=== PATIENT | male | born 1930 | race Caucasian/White ===

== ENCOUNTER → 2016-10-28 | Outpatient (CLI) | payer MEDICARE, BC ==
--- NOTE | 2016-10-28 11:31 | NM ---
EXAMINATION TYPE: NM bone 3 phase DATE OF EXAM: 10/28/2016 11:20 AM COMPARISON: 07/31 and 08/03/2016 HISTORY: Swelling right foot Triple phase bone scintigraphy was performed following the injection of27.2 mCi Tc 99m MDP. Immediat e images and 3.5 hours post injection images acquired. FINDINGS: Perfusion images demonstrate increased perfusion to the right ankle and midfoot. Blood pool imaging d emonstrates diffuse soft tissue uptake compatible cellulitis. Delayed uptake demonstrates focal abnormal uptake in the region of the fourth and fifth metatarsals o f the right foot. Abnormal uptake involving the MTP joint of both digits likely post arthritic. IMPRESSION: 1. There is persistent abnormal uptake involving the fourth and fifth digit right foot with increased perfusion and soft tissue uptake suggestive of persistent osteomyelitis and cellulitis which may be slightly progressed from the previous exam..
== END | disposition home or self-care (01) ==
LOC: RADNMMAIN 07:24
PROVIDERS: ATTEND Podiatrist
DX: M86.9 Osteomyelitis, unspecified (principal)
CPT/HCPCS: 78315; A9503

== ENCOUNTER 2016-11-17 10:33 | Inpatient (IN) | payer MEDICARE, BC ==
[2016-11-17] MEDS ORDERED: SODIUM CHLORIDE 0.9% 500 ML IV STA (11:10)
[2016-11-17] MEDS ORDERED: ACETAMINOPHEN IV (For NPO) 1,000 MG in SALINE 100 100ML.BAG IVPB STA (11:11)
[2016-11-17] MEDS ORDERED: IBUPROFEN IV 600 MG in SODIUM CHLORIDE 0.9% 250 ML IV STA (11:11)
[2016-11-17] MEDS ORDERED: IPRATROPIUM-ALBUTEROL 3 ML NEB INHALATION STA (11:12)
--- NOTE | 2016-11-17 11:15 | ED ---
General Adult HPI - General Chief complaint: Shortness of Breath Stated complaint: Vomiting Blood Time Seen by Provider: 11/17/16 11:00 Source: patient, RN notes reviewed Mode of arrival: EMS Limitations: no limitations - History of Present Illness Initial comments: This is an 85-year-old male who presents emergency Department because he has been coughing up some blood lately and his oxygenation has been low. Family states it was in the upper 80s. Patient also underwent fever at home yesterday. Patient is feeling worse today and weaker so they brought him to the emergency department. Patient states he has noticed pain somewhat short of breath but states he is coughing but not that much. Patient denies any chest pain or palpitations. Patient denies any abdominal pain patient denies nausea vomiting diarrhea. Patient denies any headache patient denies numbness weakness. Patient denies any dysuria or hematuria. - Related Data Home Medications Medication Instructions Recorded Confirmed Clopidogrel [Plavix] 75 mg PO DAILY 02/28/16 11/17/16 Enalapril/Hydrochlorothiazide 1 tab PO DAILY 02/28/16 11/17/16 [Vaseretic 10-25 mg] Isosorbide Mononitrate ER [Imdur] 60 mg PO DAILY 02/28/16 11/17/16 Metoprolol Succinate [Toprol XL] 25 mg PO DAILY 02/28/16 11/17/16 Carbidopa/Levodopa 2 tab PO DAILY@0900,1400 02/29/16 11/17/16 [Carbidopa-Levodopa 25-100 Tab] Alpha Lipoic Acid 500mg 500 mg PO DAILY 07/30/16 11/17/16 Aspirin EC [Ecotrin Low Dose] 81 mg PO DAILY 07/30/16 11/17/16 Cyanocobalamin [Vitamin B-12] 1,000 mcg PO DAILY 07/30/16 11/17/16 Fish Oil/Dha/Epa [Fish Oil 1,200 1 cap PO DAILY 07/30/16 11/17/16 mg Fish Oil] HYDROcodone/APAP 5-325MG [[place] 1 tab PO Q6H PRN 07/30/16 11/17/16 5-325] Milk Thistle 150 mg PO DAILY 07/30/16 11/17/16 Thiamine [Vitamin B-1] 100 mg PO DAILY 07/30/16 11/17/16 Ubidecarenone [Co Q-10] 200 mg PO DAILY 07/30/16 11/17/16 diphenhydrAMINE [Benadryl] 25 mg PO BID PRN 08/21/16 11/17/16 Rosuvastatin [Crestor] 20 mg PO DAILY 11/17/16 11/17/16 Allergies Allergy/AdvReac Type Severity Reaction Status Date / Time Sulfa (Sulfonamide Allergy Rash/Hives Verified 11/17/16 11:23 Antibiotics) Review of Systems ROS Statement: Those systems with pertinent positive or pertinent negative responses have been documented in the HPI. ROS Other: All systems not noted in ROS Statement are negative. Past Medical History Past Medical History: Hyperlipidemia, Hypertension, Myocardial Infarction ([place]) Additional Past Medical History / Comment(s): emphesema Last Myocardial Infarction Date:: 1991 History of Any Multi-Drug Resistant Organisms: MRSA Date of last positivie culture/infection: 03/03/16 MDRO Source:: right leg Past Surgical History: Coronary Bypass/CABG, Heart Catheterization With Stent Additional Past Surgical History / Comment(s): lung, legionaires, vascular surgery Past Anesthesia/Blood Transfusion Reactions: No Reported Reaction Date of Last Stent Placement:: 2010 Past Psychological History: No Psychological Hx Reported Additional Psychological History / Comment(s): lives in the family home. No recent travel. Retired. No new animal exposures Smoking Status: Never smoker Past Alcohol Use History: Occasional Past Drug Use History: None Reported - Past Family History Father History Unknown: Yes General Exam - General Exam Comments Initial Comments: GENERAL: Patient is well-developed and well-nourished. Patient is nontoxic and well- hydrated and is in mild distress. I repeated the patient's temperature was 101.2 ENT: Neck is soft and supple. No significant lymphadenopathy is noted. Oropharynx is clear. Moist mucous membranes. Neck has full range of motion without eliciting any pain. EYES: The sclera were anicteric and conjunctiva were pink and moist. Extraocular movements were intact and pupils were equal round and reactive to light. Eyelids were unremarkable. PULMONARY: She has crackles bilateral bases CARDIOVASCULAR: There is a regular rate and rhythm without any murmurs gallops or rubs. ABDOMEN: Soft and nontender with normal bowel sounds. No palpable organomegaly was noted. There is no palpable pulsatile mass. SKIN: Skin is clear with no lesions or rashes and otherwise unremarkable. NEUROLOGIC: Patient is alert and oriented x3. Cranial nerves II through XII are grossly intact. Motor and sensory are also intact. MUSCULOSKELETAL: Normal extremities with adequate strength and full range of motion. No lower extremity swelling or edema. No calf tenderness. LYMPHATICS: No significant lymphadenopathy is noted PSYCHIATRIC: Normal psychiatric evaluation. Limitations: no limitations Course Vital Signs 11/17/16 11/17/16 11/17/16 10:53 11:11 12:22 Temperature 98.9 F 101.2 F H 98.1 F Pulse Rate 111 H 88 Respiratory 18 16 Rate Blood Pressure 129/81 114/77 O2 Sat by Pulse 93 L 91 L Oximetry 11/17/16 13:43 Temperature Pulse Rate 84 Respiratory 16 Rate Blood Pressure 111/72 O2 Sat by Pulse 93 L Oximetry Medical Decision Making - Medical Decision Making EKG shows sinus tachycardia at 112 bpm WA interval is 150 QRS is 110 QT interval 352 QTC is 480. Patient's EKG shows some slight ST segment depression in leads V4 V5 and V6 as well as 1 and aVL. Chest x-ray shows congestive heart failure. And a left-sided pneumonia. Patient was started on Levaquin. Patient also started on heparin for the elevated troponin and CK-MB. I spoke with Dr. Irene about the case he is aware of the elevated troponin and he agreed with the heparin administration. I spoke with Dr. Wynn I admitted the patient and wrote admitting orders I consulted cardiology - Lab Data Result diagrams: 11/17/16 10:47 11/17/16 10:47 Lab Results 11/17/16 11/17/16 11/17/16 Range/Units 10:47 10:47 10:47 WBC 12.2 H (3.8-10.6) k/uL RBC 3.94 L (4.30-5.90) m/uL Hgb 13.0 (13.0-17.5) gm/dL Hct 39.5 (39.0-53.0) % MCV 100.3 H (80.0-100.0) fL MCH 33.1 (25.0-35.0) pg MCHC 33.0 (31.0-37.0) g/dL RDW 15.4 (11.5-15.5) % Plt Count 172 (150-450) k/uL Neutrophils % 89 % Lymphocytes % 3 % Monocytes % 6 % Eosinophils % 0 % Basophils % 0 % Neutrophils # 10.9 H (1.3-7.7) k/uL Lymphocytes # 0.4 L (1.0-4.8) k/uL Monocytes # 0.8 (0-1.0) k/uL Eosinophils # 0.0 (0-0.7) k/uL Basophils # 0.0 (0-0.2) k/uL Macrocytosis Slight PT (9.0-12.0) sec INR (<1.1) APTT (22.0-30.0) sec D-Dimer (<0.60) mg/L FEU Sodium 134 L (137-145) mmol/L Potassium 4.3 (3.5-5.1) mmol/L Chloride 96 L (98-107) mmol/L Carbon Dioxide 25 (22-30) mmol/L Anion Gap 13 mmol/L BUN 21 H (9-20) mg/dL Creatinine 0.58 L (0.66-1.25) mg/dL Est GFR (MDRD) Af Amer >60 (>60 ml/min/1.73 sqM) Est GFR (MDRD) Non-Af >60 (>60 ml/min/1.73 sqM) Glucose 138 H (74-99) mg/dL Plasma Lactic Acid [place] (0.7-2.0) mmol/L Calcium 9.2 (8.4-10.2) mg/dL Magnesium 1.7 (1.6-2.3) mg/dL Total Bilirubin 2.2 H (0.2-1.3) mg/dL AST 65 H (17-59) U/L ALT 33 (21-72) U/L Alkaline Phosphatase 67 (38-126) U/L Total Creatine Kinase 342 H (55-170) U/L CK-MB (CK-2) 22.9 H* (0.0-2.4) ng/mL CK-MB (CK-2) Rel Index 6.7 Troponin I 5.400 H* (0.000-0.034) ng/mL NT-Pro-B Natriuret Pep pg/mL Total Protein 6.9 (6.3-8.2) g/dL Albumin 4.0 (3.5-5.0) g/dL Urine Color Urine Appearance (Clear) Urine pH (5.0-8.0) Ur Specific [place] (1.001-1.035) Urine Protein (Negative) Urine Glucose (UA) (Negative) Urine Ketones (Negative) Urine Blood (Negative) Urine Nitrite (Negative) Urine Bilirubin (Negative) Urine Urobilinogen (<2.0) mg/dL Ur Leukocyte Esterase (Negative) Urine RBC (0-5) /hpf Urine WBC (0-5) /hpf Influenza Type A RNA (Not Detectd) Influenza Type B (PCR) (Not Detectd) 11/17/16 11/17/16 11/17/16 Range/Units 10:47 10:47 10:47 WBC (3.8-10.6) k/uL RBC (4.30-5.90) m/uL Hgb (13.0-17.5) gm/dL Hct (39.0-53.0) % MCV (80.0-100.0) fL MCH (25.0-35.0) pg MCHC (31.0-37.0) g/dL RDW (11.5-15.5) % Plt Count (150-450) k/uL Neutrophils % % Lymphocytes % % Monocytes % % Eosinophils % % Basophils % % Neutrophils # (1.3-7.7) k/uL Lymphocytes # (1.0-4.8) k/uL Monocytes # (0-1.0) k/uL Eosinophils # (0-0.7) k/uL Basophils # (0-0.2) k/uL Macrocytosis PT 12.4 H (9.0-12.0) sec INR 1.3 (<1.1) APTT 26.0 (22.0-30.0) sec D-Dimer 0.57 (<0.60) mg/L FEU Sodium (137-145) mmol/L Potassium (3.5-5.1) mmol/L Chloride (98-107) mmol/L Carbon Dioxide (22-30) mmol/L Anion Gap mmol/L BUN (9-20) mg/dL Creatinine (0.66-1.25) mg/dL Est GFR (MDRD) Af Amer (>60 ml/min/1.73 sqM) Est GFR (MDRD) Non-Af (>60 ml/min/1.73 sqM) Glucose (74-99) mg/dL Plasma Lactic Acid [place] 1.9 (0.7-2.0) mmol/L Calcium (8.4-10.2) mg/dL Magnesium (1.6-2.3) mg/dL Total Bilirubin (0.2-1.3) mg/dL AST (17-59) U/L ALT (21-72) U/L Alkaline Phosphatase (38-126) U/L Total Creatine Kinase (55-170) U/L CK-MB (CK-2) (0.0-2.4) ng/mL CK-MB (CK-2) Rel Index Troponin I (0.000-0.034) ng/mL NT-Pro-B Natriuret Pep 5760 pg/mL Total Protein (6.3-8.2) g/dL Albumin (3.5-5.0) g/dL Urine Color Urine Appearance (Clear) Urine pH (5.0-8.0) Ur Specific [place] (1.001-1.035) Urine Protein (Negative) Urine Glucose (UA) (Negative) Urine Ketones (Negative) Urine Blood (Negative) Urine Nitrite (Negative) Urine Bilirubin (Negative) Urine Urobilinogen (<2.0) mg/dL Ur Leukocyte Esterase (Negative) Urine RBC (0-5) /hpf Urine WBC (0-5) /hpf Influenza Type A RNA (Not Detectd) Influenza Type B (PCR) (Not Detectd) 11/17/16 11/17/16 Range/Units 12:20 13:41 WBC (3.8-10.6) k/uL RBC (4.30-5.90) m/uL Hgb (13.0-17.5) gm/dL Hct (39.0-53.0) % MCV (80.0-100.0) fL MCH (25.0-35.0) pg MCHC (31.0-37.0) g/dL RDW (11.5-15.5) % Plt Count (150-450) k/uL Neutrophils % % Lymphocytes % % Monocytes % % Eosinophils % % Basophils % % Neutrophils # (1.3-7.7) k/uL Lymphocytes # (1.0-4.8) k/uL Monocytes # (0-1.0) k/uL Eosinophils # (0-0.7) k/uL Basophils # (0-0.2) k/uL Macrocytosis PT (9.0-12.0) sec INR (<1.1) APTT (22.0-30.0) sec D-Dimer (<0.60) mg/L FEU Sodium (137-145) mmol/L Potassium (3.5-5.1) mmol/L Chloride (98-107) mmol/L Carbon Dioxide (22-30) mmol/L Anion Gap mmol/L BUN (9-20) mg/dL Creatinine (0.66-1.25) mg/dL Est GFR (MDRD) Af Amer (>60 ml/min/1.73 sqM) Est GFR (MDRD) Non-Af (>60 ml/min/1.73 sqM) Glucose (74-99) mg/dL Plasma Lactic Acid [place] (0.7-2.0) mmol/L Calcium (8.4-10.2) mg/dL Magnesium (1.6-2.3) mg/dL Total Bilirubin (0.2-1.3) mg/dL AST (17-59) U/L ALT (21-72) U/L Alkaline Phosphatase (38-126) U/L Total Creatine Kinase (55-170) U/L CK-MB (CK-2) (0.0-2.4) ng/mL CK-MB (CK-2) Rel Index Troponin I (0.000-0.034) ng/mL NT-Pro-B Natriuret Pep pg/mL Total Protein (6.3-8.2) g/dL Albumin (3.5-5.0) g/dL Urine Color Dark Yellow Urine Appearance Clear (Clear) Urine pH 5.5 (5.0-8.0) Ur Specific [place] 1.026 (1.001-1.035) Urine Protein 1+ H (Negative) Urine Glucose (UA) Negative (Negative) Urine Ketones 1+ H (Negative) Urine Blood Negative (Negative) Urine Nitrite Negative (Negative) Urine Bilirubin Negative (Negative) Urine Urobilinogen <2.0 (<2.0) mg/dL Ur Leukocyte Esterase Negative (Negative) Urine RBC 1 (0-5) /hpf Urine WBC <1 (0-5) /hpf Influenza Type A RNA Not Detected (Not Detectd) Influenza Type B (PCR) Not Detected (Not Detectd) Critical Care Time Critical Care Time: Yes Total Critical Care Time: 35 Disposition Clinical Impression: Acute pulmonary edema, Pneumonia, Non-STEMI (non-ST elevated myocardial infarction) Disposition: ADMITTED IP TO THIS HOSP Referrals: Hector Ibarra MD [Primary Care Provider] - 1-2 days Time of Disposition: 14:09
[2016-11-17 11:34] LABS: Basophils % (A) 0 %; CH 33.2; CHCM 33.2; Eosinophils % (A) 0 %; HCT 39.5 % (39.0-53.0); HDW 2.37; Luc # (Auto) 0.15; Luc % (Auto) 1; Lymphocytes # (A) 0.4 k/uL (1.0-4.8); Lymphocytes % (A) 3 %; MCH 33.1 pg (25.0-35.0); MCV 100.3 fL (80.0-100.0); Macrocytosis Slight; Monocytes # (A) 0.8 k/uL (0-1.0); Monocytes % (A) 6 %; Neutrophils # (A) 10.9 k/uL (1.3-7.7); Neutrophils % (A) 89 %; RBC 3.94 m/uL (4.30-5.90); RDW 15.4 % (11.5-15.5); WBC 12.2 k/uL (3.8-10.6); WBC (Perox) 12.83
[2016-11-17 11:42] LABS: ALT 33 U/L (21-72); AST 65 U/L (17-59); Alkaline Phosphatase 67 U/L (38-126); Anion Gap 13 mmol/L; Blood Urea Nitrogen 21 mg/dL (9-20); Calcium 9.2 mg/dL (8.4-10.2); Carbon Dioxide 25 mmol/L (22-30); Chloride 96 mmol/L (98-107); Glucose 138 mg/dL (74-99); Magnesium 1.7 mg/dL (1.6-2.3); Non-African American GFR(MDRD) >60 (>60 ml/min/1.73 sqM); Potassium 4.3 mmol/L (3.5-5.1); Sodium 134 mmol/L (137-145); Total Bilirubin 2.2 mg/dL (0.2-1.3); Total Protein 6.9 g/dL (6.3-8.2)
--- NOTE | 2016-11-17 11:53 | XR ---
EXAMINATION TYPE: XR chest 2V DATE OF EXAM: 11/17/2016 11:44 AM COMPARISON: None HISTORY: 85-year-old male difficulty breathing TECHNIQUE: AP and lateral views FINDINGS: There are median sternotomy wires. Heart is mildly enlarged with diffuse interstitial and patchy biba silar opacities. Small effusion seen on the lateral view. IMPRESSION: 1. Mild cardiomegaly with diffuse interstitial densities and some patchy bibasilar opacities. Correla te for possible CHF with interstitial edema. 2. Small pleural effusions with adjacent atelectasis and/or consolidation.
[2016-11-17 12:00] LABS: INR 1.3 (<1.1); Prothrombin Time 12.4 sec (9.0-12.0)
[2016-11-17 12:13] LABS: Creatine Kinase MB 22.9 ng/mL (0.0-2.4); Troponin I 5.4 ng/mL (0.000-0.034)
[2016-11-17] MEDS ORDERED: FUROSEMIDE 10 MG/ML 2 ML VIAL IV ONE (12:16)
[2016-11-17] MEDS ORDERED: HEPARIN SODIUM,PORCINE 5,000 UNIT/ML 1 ML VIAL IV ONE (12:17)
[2016-11-17] MEDS ORDERED: LEVOFLOXACIN 750MG-D5W PMX 750 MG in DEXTROSE/WATER 1 150ML.BAG IVPB STA (13:21)
[2016-11-17] MEDS ORDERED: LEVOFLOXACIN 750MG-D5W PMX 750 MG in DEXTROSE/WATER 1 150ML.BAG IVPB SCH (13:30)
[2016-11-17] MEDS: HEPARIN SODIUM,PORCINE/D5W PMX 25,000 UNIT in DEXTROSE/WATER 1 500ML.BAG IV SCH (13:30)
[2016-11-17 14:05] LABS: Appearance,Urine Clear (Clear); Bilirubin,Urine Negative (Negative); Glucose,Urine (UA) Negative (Negative); Ketones,Urine 1+ (Negative); Leukocyte Esterase,Urine Negative (Negative); Nitrite,Urine Negative (Negative); PH, Urine 5.5 (5.0-8.0); Particle Count 3245; Protein,Urine 1+ (Negative); RBC,Urine 1 /hpf (0-5); Specific Gravity,Urine 1.026 (1.001-1.035); UA Billing (MACRO vs. MICRO) MICRO; Urobilinogen,Urine <2.0 mg/dL (<2.0); WBC,Urine <1 /hpf (0-5)
--- NOTE | 2016-11-17 18:15 | CONS ---
DATE OF CONSULTATION: 11/17/2016 CHIEF COMPLAINT: Shortness of breath. This is an 85-year-old gentleman with history of coronary artery disease, status post CABG, hypertension, dyslipidemia, prior multiple angioplasties who presented to hospital with symptoms of an episode of confusion, not feeling well, fatigue, tired, cough, questionable hemoptysis and patient also had hypoxia. He comes in EKG showed ST-T wave changes that could be due to subendocardial ischemia with sinus tachycardia. Cardiology has been consulted because of elevated troponin. His troponin is elevated at 5.4 suggestive of non-ST segment elevation myocardial infarction. He also has his d-dimer is negative. BNP is elevated at 5760 suggestive of acute exacerbation of chronic systolic heart failure. Past medical history is significant for coronary artery disease, status post CABG, status post angioplasty, chronic atrial fibrillation, hypertension, dyslipidemia. Current medications include: 1. Aspirin. 2. Zestoretic. 3. Carbidopa. 4. Imdur. 5. Plavix. 6. Crestor. ALLERGIC TO SULFA. Family history is negative for premature coronary artery disease. SOCIAL HISTORY: Negative for current smoking, ETOH use or drug abuse. REVIEW OF SYSTEMS: HEENT: Unremarkable. CARDIAC: As described above. RESPIRATORY: As described above. GI: Negative. GENITOURINARY: Negative. Allergy/immunology: Negative. SKIN: Negative. MUSCULOSKELETAL: Significant for arthritis and chronic nonhealing ulcers. PSYCHOSOCIAL: Negative. ENDOCRINE: Negative. Dermatology: Negative. CONSTITUTIONAL: Significant for fever. The rest of the system review is not relevant. On exam, comfortable at rest. Afebrile. Vital signs are stable. Chest exam reveals diminished air entry at the bases. Heart exam reveals first and second heart sounds and a systolic murmur at the left lower sternal border. Abdomen soft. Exam of extremities reveals bilateral pitting edema and diminished pedal pulses. EKG shows chronic atrial fibrillation with nonspecific ST-T wave changes. Hemoglobin is 13, platelet count is 170, potassium is 4.3. Troponin is elevated at 5.4 with an elevated BNP. ASSESSMENT: 1. Acute non- ST segment elevation myocardial infarction. 2. Acute exacerbation of chronic systolic heart failure. 3. Fever of unclear etiology. 4. Chronic nonhealing ulcers. 5. Chronic atrial fibrillation. PLAN: We will treat the patient with IV heparin. Continue the nitrates. Continue the aspirin, Plavix along with the statins. I am going to obtain records from his natural resource technician, to see what had been done and what his baseline LV function is like and whether his A. fib is chronic, if so, as to why he is not on a long-term anticoagulation.
[2016-11-17 19:30] LABS: Creatine Kinase MB 47.8 ng/mL (0.0-2.4); Troponin I 16.5 ng/mL (0.000-0.034)
[2016-11-17] MEDS ORDERED: HYDROcodone/APAP 5-325MG 1 EACH TAB PO PRN (19:37)
[2016-11-17] MEDS ORDERED: diphenhydrAMINE 25 MG CAP PO PRN (19:37)
[2016-11-17] MEDS: NITROGLYCERIN OINT 1 INCH/GM PACKET TOPICAL SCH (20:32)
[2016-11-17] MEDS: FUROSEMIDE 10 MG/ML 2 ML VIAL IV SCH (20:32)
[2016-11-17] MEDS: HEPARIN SODIUM,PORCINE 5,000 UNIT/ML 1 ML VIAL IV PRN (21:50)
[2016-11-17] MEDS: NITROGLYCERIN SL TABS 0.4 MG TAB SUBLINGUAL PRN ×3 (22:29→23:23)
[2016-11-17 23:12] LABS: Creatine Kinase MB 43.9 ng/mL (0.0-2.4)
[2016-11-18] MEDS: NITROGLYCERIN OINT 1 INCH/GM PACKET TOPICAL SCH ×4 (00:19→16:57)
[2016-11-18] MEDS ORDERED: FUROSEMIDE 10 MG/ML 4 ML VIAL IV STA (01:30)
[2016-11-18 01:37] LABS: Glucose,Whole Blood 200 mg/dL (75-99)
--- NOTE | 2016-11-18 02:06 | XR ---
EXAM: XR Chest, 1 View. CLINICAL HISTORY: Shortness of breath TECHNIQUE: Frontal view of the chest. COMPARISON: 11/18/19 16/07/41 FINDINGS: Lungs: Increased bibasilar opacities are nonspecific, likely atelectasis and possibly pneumonia. Increased diffuse bilateral airspace opacities are nonspecific, possibly edema or an infectious or inflammatory process. Pleural space: Increased small bilateral pleural effusions. No pneumothorax. Heart: Stable postoperative mediastinum and cardiomediastinal silhouette. Mediastinum: See above. Bones/joints: No acute osseous abnormality. IMPRESSION: Increased bibasilar opacities, likely a combination of small effusions, atelectasis, or pneumonia. Increased nonspecific bilateral airspace opacities, possibly edema or an infectious or inflammatory process.
[2016-11-18 03:41] LABS: Glucose,Whole Blood 167 mg/dL (75-99)
[2016-11-18 04:36] LABS: Basophils % (A) 0 %; CH 33.3; CHCM 33.2; Eosinophils % (A) 0 %; HCT 40.1 % (39.0-53.0); HDW 2.44; HGB 13.1 gm/dL (13.0-17.5); Luc # (Auto) 0.14; Luc % (Auto) 1; Lymphocytes # (A) 0.3 k/uL (1.0-4.8); Lymphocytes % (A) 2 %; MCHC 32.7 g/dL (31.0-37.0); MCV 100.9 fL (80.0-100.0); Macrocytosis Slight; Mean Platelet Volume 6.6; Monocytes # (A) 0.6 k/uL (0-1.0); Monocytes % (A) 5 %; Neutrophils % (A) 92 %; RBC 3.97 m/uL (4.30-5.90); RDW 15.4 % (11.5-15.5); WBC (Perox) 12.26
[2016-11-18 05:17] LABS: ALT 36 U/L (21-72); AST 90 U/L (17-59); Alkaline Phosphatase 72 U/L (38-126); Anion Gap 12 mmol/L; Blood Urea Nitrogen 27 mg/dL (9-20); Calcium 8.5 mg/dL (8.4-10.2); Carbon Dioxide 23 mmol/L (22-30); Chloride 96 mmol/L (98-107); Cholesterol 111 mg/dL (<200); Glucose 175 mg/dL (74-99); HDL Cholesterol 81 mg/dL (40-60); Magnesium 1.6 mg/dL (1.6-2.3); Non-African American GFR(MDRD) >60 (>60 ml/min/1.73 sqM); Phosphorous 3.5 mg/dL (2.5-4.5); Potassium 3.7 mmol/L (3.5-5.1); Sodium 131 mmol/L (137-145); Total Bilirubin 1.9 mg/dL (0.2-1.3); Total Protein 6.3 g/dL (6.3-8.2); Triglycerides 50 mg/dL (<150)
[2016-11-18] MEDS ORDERED: Potassium Replacement Protocol 1 EACH MISC MISCELLANE PRN ×2 (05:51→19:37)
[2016-11-18] MEDS ORDERED: Magnesium Replacement Protocol 1 EACH MISC MISCELLANE PRN (05:51)
[2016-11-18] MEDS: POTASSIUM CHLORIDE 10 MEQ, LIDOCAINE 2% INJ 10 MG in SODIUM CHLORIDE 0.9% 100 ML IV SCH ×2 (06:37→08:42)
[2016-11-18] MEDS: MAGNESIUM SULFATE-D5W PMX 1 GM in DEXTROSE/WATER 1 100ML.BAG IVPB SCH ×2 (06:38→08:42)
--- NOTE | 2016-11-18 07:38 | HP ---
DATE OF ADMISSION: The chief complaints are shortness of breath and cough, hemoptysis and transient weakness. HISTORY OF PRESENT ILLNESS: This is an 85-year-old gentleman with a past medical history of multiple medical problems, including history of hypertension, hyperlipidemia, myocardial infarction, basal cell carcinoma, history of CAD, CABG and stent, being followed by Dr. Hector Ibarra in the outpatient setting, not feeling well over the last couple days and the patient was taken to [facility] and admitted for further evaluation and treatment. The patient was found to have low oxygenation at 80%. Patient is short of breath. Patient has also hemoptysis. Patient also has some cough. Patient did not have any chest pain. Patient had features of pulmonary edema, changes are noted and troponin is elevated p to 5.40 and 16.50 indicating acute non- ST-elevation myocardial infarction. Patient admitted for further evaluation, Cardiology evaluation, is negative. There is no history of any rigors, chills. No history of headache, loss of consciousness or seizures. PAST MEDICAL HISTORY: History of hypertension, hyperlipidemia, myocardial infarction, CAD, CABG, stent. Medications prior to admission include home medications are: 1. Benadryl 25 mg q.i.d. p.r.n. 2. Coenzyme Q-10 two hundred mg p.o. daily. 3. Vitamin B1 one hundred mg p.o. daily. 4. Milk Thistle 150 mg p.o. daily. 5. [place] 1 tablet q.6 p.r.n. 6. Fish oil 1200 mg p.o. daily. 7. Vitamin B12 one thousand mcg p.o. daily. 8. Ecotrin 81 mg. 9. Lipoic acid 500 mg p.o. daily. 10. Enalapril 1 tablet p.o. daily. 11. Carbidopa levodopa 2 tablets p.o. daily. 12. Metoprolol 25 mg p.o. daily. 13. Imdur 60 mg p.o. daily. 14. Plavix 75 mg p.o. daily. 15. Crestor 20 mg p.o. daily. Allergies to SULFA. FAMILY HISTORY: History of myocardial infarction and surgery. SOCIAL HISTORY: Alcohol occasionally. No history of smoking. REVIEW OF SYSTEMS: ENT: Diminishing hearing. CARDIOVASCULAR SYSTEM: As mentioned earlier. RESPIRATORY: As mentioned earlier. GI: No nausea. : No dysuria. NERVOUS SYSTEM: No numbness or weakness. ALLERGY/IMMUNOLOGY: No asthma. MUSCULOSKELETAL: As mentioned earlier. HEMATOLOGY/IMMUNOLOGY: As mentioned earlier. ENDOCRINE: As mentioned earlier. CONSTITUTIONAL: As mentioned earlier. RHEUMATOLOGY: Negative. PSYCHIATRY: As mentioned earlier. PHYSICAL EXAMINATION: Patient is alert and oriented x2. Pulse is 83, blood pressure 97/62, respirations 18, temperature 97.8, pulse ox 97% on 5 L. HEENT: Conjunctivae normal. NECK: No jugular venous distension. CARDIOVASCULAR SYSTEM: S1, S2, muffled. RESPIRATORY: Breath sounds diminished at the bases. Bilateral scattered rhonchi and no crackles. Abdomen is soft, nontender. No mass palpable. Obese. EXTREMITIES: Legs no edema, no swelling. NERVOUS SYSTEM: Higher functions as mentioned earlier, moves all 4 limbs, no focal motor deficits. LYMPHATICS: No lymph node enlargement. SKIN: No ulcer, rash or bleeding. LABS: WBC is 12.2, hemoglobin is 13, MCV is 100.3, sodium 134, other labs are noted. ASSESSMENT: 1. Acute [id number] myocardial infarction with acute pulmonary with congestive heart failure exacerbation, with acute hypoxic respiratory failure. 2. Troponin 16.500. 3. Increased WBC, possibly reactive. 4. Increased MCV. 5. Hyponatremia. 6. Obesity with a body mass index of 30.2. 7. Hyperbilirubinemia. 8. Increased AST. 9. History of hypertension. 10. History of hyperlipidemia. 11. History of myocardial infarction. 12. History of Parkinson's. 13. History of Legionnaires disease. 14. History of right foot osteomyelitis. 15. Coronary artery disease, coronary artery bypass grafting, stent. 16. FULL CODE. RECOMMENDATION: In this 85-year-old woman who presented with multiple complex medical issues, will monitor the patient closely. Continue with the current medication and careful diuretics at this time. Otherwise, continue with protocol. Cardiology is following the patient closely and continue to monitor. PT, OT evaluation, YAIMA inhibitors. Patient also started on empiric antibiotics also. I would also recommend evaluation by Dr. Carranza also because of the Parkinson's. Home medications will be continued and the prognosis guarded because of multiple complex medical issues. Further recommendations to follow. MTDD
--- NOTE | 2016-11-18 07:41 | XR ---
EXAMINATION TYPE: XR chest 1V DATE OF EXAM: 11/18/2016 6:57 AM COMPARISON: 11/18/2016 HISTORY: Shortness of breath FINDINGS: There are bilateral pleural effusions with cardiomegaly and bibasilar infiltrate. There is a diffuse interstitial pattern. Postsurgical changes noted in the pleural-parenchymal changes are stable. IMPRESSION: 1. Diffuse pleural-parenchymal changes with findings suggestive of pulmonary edema, versus diffuse pn eumonia or ARDS.
[2016-11-18] MEDS ORDERED: NON-FORMULARY DRUG (Ubidecarenone [Co Q-10] 200 MG) PO SCH (09:00)
[2016-11-18] MEDS ORDERED: METOPROLOL SUCCINATE (ER) 25 MG TAB.ER.24H PO SCH (09:00)
[2016-11-18] MEDS ORDERED: NON-FORMULARY DRUG (Milk Thistle [Milk Thistle] 150 MG) PO SCH (09:00)
[2016-11-18] MEDS ORDERED: ASPIRIN 325 MG TAB PO SCH (09:00)
[2016-11-18] MEDS ORDERED: LISINOPRIL 20 MG TAB PO SCH (09:00)
[2016-11-18] MEDS ORDERED: ALPHA LIPOIC ACID PO SCH (09:00)
[2016-11-18] MEDS ORDERED: NON-FORMULARY DRUG (Fish Oil/Dha/Epa [Fish Oil 1,200 Mg Fish Oil] 1 CAP) PO SCH (09:00)
[2016-11-18] MEDS: FUROSEMIDE 10 MG/ML 2 ML VIAL IV SCH (09:29)
[2016-11-18] MEDS: CYANOCOBALAMIN 500 MCG TAB PO SCH (09:29)
[2016-11-18] MEDS: ATORVASTATIN 40 MG TAB PO SCH ×2 (09:30→09:37)
[2016-11-18] MEDS: CARBIDOPA-LEVODOPA 25-100 MG 1 EACH TAB PO SCH ×2 (09:30→14:07)
[2016-11-18] MEDS: ASPIRIN 81 MG CHEW PO SCH (09:30)
[2016-11-18] MEDS: ISOSORBIDE MONONITRATE ER 60 MG TAB.ER.24H PO SCH (09:30)
[2016-11-18] MEDS: CLOPIDOGREL 75 MG TAB PO SCH (09:30)
[2016-11-18] MEDS: HYDROCHLOROTHIAZIDE 25 MG TAB PO SCH (09:31)
[2016-11-18] MEDS: PANTOPRAZOLE 40 MG/10 ML VIAL IV SCH (10:23)
[2016-11-18] MEDS ORDERED: FUROSEMIDE 250 MG in SODIUM CHLORIDE 0.9% 225 ML IVP SCH (10:30)
[2016-11-18] MEDS: HEPARIN SODIUM,PORCINE/D5W PMX 25,000 UNIT in DEXTROSE/WATER 1 500ML.BAG IV SCH (10:54)
[2016-11-18] MEDS: HEPARIN SODIUM,PORCINE 5,000 UNIT/ML 1 ML VIAL IV PRN (10:58)
--- NOTE | 2016-11-18 11:15 | ECHOF ---
Referral Reason:Non-STEMI MEASUREMENTS -------- HEIGHT: 188.0 cm WEIGHT: 106.6 kg BP: 93/55 RVIDd: 2.1 cm (< 3.3) IVSd: 1.2 cm (0.6 - 1.1) LVIDd: 4.8 cm (3.9 - 5.3) LVPWd: 1.4 cm (0.6 - 1.1) IVSs: 2.1 cm LVIDs: 3.7 cm LVPWs: 1.8 cm LAESV Index (A-L): 32.96 ml/m Ao Diam: 3.0 cm (2.0 - 3.7) AV Cusp: 2.0 cm (1.5 - 2.6) LA Diam: 2.8 cm (2.7 - 3.8) MV EXCURSION: 20.477 mm (> 18.000) MV EF SLOPE: 134 mm/s (70 - 150) EPSS: 0.7 cm MV E Florin: 0.90 m/s MV DecT: 194 ms MV A Florin: 0.52 m/s MV E/A Ratio: 1.71 RAP: 5.00 mmHg RVSP: 63.60 mmHg FINDINGS -------- Sinus rhythm. This was a technically difficult study with suboptimal views. There is moderate concentric left ventricular hypertrophy. Overall left ventricular systolic function is severely impaired with, an EF between 25 - 30 %. Basal lateral LV wall motion is akinetic. Basal posterior LV wall motion is akinetic. Basal inferior LV wall motion is akinetic. Mid lateral LV wall motion is akinetic. Mid posterior LV wall motion is akinetic. Mid inferior LV wall motion is akinetic. Apical lateral LV wall motion is akinetic. Apical inferior LV wall motion is akinetic. The right ventricle is normal in size. LA is midly dilated 29-33ml/m2. The right atrium is normal in size. 1.5mg of Definity was utilized for enhancement of images Aortic valve is trileaflet and is moderately thickened. Moderate mitral annular calcification present. Mild mitral regurgitation is present. Rcof-dj-[id number] tricuspid regurgitation present. There is moderate to severe pulmonary hypertension. The right ventricular systolic pressure, as measured by Doppler, is 63.60mmHg. The pulmonic valve was not well visualized. Trace/mild (physiologic) pulmonic regurgitation. The aortic root size is normal. The inferior vena cava is mildly dilated. There is no pericardial effusion. CONCLUSIONS -------- 1. Sinus rhythm. 2. Mid inferior LV wall motion is akinetic. 3. Apical lateral LV wall motion is akinetic. 4. Apical inferior LV wall motion is akinetic. 5. LA is midly dilated 29-33ml/m2. 6. 1.5mg of Definity was utilized for enhancement of images 7. Aortic valve is trileaflet and is moderately thickened. 8. Moderate mitral annular calcification present. 9. Mild mitral regurgitation is present. 10. Sdtl-jh-rbjmpkvv tricuspid regurgitation present. 11. There is moderate to severe pulmonary hypertension. 12. This was a technically difficult study with suboptimal views. 13. The right ventricular systolic pressure, as measured by Doppler, is 63.60mmHg. 14. Trace/mild (physiologic) pulmonic regurgitation. 15. The aortic root size is normal. 16. The inferior vena cava is mildly dilated. 17. There is no pericardial effusion. 18. There is moderate concentric left ventricular hypertrophy. 19. Overall left ventricular systolic function is severely impaired with, an EF between 25 - 30 %. 20. Basal lateral LV wall motion is akinetic. 21. Basal posterior LV wall motion is akinetic. 22. Basal inferior LV wall motion is akinetic. 23. Mid lateral LV wall motion is akinetic. 24. Mid posterior LV wall motion is akinetic. [employer]: Eloina Linton RDCS
[2016-11-18 11:45] LABS: Appearance,Urine Clear (Clear); Bacteria,Urine Rare /hpf; Bilirubin,Urine Negative (Negative); Glucose,Urine (UA) Negative (Negative); Ketones,Urine Negative (Negative); Leukocyte Esterase,Urine Negative (Negative); Nitrite,Urine Negative (Negative); Particle Count 4066; Protein,Urine Negative (Negative); RBC,Urine 3 /hpf (0-5); Specific Gravity,Urine 1.006 (1.001-1.035); UA Billing (MACRO vs. MICRO) MICRO; Urobilinogen,Urine <2.0 mg/dL (<2.0); WBC,Urine 1 /hpf (0-5)
[2016-11-18] MEDS ORDERED: THIAMINE 100 MG TAB PO SCH (12:00)
--- NOTE | 2016-11-18 12:47 | DS ---
DATE OF ADMISSION: 11/17/2016 DATE OF DISCHARGE: DATE OF SERVICE: 11/18/2016 FINAL DIAGNOSES: 1. Acute non- ST-elevation myocardial infarction with acute pulmonary edema with congestive heart failure acute exacerbation with acute hypoxic respiratory failure, on BiPAP. 2. Troponin 16.500. 3. Increased WBC, possibly reactive. 4. Increased MCV. 5. Hyponatremia. 6. Obesity; body mass index of 30.2. 7. Hyperbilirubinemia. 8. Increased AST. 9. History of hypertension. 10. History of hyperlipidemia. 11. History of myocardial infarction. 12. History of Parkinson's disease. 13. History of Legionnaires disease. 14. History of right foot osteoarthritis. 15. Coronary artery disease, coronary artery bypass graft, stent. 16. FULL CODE. DISCHARGE DISPOSITION: The patient will be transferred to [facility] in a stable condition with guarded prognosis. Total time taken 35 minutes per recommendation by cardiology an as well as Dr. Carranza. HISTORY OF PRESENT ILLNESS: This 85-year-old gentleman with a past medical history of multiple medical problems as mentioned earlier being followed by Dr. Carlitos Ibarra in the outpatient setting was admitted with features of shortness of breath and as well as acute pulmonary edema and acute [id number] myocardial infarction. The patient has significant cardiogenic edema and the patient was subsequently transferred to ICU. The patient was given Lasix drip with some relief. The patient is on BiPAP as well. The patient is being closely monitored. The patient was being followed by Dr. Jones, cardiology at [place]. Case was discussed with the family, Dr. Carranza and cardiology and patient will be transferred to [place] for further evaluation and treatment. ON EXAM: CARDIOVASCULAR SYSTEM: S1, S2, muffled. RESPIRATORY: A few scattered rhonchi and crackles. ABDOMEN: Soft. NERVOUS SYSTEM: No focal deficits. Current medications are as follows: 1. [place] 5 mg q.6 p.r.n. 2. Aspirin 81 mg daily, 3. Lipitor 40 mg daily. 4. Carbidopa levodopa, Sinemet, 25/100 two tablets p.o. daily. 5. Plavix 75 mg p.o. daily. 6. Vitamin B12, 1000 mcg p.o. daily. 7. Benadryl 25 mg b.i.d. p.r.n. 8. Lasix drip. 9. Heparin p.r.n. 10. HydroDIURIL 25 mg p.o. daily. 11. Imdur 60 mg p.o. daily. 12. Levaquin 750 q.24 hours. 13. Zestril 20 mg daily. 14. Metoprolol 25 mg p.o. daily. Once again, the patient will be discharged in stable condition with guarded prognosis.
--- NOTE | 2016-11-18 12:53 | P.CNPUL ---
History of Present Illness Consult date: 11/18/16 Requesting physician: Juancarlos Doty Reason for consult: other (Acute pulmonary edema) Chief complaint: Shortness of breath History of present illness: This is an 85-year-old white male with history of severe coronary artery disease and previous CABG, history of LV dysfunction, ejection fraction on this echocardiogram is below 25%. Patient is also known to have history of hypertension, dyslipidemia, multiple angioplasties in the past done in [place], patient presented to the ER with multiple complaints including fatigue tiredness cough questionable blood-tinged sputum, EKG on presentation showed ST and T wave changes related to possible subendocardial ischemia. His troponin was elevated as high as 5.4, hence it was felt strongly that the patient had an acute non-ST segment elevation myocardial infarction. He was also noted to have elevated BNP level over 5700. Chest x-ray showed evidence of congestive heart failure/pulmonary edema. Patient was initially admitted to [facility], but later he was transferred to the intensive care unit, placed on BiPAP because of worsening shortness of breath, and I was asked to see him on consultation. Patient seems to be doing better with BiPAP, he already received 3 doses of Lasix, and I will go ahead and placed on a Lasix drip. After reviewing the chest x-ray, I felt that this is clearly a picture of severe pulmonary edema, congestive heart failure secondary to LV dysfunction. Presently the patient denies any headaches no blurred vision no dizziness, no chest pain, no nausea, no vomiting, no abdominal pain, no melena, and no hematemesis. Review of Systems 14 point review of systems were obtained, please refer to pertinent positives and negatives in HPI Past Medical History Past Medical History: Cancer, Hyperlipidemia, Hypertension, Myocardial Infarction (PR) Additional Past Medical History / Comment(s): BASAL CELL SKIN CANCER, PARKINSONS , CONSTIPATION, PST CHARTINGREFLECTED LEGIONNAIRS DISEASE, RT FOOT WOUND(HX OF OSTEOMYELITIS -GOES TO THE [facility] EVERY WEDNESDAY) Last Myocardial Infarction Date:: 1991 History of Any Multi-Drug Resistant Organisms: MRSA Date of last positivie culture/infection: 03/03/16 MDRO Source:: right leg Past Surgical History: Coronary Bypass/CABG, Heart Catheterization With Stent, Tonsillectomy Additional Past Surgical History / Comment(s): " 4 VESSEL CABG 23 OR 24 YEARS AGO"CATARACTS,SEVERAL HEART CATHS," X12 STENTS" Past Anesthesia/Blood Transfusion Reactions: No Reported Reaction Date of Last Stent Placement:: 2010 Past Psychological History: No Psychological Hx Reported Additional Psychological History / Comment(s): lives in the family home , (has 1 pet cat).-HAS 2 STEPS TO GET INTO HOME AND HOME IS A SINGLE LEVEL. GETS VISITING NURSES X1 WEEK, has cane/waler,scooter,w/c lift chair and built in shower chair. No recent travel, served in the [employer]. Retired used to work in purchasing. No new animal exposures Smoking Status: Never smoker Past Alcohol Use History: Occasional Past Drug Use History: None Reported - Past Family History Father History Unknown: Yes Family Medical History: Myocardial Infarction (PR) Mother Family Medical History: Cancer, Diabetes Mellitus Additional Family Medical History / Comment(s): "stomach problems and had bowel sx-"part of intestines removed" Medications and Allergies Home Medications Medication Instructions Recorded Confirmed Type Clopidogrel [Plavix] 75 mg PO DAILY 02/28/16 11/17/16 History Enalapril/Hydrochlorothiazide 1 tab PO DAILY 02/28/16 11/17/16 History [Vaseretic 10-25 mg] Isosorbide Mononitrate ER [Imdur] 60 mg PO DAILY 02/28/16 11/17/16 History Metoprolol Succinate [Toprol XL] 25 mg PO DAILY 02/28/16 11/17/16 History Carbidopa/Levodopa 2 tab PO DAILY@0900,1400 02/29/16 11/17/16 History [Carbidopa-Levodopa 25-100 Tab] Alpha Lipoic Acid 500mg 500 mg PO DAILY 07/30/16 11/17/16 History Aspirin EC [Ecotrin Low Dose] 81 mg PO DAILY 07/30/16 11/17/16 History Cyanocobalamin [Vitamin B-12] 1,000 mcg PO DAILY 07/30/16 11/17/16 History Fish Oil/Dha/Epa [Fish Oil 1,200 1 cap PO DAILY 07/30/16 11/17/16 History mg Fish Oil] HYDROcodone/APAP 5-325MG [Michie 1 tab PO Q6H PRN 07/30/16 11/17/16 History 5-325] Milk Thistle 150 mg PO DAILY 07/30/16 11/17/16 History Thiamine [Vitamin B-1] 100 mg PO DAILY 07/30/16 11/17/16 History Ubidecarenone [Co Q-10] 200 mg PO DAILY 07/30/16 11/17/16 History diphenhydrAMINE [Benadryl] 25 mg PO BID PRN 08/21/16 11/17/16 History Rosuvastatin [Crestor] 20 mg PO DAILY 11/17/16 11/17/16 History Allergies Allergy/AdvReac Type Severity Reaction Status Date / Time Sulfa (Sulfonamide Allergy Rash/Hives Verified 11/17/16 11:23 Antibiotics) Physical Exam Vitals: Vital Signs Temp Pulse Pulse Resp BP BP Pulse Ox 11/18/16 12:00 97.8 F 94 25 H 132/84 99 11/18/16 11:00 123 H 29 H 160/106 97 11/18/16 10:00 119 H 32 H 168/107 95 11/18/16 09:00 122 H 33 H 168/107 96 11/18/16 08:00 98.7 F 103 H 89 29 H 117/84 95 11/18/16 07:00 110 H 26 H 139/110 96 11/18/16 06:00 94 20 144/99 97 11/18/16 05:00 92 26 H 111/88 96 11/18/16 04:50 94 21 111/88 96 11/18/16 04:40 98 22 111/88 96 11/18/16 04:30 111 H 30 H 119/84 96 11/18/16 04:20 115 H 21 119/84 96 11/18/16 04:10 95 21 119/84 95 11/18/16 04:00 97.8 F 95 89 23 143/94 95 11/18/16 03:50 101 H 25 H 143/94 94 L 11/18/16 03:40 109 H 28 H 164/105 93 L 11/18/16 03:30 122 H 32 H 162/105 92 L 11/18/16 03:26 116 H 11/18/16 00:00 97.2 F L 89 20 113/71 91 L 11/17/16 20:00 84 18 108/70 93 L 11/17/16 16:43 97.8 F 83 18 97/62 97 11/17/16 16:32 97.3 F L 80 18 104/70 97 11/17/16 15:39 98.1 F 11/17/16 15:20 36.0 F L 80 16 93/55 95 11/17/16 14:12 79 15 93/55 94 L Intake and Output 11/17/16 11/18/16 11/18/16 22:59 06:59 14:59 Intake Total 167.084 251.032 471.884 Output Total 575 1630 Balance 167.084 -323.968 -1158.116 Intake: IV 60 120 .9 KVO 60 120 Intake, IV Titration 167.084 191.032 351.884 Amount Furosemide 250 mg In 10 Sodium Chloride 0.9% 225 ml @ 10 MG/HR 10 mls/hr IVP .Q24H CAROLYN Rx#: [id number] Heparin Sodium,Porcine/ 167.084 191.032 141.884 D5w Pmx 25,000 unit In Dextrose/Water 1 500ml. bag @ 9.39 UNITS/KG/HR 20 .01 mls/hr IV .Q24H [facility]OLYN Rx#:[id number] Magnesium Sulfate-D5w Pmx 100 1 gm In Dextrose/Water 1 100ml.bag @ 100 mls/hr IVPB Q1H [facility] Rx#: [id number] Potassium Chloride 10 meq 100 Lidocaine 2% Inj 10 mg In Sodium Chloride 0.9% 100 ml @ 100 mls/hr IV Q1HR CAROLYN Rx#:[id number] Output: Urine 575 1630 Other: Voiding Method Urinal Urinal # Voids 1 1 # Bowel Movements 1 1 Weight 110.2 kg Physical Exam: Revealed an 85-year-old white male on BiPAP, seems to be comfortable on BiPAP, but he was short of breath earlier on nasal cannula. HEENT:[Neck is supple.] [No neck masses.] [No thyromegaly.] [No JVD.] Chest: [Crackles and rhonchi at the bases bilaterally.] Cardiac Exam: [Normal S1 and S2, positive S3 gallop, 2/6 systolic murmur throughout the precordium] Abdomen: [Soft, nontender, no megaly, no rebound, no guarding, normal bowel sounds.] Extremities: [No clubbing, 1+ bipedal edema, no cyanosis.] Neurological Exam: [No focal neurologic deficit.] Results - Laboratory Findings CBC and BMP: 11/18/16 04:08 11/18/16 04:08 PT/INR, D-dimer PT 12.4 sec (9.0-12.0) H 11/17/16 10:47 INR 1.3 (<1.1) 11/17/16 10:47 D-Dimer 0.57 mg/L FEU (<0.60) 11/17/16 10:47 Abnormal lab findings: Abnormal Labs 11/17/16 11/17/16 11/17/16 18:24 19:34 22:31 WBC RBC MCV Neutrophils # Lymphocytes # APTT 37.8 H Sodium Chloride BUN Glucose POC Glucose (mg/dL) Total Bilirubin AST Total Creatine Kinase 626 H 588 H CK-MB (CK-2) 47.8 H* 43.9 H* Troponin I 16.500 H* 11.000 H* HDL Cholesterol Urine Blood Urine Bacteria Hyaline Casts 11/18/16 11/18/16 11/18/16 01:34 03:38 04:08 WBC RBC MCV Neutrophils # Lymphocytes # APTT Sodium 131 L Chloride 96 L BUN 27 H Glucose 175 H POC Glucose (mg/dL) 200 H 167 H Total Bilirubin 1.9 H AST 90 H Total Creatine Kinase CK-MB (CK-2) Troponin I HDL Cholesterol 81 H Urine Blood Urine Bacteria Hyaline Casts 11/18/16 11/18/16 11/18/16 04:08 04:08 09:50 WBC 12.0 H RBC 3.97 L MCV 100.9 H Neutrophils # 11.0 H Lymphocytes # 0.3 L APTT 43.3 H 42.6 H Sodium Chloride BUN Glucose POC Glucose (mg/dL) Total Bilirubin AST Total Creatine Kinase CK-MB (CK-2) Troponin I HDL Cholesterol Urine Blood Urine Bacteria Hyaline Casts 11/18/16 10:50 WBC RBC MCV Neutrophils # Lymphocytes # APTT Sodium Chloride BUN Glucose POC Glucose (mg/dL) Total Bilirubin AST Total Creatine Kinase CK-MB (CK-2) Troponin I HDL Cholesterol Urine Blood Small H Urine Bacteria Rare H Hyaline Casts 5 H - Diagnostic Findings Chest x-ray: image reviewed (Chest x-ray is consistent with pulmonary edema) Assessment and Plan Plan: Impression: 1 acute hypoxic respiratory failure secondary to pulmonary edema secondary to systolic LV dysfunction secondary to ischemic cardiomyopathy and coronary artery disease. 2 acute non-ST elevation myocardial infarction 3 history of underlying coronary artery disease and previous CABG 4 multiple comorbidities including hypertension, Parkinson's disease, hyperlipidemia, chronic atrial fibrillation, history of osteomyelitis of the right foot, history of legionnaires disease in the past. Recommendation: Continue present treatment plan, I will go ahead and switch the patient to Lasix drip at 10 mg per hour, continue to monitor closely his electrolytes and renal profile. Family expressed wishes to possibly consider that transferring the patient to his public relations consultant in [place], I suggested that they discussthis with the public relations consultant on the case and with the admitting physician. In the meantime the patient will remain on BiPAP, and will remain on Lasix drip at 10 mg per hour. Time with Patient: Greater than 30
[2016-11-18] MEDS ORDERED: LEVOFLOXACIN 750MG-D5W PMX 750 MG in DEXTROSE/WATER 1 150ML.BAG IVPB SCH (13:00)
--- NOTE | 2016-11-18 13:31 | PN ---
Ike is an 85-year-old gentleman with extensive cardiac history including coronary artery disease, status post CABG, status post multiple angioplasties, cardiomyopathy, questionable history of congestive heart failure, dyslipidemia and hypertension who presented to [facility] with symptoms of not feeling well, fatigue, cough, fever, and questionable hemoptysis. On his initial presentation, he also had ST-T wave changes suggestive of subendocardial ischemia and elevated troponin. He was treated with intravenous antibiotics, IV heparin, IV Lasix, nitrates, beta blockers, and YAIMA inhibitors. While on the telemetry unit, he became more and more short of breath went into pulmonary edema, had to be transferred to ICU, where he is on a BiPAP machine oxygenating better and he is currently on IV Lasix drip with significant improvement in his symptoms. The patient is being transferred to his primary cashier tube room Dr. Jones at [place] as per family's wishes. On exam, heart rate is 90 beats per minute, blood pressure 110/70, respiratory rate 24. Chest exam reveals occasional rhonchi and crackles bilaterally. Heart exam reveals first and second heart sounds. No gallop. Has a systolic murmur at the left lower sternal border. Abdomen is soft. Exam of extremities reveals 1+ edema. Peripheral pulses are felt. Labs show a hemoglobin of 13.1. Creatinine is 0.7. Potassium is 3.7. BUN is 27. EKG shows sinus tachycardia with ST-T wave changes of subendocardial ischemia. An echocardiogram showed severe LV systolic dysfunction with an ejection fraction of 25% to 30%, severe pulmonary hypertension, mild mitral and mild to moderate tricuspid regurgitation. ASSESSMENT: 1. Non-ST segment elevation myocardial infarction. 2. Acute pulmonary edema with acute onset systolic heart failure. 3. Coronary artery disease, status post coronary artery bypass grafting. 4. Respiratory failure. PLAN: The patient is on optimal medical therapy at the moment. I may cut back on the dose of YAIMA inhibitor and increase the dose of beta irene because of tachycardia. Continue the Lasix drip. I had a long discussion with the patient and family. Patient will be transferred out as soon as a bed is available.
[2016-11-18] MEDS ORDERED: METOPROLOL SUCCINATE (ER) 25 MG TAB.ER.24H PO ONE (20:00)
[2016-11-18] MEDS ORDERED: POTASSIUM CHLORIDE ER 20 MEQ TAB.ER PO SCH (20:00)
[2016-11-19] MEDS: NITROGLYCERIN OINT 1 INCH/GM PACKET TOPICAL SCH ×3 (00:14→07:04)
[2016-11-19 04:44] LABS: Basophils % (A) 0 %; CH 33.4; CHCM 33.3; Eosinophils % (A) 0 %; HCT 35.1 % (39.0-53.0); HDW 2.42; HGB 11.6 gm/dL (13.0-17.5); Luc # (Auto) 0.19; Luc % (Auto) 2; Lymphocytes # (A) 0.5 k/uL (1.0-4.8); Lymphocytes % (A) 6 %; MCH 33.2 pg (25.0-35.0); MCHC 33.1 g/dL (31.0-37.0); MCV 100.6 fL (80.0-100.0); Macrocytosis Slight; Mean Platelet Volume 6.9; Monocytes # (A) 0.6 k/uL (0-1.0); Monocytes % (A) 6 %; Neutrophils # (A) 8.5 k/uL (1.3-7.7); Neutrophils % (A) 86 %; RBC 3.49 m/uL (4.30-5.90); RDW 15.1 % (11.5-15.5); WBC 9.9 k/uL (3.8-10.6)
[2016-11-19 05:00] LABS: ALT 22 U/L (21-72); AST 74 U/L (17-59); Alkaline Phosphatase 53 U/L (38-126); Anion Gap 8 mmol/L; Blood Urea Nitrogen 29 mg/dL (9-20); Calcium 8.2 mg/dL (8.4-10.2); Carbon Dioxide 28 mmol/L (22-30); Chloride 95 mmol/L (98-107); Glucose 119 mg/dL (74-99); Magnesium 1.9 mg/dL (1.6-2.3); Non-African American GFR(MDRD) >60 (>60 ml/min/1.73 sqM); Phosphorous 3.4 mg/dL (2.5-4.5); Potassium 3.3 mmol/L (3.5-5.1); Sodium 131 mmol/L (137-145); Total Bilirubin 1.5 mg/dL (0.2-1.3); Total Protein 5.4 g/dL (6.3-8.2)
[2016-11-19] MEDS: POTASSIUM CHLORIDE ORAL LIQUID 40 MEQ/30 ML CUP NG-TUBE SCH ×2 (07:04→09:04)
[2016-11-19] MEDS: MAGNESIUM SULFATE-D5W PMX 1 GM in DEXTROSE/WATER 1 100ML.BAG IVPB SCH ×2 (07:05→08:13)
[2016-11-19] MEDS: HEPARIN SODIUM,PORCINE/D5W PMX 25,000 UNIT in DEXTROSE/WATER 1 500ML.BAG IV SCH (08:09)
[2016-11-19] MEDS ORDERED: METOPROLOL SUCCINATE (ER) 50 MG TAB.ER.24H PO SCH (09:00)
[2016-11-19] MEDS: PANTOPRAZOLE 40 MG/10 ML VIAL IV SCH (09:00)
[2016-11-19] MEDS: ATORVASTATIN 40 MG TAB PO SCH (09:01)
[2016-11-19] MEDS: CARBIDOPA-LEVODOPA 25-100 MG 1 EACH TAB PO SCH (09:01)
[2016-11-19] MEDS: ASPIRIN 81 MG CHEW PO SCH (09:01)
[2016-11-19] MEDS: CLOPIDOGREL 75 MG TAB PO SCH (09:02)
[2016-11-19] MEDS: LISINOPRIL 10 MG TAB PO SCH ×2 (09:03→10:02)
[2016-11-19] MEDS: CYANOCOBALAMIN 500 MCG TAB PO SCH (09:03)
[2016-11-19] MEDS: HYDROCHLOROTHIAZIDE 25 MG TAB PO SCH ×2 (09:04→10:01)
[2016-11-19] MEDS: ISOSORBIDE MONONITRATE ER 60 MG TAB.ER.24H PO SCH (09:10)
--- NOTE | 2016-11-19 09:45 | XR ---
EXAMINATION TYPE: XR chest 1V DATE OF EXAM: 11/19/2016 6:54 AM COMPARISON: Prior chest x-ray October HISTORY: Shortness of breath, congestive heart failure TECHNIQUE: Single frontal view of the chest is obtained. FINDINGS: There is some improvement in aeration in the upper lobes. No other significant interval ch julio. IMPRESSION: Improvement in volume status and aeration.
[2016-11-19 10:29] VITALS: BP 103/70; PULSE 85; RESP 20; TEMP 98.3
--- NOTE | 2016-11-19 13:14 | P.PN ---
Subjective Principal diagnosis: acute pulmonary edema This is an 85-year-old white male with history of severe coronary artery disease and previous CABG, history of LV dysfunction, ejection fraction on this echocardiogram is below 25%. Patient is also known to have history of hypertension, dyslipidemia, multiple angioplasties in the past done in [place], patient presented to the ER with multiple complaints including fatigue tiredness cough questionable blood-tinged sputum, EKG on presentation showed ST and T wave changes related to possible subendocardial ischemia. His troponin was elevated as high as 5.4, hence it was felt strongly that the patient had an acute non-ST segment elevation myocardial infarction. He was also noted to have elevated BNP level over 5700. Chest x-ray showed evidence of congestive heart failure/pulmonary edema. Patient was initially admitted to [facility], but later he was transferred to the intensive care unit, placed on BiPAP because of worsening shortness of breath, and I was asked to see him on consultation. Patient seems to be doing better with BiPAP, he already received 3 doses of Lasix, and I will go ahead and placed on a Lasix drip. After reviewing the chest x-ray, I felt that this is clearly a picture of severe pulmonary edema, congestive heart failure secondary to LV dysfunction. Presently the patient denies any headaches no blurred vision no dizziness, no chest pain, no nausea, no vomiting, no abdominal pain, no melena, and no hematemesis. Patient was reevaluated today on 11/19/2016, seems to be doing relatively well, responded well to the Lasix drip and he remains on 5 mg of Lasix per hour. Chest x-ray is significantly improved, but continues to have some component of interstitial edema. Clinically the patient is now on nasal cannula, in no distress, denies any chest pain, and his shortness of breath is significantly improved over the last 24 hours since he responded well to the Lasix infusion. labs were reviewed, WBC is 9.9 hemoglobin is 11.6. Potassium is 3.3 BUN is 29 creatinine is 0.70 Objective - Vital Signs Vital signs: Vital Signs Temp 98.3 F 11/19/16 08:00 Pulse 85 11/19/16 10:00 Resp 20 11/19/16 10:00 BP 103/70 11/19/16 10:00 Pulse Ox 96 11/19/16 10:00 Intake & Output 11/18/16 11/19/16 11/19/16 18:59 06:59 18:59 Intake Total 714.551 189 580 Output Total 2610 1095 360 Balance -1895.449 -906 220 Weight 106 kg 103 kg Intake: IV 240 189 80 .9 KVO 240 189 80 Intake, IV Titration 474.551 500 Amount Furosemide 250 mg In 132.667 Sodium Chloride 0.9% 225 ml @ 5 MG/HR 5 mls/hr IVP .Q24H [facility] Rx#:[id number] Heparin Sodium,Porcine/ 141.884 500 D5w Pmx 25,000 unit In Dextrose/Water 1 500ml. bag @ 9.39 UNITS/KG/HR 20 .01 mls/hr IV .Q24H [facility] Rx#:[id number] Magnesium Sulfate-D5w Pmx 100 1 gm In Dextrose/Water 1 100ml.bag @ 100 mls/hr IVPB Q1H [facility] Rx#: [id number] Potassium Chloride 10 meq 100 Lidocaine 2% Inj 10 mg In Sodium Chloride 0.9% 100 ml @ 100 mls/hr IV Q1HR [facility] Rx#:[id number] Output: Urine 2610 1095 360 Other: Voiding Method Urinal Indwelling Catheter Indwelling Catheter # Voids 1 # Bowel Movements 1 - Exam Physical Exam: Revealed 85-year-old white male in no distress HEENT:[Neck is supple.] [No neck masses.] [No thyromegaly.] [No JVD.] Chest: [lminimal crackles at the bases,] Cardiac Exam: [Normal S1 and S2, no S3 gallop, no murmur.] Abdomen: [Soft, nontender, no megaly, no rebound, no guarding, normal bowel sounds.] Extremities: [No clubbing, no edema, no cyanosis.] Neurological Exam: [No focal neurologic deficit.] - Labs CBC & Chem 7: 11/19/16 04:13 11/19/16 04:13 Labs: Abnormal Lab Results - Last 24 Hours (Table) 11/18/16 11/19/16 11/19/16 Range/Units 17:26 04:13 04:13 RBC 3.49 L (4.30-5.90) m/uL Hgb 11.6 L (13.0-17.5) gm/dL Hct 35.1 L (39.0-53.0) % MCV 100.6 H (80.0-100.0) fL Neutrophils # 8.5 H (1.3-7.7) k/uL Lymphocytes # 0.5 L (1.0-4.8) k/uL APTT 53.7 H (22.0-30.0) sec Sodium 131 L (137-145) mmol/L Potassium 3.3 L (3.5-5.1) mmol/L Chloride 95 L (98-107) mmol/L BUN 29 H (9-20) mg/dL Glucose 119 H (74-99) mg/dL Calcium 8.2 L (8.4-10.2) mg/dL Total Bilirubin 1.5 H (0.2-1.3) mg/dL AST 74 H (17-59) U/L Total Protein 5.4 L (6.3-8.2) g/dL Albumin 2.9 L (3.5-5.0) g/dL 11/19/16 Range/Units 07:21 RBC (4.30-5.90) m/uL Hgb (13.0-17.5) gm/dL Hct (39.0-53.0) % MCV (80.0-100.0) fL Neutrophils # (1.3-7.7) k/uL Lymphocytes # (1.0-4.8) k/uL APTT 47.7 H (22.0-30.0) sec Sodium (137-145) mmol/L Potassium (3.5-5.1) mmol/L Chloride (98-107) mmol/L BUN (9-20) mg/dL Glucose (74-99) mg/dL Calcium (8.4-10.2) mg/dL Total Bilirubin (0.2-1.3) mg/dL AST (17-59) U/L Total Protein (6.3-8.2) g/dL Albumin (3.5-5.0) g/dL Assessment and Plan Plan: Impression: 1 acute hypoxic respiratory failure secondary to pulmonary edema secondary to systolic LV dysfunction secondary to ischemic cardiomyopathy and coronary artery disease. 2 acute non-ST elevation myocardial infarction 3 history of underlying coronary artery disease and previous CABG 4 multiple comorbidities including hypertension, Parkinson's disease, hyperlipidemia, chronic atrial fibrillation, history of osteomyelitis of the right foot, history of legionnaires disease in the past. Recommendation: Continue present treatment plan, continue Lasix at 5 mg per hour , patient will likely be transferred today to his chief school finance officer in [place]. Transfer plans are in progress. Time with Patient: Less than 30
--- NOTE | 2016-11-19 16:40 | DS ---
DATE OF ADMISSION: 11/17/2016 DATE OF DISCHARGE: 11/19/2016 ADDENDUM: This 85-year-old gentleman who was admitted with acute non-ST elevation medications also had acute respiratory failure, CHF acute exacerbation and pulmonary edema. The patient will be transferred to [facility] for cardiology evaluation and continued treatment. Please refer to my previous dictation for list of diagnoses and as well as list of medications. Total time taken 35 minutes. Currently on exam, vitals are stable. CARDIOVASCULAR SYSTEM: S1, S2 muffled. ABDOMEN: Soft. NERVOUS SYSTEM: No focal deficits. For current medications please refer to the current list.
--- NOTE | 2016-11-19 20:48 | PN ---
DATE OF SERVICE: 11/19/2016 This 85-year-old gentleman admitted with acute non-ST elevation myocardial infarction, secondary to acute CHF acute exacerbation as well as acute hypoxic respiratory failure, patient on BiPAP. The patient being closely monitored by multiple consultants. There also has a excelsior cutter in [place]. A 2-D echo with Doppler was done by cardiology showed ejection fraction about 25 to 30%. Past medical history reviewed. REVIEW OF SYSTEMS: CARDIOVASCULAR: No angina or palpitations. RESPIRATORY: As mentioned earlier. GASTROINTESTINAL: As mentioned earlier. GENITOURINARY: No dysuria. Nervous system: No numbness or weakness. The current medications are: 1. [place] 5 mg. 2. Aspirin 81 mg. 3. Lipitor 40 mg. 5. Plavix 75 mg daily. 6. Vitamin B12. 7. Insulin drip. 8. Heparin. 9. Imdur. 10. Levaquin 750 daily. 11. Zestril 20 mg p.o. daily. 12. Toprol 25 mg and 50 mg. PHYSICAL EXAMINATION: Patient is alert oriented times two. Pulse 88. Blood pressure 88/58, respiratory rate 19. Temperature normal. Pulse ox 99% on 6 L. HEENT: Conjunctivae normal. NECK: No jugular venous distention. CARDIOVASCULAR: S1, S2 muffled. RESPIRATORY: Breath sounds diminished at the bases. A few scattered rhonchi and crackles. ABDOMEN: Soft, nontender. No mass palpable. Legs: No edema, no swelling. Nervous system: No focal deficits. LABS: WBC 12. Hemoglobin 13.1, Sodium 131. ASSESSMENT: 1. Acute non-ST segment elevation myocardial infarction with acute pulmonary edema as well as congestive heart failure acute exacerbation, with acute hypoxic respiratory failure on BiPAP. 2. Troponin 16.500. 3. Increased WBC, possibly reactive. 4. Increased MCV. 5. Hyponatremia. 6. Obesity; body mass index of 30.2. 7. Hyperbilirubinemia. 8. Increased AST. 9. History of hypertension. 10. Hyperlipidemia. 11. History of myocardial infarction. 12. History of Parkinson's. 13. History of degenerative joint disease. 14. History of right foot osteoarthritis. 15. Coronary artery disease, coronary artery bypass grafting. 16. FULL CODE. RECOMMENDATIONS AND DISCUSSION: Recommend to continue current medications, continue with symptomatic, continue with monitoring, continue diuretics, monitor fluid and electrolytes closely. Prognosis guarded. Also discussed with cardiology. Follow closely with Dr. Carranza. Ensure oxygenation. Continue with BiPAP and possible transfer to [facility] for further evaluation and treatment. Prognosis guarded. Further recommendations to follow. MTDD
== END 2016-11-19 11:13 | disposition short-term general hospital (02) | DRG 280 ==
LOC: EC 10:33 → 6SEL 14:10 → 6ICU 11-18 02:56
PROVIDERS: ADMIT Hospitalist; ATTEND Hospitalist
DX: I21.4 Non-ST elevation (NSTEMI) myocardial infarction (principal); J96.01 Acute respiratory failure with hypoxia; I50.23 Acute on chronic systolic (congestive) heart failure; E87.1 Hypo-osmolality and hyponatremia; R04.2 Hemoptysis; I50.1 Left ventricular failure, unspecified; G20 Parkinson's disease; Z95.1 Presence of aortocoronary bypass graft; I25.10 Atherosclerotic heart disease of native coronary artery without angina pectoris; R53.1 Weakness; I08.1 Rheumatic disorders of both mitral and tricuspid valves; E80.6 Other disorders of bilirubin metabolism; R74.8 Abnormal levels of other serum enzymes; I11.0 Hypertensive heart disease with heart failure; I27.2 Other secondary pulmonary hypertension; I25.5 Ischemic cardiomyopathy; I48.2 Chronic atrial fibrillation; M19.071 Primary osteoarthritis, right ankle and foot; I25.2 Old myocardial infarction; E66.9 Obesity, unspecified; E78.5 Hyperlipidemia, unspecified; R50.9 Fever, unspecified; K59.00 Constipation, unspecified; D72.829 Elevated white blood cell count, unspecified; H91.90 Unspecified hearing loss, unspecified ear; Z79.82 Long term (current) use of aspirin; Z68.30 Body mass index [BMI] 30.0-30.9, adult; Z79.899 Other long term (current) drug therapy; Z79.02 Long term (current) use of antithrombotics/antiplatelets; Z82.49 Family history of ischemic heart disease and other diseases of the circulatory system; Z85.828 Personal history of other malignant neoplasm of skin; Z83.3 Family history of diabetes mellitus; Z86.19 Personal history of other infectious and parasitic diseases; Z87.01 Personal history of pneumonia (recurrent); Z86.14 Personal history of Methicillin resistant Staphylococcus aureus infection; Z79.891 Long term (current) use of opiate analgesic; Z88.2 Allergy status to sulfonamides; Z95.5 Presence of coronary angioplasty implant and graft; Z98.49 Cataract extraction status, unspecified eye; Z16.24 Resistance to multiple antibiotics; Z83.79 Family history of other diseases of the digestive system; Z80.9 Family history of malignant neoplasm, unspecified
CPT/HCPCS: 36415; 71010; 71020; 80053; 80061; 81001; 82550; 82553; 83605; 83735; 83880; 84100; 84132; 84484; 85025; 85379; 85610; 85730; 87040; 87502; 93005; 93306; 94660; 96361; 96365; 96366; 96367; 96368; 96375; 96376; 99291

== ENCOUNTER → 2016-12-25 | Outpatient (CLI) | payer MEDICARE, BC ==
[2016-12-25 10:06] LABS: Basophils % (A) 1 %; CH 33.3; CHCM 33.6; Eosinophils # (A) 0.3 k/uL (0-0.7); Eosinophils % (A) 4 %; HCT 34.3 % (39.0-53.0); HDW 2.51; HGB 11.6 gm/dL (13.0-17.5); Luc # (Auto) 0.15; Luc % (Auto) 2; Lymphocytes # (A) 0.8 k/uL (1.0-4.8); Lymphocytes % (A) 11 %; MCH 33.5 pg (25.0-35.0); MCHC 33.8 g/dL (31.0-37.0); MCV 99.2 fL (80.0-100.0); Mean Platelet Volume 6.9; Monocytes # (A) 0.6 k/uL (0-1.0); Monocytes % (A) 8 %; Neutrophils # (A) 5.4 k/uL (1.3-7.7); Neutrophils % (A) 74 %; RBC 3.46 m/uL (4.30-5.90); RDW 14.2 % (11.5-15.5); WBC 7.2 k/uL (3.8-10.6); WBC (Perox) 7.66
[2016-12-25 10:32] LABS: ALT 59 U/L (21-72); AST 32 U/L (17-59); Alkaline Phosphatase 88 U/L (38-126); Anion Gap 8 mmol/L; Blood Urea Nitrogen 17 mg/dL (9-20); Calcium 9.4 mg/dL (8.4-10.2); Carbon Dioxide 32 mmol/L (22-30); Chloride 95 mmol/L (98-107); Cholesterol 95 mg/dL (<200); Glucose 98 mg/dL (74-99); HDL Cholesterol 54 mg/dL (40-60); Non-African American GFR(MDRD) >60 (>60 ml/min/1.73 sqM); Potassium 4.5 mmol/L (3.5-5.1); Sodium 135 mmol/L (137-145); Total Bilirubin 1.1 mg/dL (0.2-1.3); Triglycerides 66 mg/dL (<150)
== END | disposition home or self-care (01) ==
LOC: LABWHC1 09:40
PROVIDERS: ATTEND Internal Medicine Cardiovascular Disease
DX: E78.2 Mixed hyperlipidemia (principal); R53.82 Chronic fatigue, unspecified
CPT/HCPCS: 36415; 80053; 80061; 84443; 85025

== ENCOUNTER → 2017-04-21 | Outpatient (CLI) | payer MEDICARE, BC ==
--- NOTE | 2017-04-21 14:27 | MR ---
MR brain without contrast HISTORY: R 26.9, gait difficulties Correlation to CT brain 11/30/2016 Multiplanar multisequence imaging through the brain There is no restricted diffusion. Cortical atrophy is present. Corpus callosum, pituitary, cervical m edullary junction, cerebellopontine angles are within normal limits. There are normal vascular flow v oids. Periventricular confluent and scattered hyperintensities are present within the periventricular , pericallosal, subcortical white matter. There is no hemorrhage or hydrocephalus. Mucosal thickening present within the maxillary sinuses. IMPRESSION: Age-related changes of atrophy and probable chronic small vessel ischemia.
== END | disposition home or self-care (01) ==
LOC: RADMRIMAIN 12:44
PROVIDERS: ATTEND Psychiatry & Neurology Neurology
DX: G31.1 Senile degeneration of brain, not elsewhere classified (principal); E53.8 Deficiency of other specified B group vitamins; G62.9 Polyneuropathy, unspecified
CPT/HCPCS: 70551; 82306; 82607; 84439; 84443

== ENCOUNTER 2017-05-06 08:45 | Day surgery (SDC) | payer MEDICARE, BC ==
[2017-05-06] MEDS ORDERED: cefTRIAXone 2,000 MG in SODIUM CHLORIDE 0.9% 100 ML IVPB ONE (09:00)
[2017-05-06 09:09] VITALS: RESP 16; TEMP 98
[2017-05-06] MEDS ORDERED: LIDOCAINE 2% INJ 20 MG/ML SQ ONE (09:23)
[2017-05-06 11:15] VITALS: BP 126/67; PULSE 68
--- NOTE | 2017-05-06 12:00 | IR ---
PICC LINE PLACEMENT: HISTORY: Infection requiring long-term antibiotic therapy PROCEDURE: Ultrasound and fluoroscopic guidance of PICC line placement. COMPLICATIONS: None ANESTHESIA: 1. 1% Lidocaine locally. FINDINGS/TECHNIQUE: The procedure was explained to the patient. The risks, complications, benefits and alternatives were discussed and any questions were answered. Informed consent was obtained. The patient was placed supine on the fluoroscopic table and prepped and draped in the usual sterile fash ion. Utilizing a 21 gauge needle and sonographic and fluoroscopic guidance, access in the left basi lic vein was achieved and there is placement of a 0.018 guidewire. The vein is patent. A 4-F sheath was placed over the guidewire. The guidewire and dilator were removed and a 4-F. PICC line was plac ed through the sheath with the tip at the level of the SVC. The sheath was removed, the catheter was flushed and sutured into position. The patient was stable throughout the procedure and remained sta ble upon discharge from the Department of Radiology. The vein puncture was patent under ultrasound. A booker scale image was obtained to document patency of the vein punctured. All elements of the maximal barrier technique were utilized. FLUOROSCOPY TIME: 0.5, one image provided IMPRESSION: Successful PICC line placement under ultrasound and fluoroscopic guidance.
== END 2017-05-06 11:15 | disposition home health service (06) ==
LOC: CATHCVL 08:45
PROVIDERS: ATTEND Radiology Diagnostic Radiology
DX: Z45.2 Encounter for adjustment and management of vascular access device (principal); M86.8X7 Other osteomyelitis, ankle and foot; I11.0 Hypertensive heart disease with heart failure; I50.9 Heart failure, unspecified; Z79.899 Other long term (current) drug therapy; E78.00 Pure hypercholesterolemia, unspecified; Z88.2 Allergy status to sulfonamides; Z82.49 Family history of ischemic heart disease and other diseases of the circulatory system
CPT/HCPCS: 36569; 76937; 77001; C1751; C1769; J2001; J0696

== ENCOUNTER → 2017-07-06 | Outpatient (CLI) | payer MEDICARE, BC ==
[2017-07-06 14:56] LABS: Basophils % (A) 1 %; CHCM 32.5; Eosinophils # (A) 0.1 k/uL (0-0.7); Eosinophils % (A) 2 %; HCT 35.5 % (39.0-53.0); HDW 2.47; HGB 11.6 gm/dL (13.0-17.5); Luc # (Auto) 0.09; Luc % (Auto) 2; Lymphocytes # (A) 0.6 k/uL (1.0-4.8); Lymphocytes % (A) 11 %; MCH 34.5 pg (25.0-35.0); MCHC 32.8 g/dL (31.0-37.0); MCV 105.4 fL (80.0-100.0); Macrocytosis Moderate; Mean Platelet Volume 6.8; Monocytes # (A) 0.5 k/uL (0-1.0); Monocytes % (A) 9 %; Neutrophils # (A) 4.2 k/uL (1.3-7.7); Neutrophils % (A) 76 %; RBC 3.37 m/uL (4.30-5.90); RDW 14.1 % (11.5-15.5); WBC 5.6 k/uL (3.8-10.6); WBC (Perox) 6.22
[2017-07-06 15:14] LABS: ALT 33 U/L (21-72); AST 24 U/L (17-59); Alkaline Phosphatase 72 U/L (38-126); Anion Gap 10 mmol/L; Blood Urea Nitrogen 12 mg/dL (9-20); Calcium 9.6 mg/dL (8.4-10.2); Carbon Dioxide 31 mmol/L (22-30); Chloride 93 mmol/L (98-107); Cholesterol 104 mg/dL (<200); Glucose 87 mg/dL (74-99); HDL Cholesterol 62 mg/dL (40-60); Non-African American GFR(MDRD) >60 (>60 ml/min/1.73 sqM); Potassium 4.6 mmol/L (3.5-5.1); Sodium 134 mmol/L (137-145); Total Bilirubin 1.6 mg/dL (0.2-1.3); Total Protein 6.8 g/dL (6.3-8.2)
== END | disposition home or self-care (01) ==
LOC: LABWHC1 13:39
PROVIDERS: ATTEND Internal Medicine Cardiovascular Disease
DX: E78.2 Mixed hyperlipidemia (principal); R53.82 Chronic fatigue, unspecified
CPT/HCPCS: 36415; 80053; 80061; 84443; 85025

== ENCOUNTER → 2017-10-11 | Outpatient (CLI) | payer MEDICARE, BC ==
[2017-10-11 16:26] LABS: Basophils % (A) 1 %; Eosinophils # (A) 0.2 k/uL (0-0.7); Eosinophils % (A) 4 %; HCT 35.7 % (39.0-53.0); HGB 11.6 gm/dL (13.0-17.5); Lymphocytes # (A) 0.9 k/uL (1.0-4.8); Lymphocytes % (A) 17 %; MCH 34.2 pg (25.0-35.0); MCHC 32.6 g/dL (31.0-37.0); MCV 104.8 fL (80.0-100.0); Macrocytosis Slight; Mean Platelet Volume 6.9; Monocytes # (A) 0.5 k/uL (0-1.0); Monocytes % (A) 9 %; Neutrophils # (A) 3.7 k/uL (1.3-7.7); Neutrophils % (A) 67 %; Platelet Count 233 k/uL (150-450); RBC 3.41 m/uL (4.30-5.90); RDW 12.8 % (11.5-15.5); WBC 5.5 k/uL (3.8-10.6)
[2017-10-11 16:33] LABS: Anion Gap 11 mmol/L; Blood Urea Nitrogen 15 mg/dL (9-20); Calcium 9.3 mg/dL (8.4-10.2); Carbon Dioxide 32 mmol/L (22-30); Chloride 95 mmol/L (98-107); Glucose 100 mg/dL (74-99); Potassium 4.7 mmol/L (3.5-5.1); Sodium 138 mmol/L (137-145)
[2017-10-11 16:57] LABS: PSA Annual Screen 2.31 ng/mL (0.00-4.00)
== END | disposition home or self-care (01) ==
LOC: LABWHC1 15:09
PROVIDERS: ATTEND Family Medicine
DX: E61.1 Iron deficiency (principal); I10 Essential (primary) hypertension; Z12.5 Encounter for screening for malignant neoplasm of prostate
CPT/HCPCS: 80048; 82607; 85025; 36415; G0103

== ENCOUNTER → 2018-01-03 | Outpatient (CLI) | payer MEDICARE, BC ==
[2018-01-03 10:43] LABS: ALT 21 U/L (21-72); AST 21 U/L (17-59); Alkaline Phosphatase 77 U/L (38-126); Anion Gap 11 mmol/L; Blood Urea Nitrogen 15 mg/dL (9-20); Calcium 9.2 mg/dL (8.4-10.2); Carbon Dioxide 29 mmol/L (22-30); Chloride 97 mmol/L (98-107); Cholesterol 108 mg/dL (<200); Glucose 102 mg/dL (74-99); HDL Cholesterol 62 mg/dL (40-60); LDL Cholesterol,Calculated 37 mg/dL (0-99); Potassium 4.8 mmol/L (3.5-5.1); Sodium 137 mmol/L (137-145); Total Bilirubin 0.9 mg/dL (0.2-1.3); Total Protein 6.2 g/dL (6.3-8.2); Triglycerides 46 mg/dL (<150)
[2018-01-03 10:48] LABS: Basophils % (A) 0 %; Eosinophils # (A) 0.2 k/uL (0-0.7); Eosinophils % (A) 3 %; HCT 33.6 % (39.0-53.0); HGB 11.1 gm/dL (13.0-17.5); Lymphocytes # (A) 0.9 k/uL (1.0-4.8); Lymphocytes % (A) 14 %; MCH 33.9 pg (25.0-35.0); MCV 102.4 fL (80.0-100.0); Macrocytosis Slight; Mean Platelet Volume 7.1; Monocytes # (A) 0.6 k/uL (0-1.0); Monocytes % (A) 9 %; Neutrophils # (A) 4.5 k/uL (1.3-7.7); Neutrophils % (A) 72 %; Platelet Count 186 k/uL (150-450); RBC 3.28 m/uL (4.30-5.90); RDW 12.8 % (11.5-15.5); WBC 6.2 k/uL (3.8-10.6)
== END | disposition home or self-care (01) ==
LOC: LABWHC1 09:45
PROVIDERS: ATTEND Internal Medicine Cardiovascular Disease
DX: E78.2 Mixed hyperlipidemia (principal); R53.82 Chronic fatigue, unspecified
CPT/HCPCS: 36415; 80053; 80061; 84443; 85025

== ENCOUNTER 2018-02-13 11:16 | Emergency (ER) | payer MEDICARE, BC ==
--- NOTE | 2018-02-13 12:27 | ED ---
General Adult HPI - General Chief complaint: Skin/Abscess/Foreign Body Stated complaint: RASH ALL OVER, POSS SHINGLES Time Seen by Provider: 02/13/18 11:41 Source: patient, RN notes reviewed Mode of arrival: wheelchair Limitations: no limitations - History of Present Illness Initial comments: Patient 87-year-old male presented to the emergency room today with a chief complaint of a rash times one month. He does admit that it started to his back. Patient states that it is now spread to the arms. He has seen his premium card cancellation clerk. He was given a few shots of steroids. States this only helped temporarily. Patient states that he's been using Benadryl the last few days has had no relief. Patient states very itchy. Denies any other complaints or symptoms. Denies any contacts. Denies any medications. Patient denies any recent fever, chills, shortness of breath, chest pain, back pain, abdominal pain , nausea or vomiting, numbness or tingling, headaches or visual changes, or any other complaints. - Related Data Home Medications Medication Instructions Recorded Confirmed Apixaban [Eliquis] 5 mg PO Q12H 11/30/16 05/06/17 Carbidopa-Levodopa 25-100 mg 1 tab PO BID 11/30/16 05/06/17 [Sinemet 25-100 mg] Carvedilol [Coreg] 6.25 mg PO BID 11/30/16 05/06/17 Clopidogrel [Plavix] 75 mg PO DAILY 11/30/16 05/06/17 Digoxin [Lanoxin] 250 mcg PO DAILY 11/30/16 05/06/17 Furosemide [Lasix] 40 mg PO BID 11/30/16 05/06/17 Isosorbide Mononitrate ER [Imdur] 60 mg PO DAILY 11/30/16 05/06/17 L.acidoph,Paracasei, B.lactis 1 cap PO DAILY 11/30/16 05/06/17 [Probiotic] Lactose-Reduced Food [Boost] 237 ml PO TID-W/MEALS 11/30/16 05/06/17 Lisinopril [Zestril] 2.5 mg PO DAILY 11/30/16 05/06/17 Potassium Chloride ER [K-Dur 20] 20 meq PO BID 11/30/16 05/06/17 Rosuvastatin Calcium [Crestor] 10 mg PO HS 11/30/16 05/06/17 Previous Rx's Medication Instructions Recorded Aspirin 81 mg PO DAILY chew 12/02/16 predniSONE 20 mg PO BID 5 Days tab 02/13/18 Allergies Allergy/AdvReac Type Severity Reaction Status Date / Time Sulfa (Sulfonamide Allergy Rash/Hives Verified 02/13/18 11:32 Antibiotics) Review of Systems ROS Statement: Those systems with pertinent positive or pertinent negative responses have been documented in the HPI. ROS Other: All systems not noted in ROS Statement are negative. Past Medical History Past Medical History: Cancer, Hyperlipidemia, Hypertension, Myocardial Infarction ([place]) Additional Past Medical History / Comment(s): BASAL CELL SKIN CANCER, PARKINSONS , CONSTIPATION, PST CHARTINGREFLECTED LEGIONNAIRS DISEASE, RT FOOT WOUND(HX OF OSTEOMYELITIS -GOES TO THE [facility] EVERY WEDNESDAY) Last Myocardial Infarction Date:: 1991 History of Any Multi-Drug Resistant Organisms: MRSA Date of last positivie culture/infection: 03/03/16 MDRO Source:: right leg Past Surgical History: Coronary Bypass/CABG, Heart Catheterization With Stent, Tonsillectomy Additional Past Surgical History / Comment(s): " 4 VESSEL CABG 23 OR 24 YEARS AGO"CATARACTS,SEVERAL HEART CATHS," X12 STENTS" Past Anesthesia/Blood Transfusion Reactions: No Reported Reaction Date of Last Stent Placement:: 2010 Past Psychological History: No Psychological Hx Reported Smoking Status: Never smoker Past Alcohol Use History: Occasional Past Drug Use History: None Reported - Past Family History Father History Unknown: Yes Family Medical History: Myocardial Infarction ([place]) Mother Family Medical History: Cancer, Diabetes Mellitus Additional Family Medical History / Comment(s): "stomach problems and had bowel sx-"part of intestines removed" General Exam - General Exam Comments Initial Comments: General: The patient is awake and alert, in no distress, and does not appear acutely ill. Eye: Pupils are equal, round and reactive to light, extra-ocular movements are intact. No nystagmus. There is normal conjunctiva bilaterally. No signs of icterus. Ears, nose, mouth and throat: There are moist mucous membranes and no oral lesions. Neck: The neck is supple, there is no tenderness or JVD. Musculoskeletal: Normal ROM, no tenderness. Strength 5/5. Sensation intact. Pulses equal bilaterally 2+. Neurological: A&O x 3. CN II-XII intact, There are no obvious motor or sensory deficits. Coordination appears grossly intact. Speech is normal. Skin: Patient does have redness to the back and left arm. Patches consistent with hives. The areas do kayode. Psychiatric: Cooperative, appropriate mood & affect, normal judgment. Limitations: no limitations Course Vital Signs 02/13/18 11:31 Temperature 98.1 F Pulse Rate 72 Respiratory 18 Rate Blood Pressure 142/75 O2 Sat by Pulse 96 Oximetry Disposition Clinical Impression: Dermatitis Disposition: HOME SELF-CARE Condition: Good Instructions: Contact Dermatitis (ED) Additional Instructions: Please use medication as discussed. Please follow-up with premium card cancellation clerk/family doctor in the next 2 days of symptoms have not improved. Please return to emergency room if the symptoms increase or worsen or for any other concerns. Prescriptions: predniSONE 20 mg PO BID 5 Days tab Is patient prescribed a controlled substance at d/c from ED?: No Referrals: Hector Ibarra MD [Primary Care Provider] - 1-2 days Time of Disposition: 12:28
[2018-02-13 12:40] VITALS: BP 140/80; PULSE 76; RESP 16; TEMP 98.6
== END 2018-02-13 12:39 | disposition home or self-care (01) ==
LOC: EC 11:16
DX: L30.9 Dermatitis, unspecified (principal); E78.5 Hyperlipidemia, unspecified; I10 Essential (primary) hypertension; I25.2 Old myocardial infarction; G20 Parkinson's disease; M86.9 Osteomyelitis, unspecified; Z86.14 Personal history of Methicillin resistant Staphylococcus aureus infection; Z85.828 Personal history of other malignant neoplasm of skin; Z95.1 Presence of aortocoronary bypass graft; Z98.890 Other specified postprocedural states; Z79.01 Long term (current) use of anticoagulants; Z79.02 Long term (current) use of antithrombotics/antiplatelets; Z79.899 Other long term (current) drug therapy; Z88.2 Allergy status to sulfonamides
CPT/HCPCS: 99282

== ENCOUNTER 2018-02-19 01:13 | Emergency (ER) | payer MEDICARE, BC ==
--- NOTE | 2018-02-19 01:22 | ED ---
General Adult HPI - General Stated complaint: weakness Time Seen by Provider: 02/19/18 01:15 Source: RN notes reviewed, old records reviewed - History of Present Illness Initial comments: This is a 87-year-old male the ER for evaluation of dehydration. Comes for ER for evaluation of weakness sleeping a lot, is concerned for patient's level of activity. Patient herself denies chest pain headache shortness breath or abdominal pain. Patient states he does admit to decreased appetite today, mild fatigue - Related Data Home Medications Medication Instructions Recorded Confirmed Apixaban [Eliquis] 5 mg PO Q12H 11/30/16 05/06/17 Carbidopa-Levodopa 25-100 mg 1 tab PO BID 11/30/16 05/06/17 [Sinemet 25-100 mg] Carvedilol [Coreg] 6.25 mg PO BID 11/30/16 05/06/17 Clopidogrel [Plavix] 75 mg PO DAILY 11/30/16 05/06/17 Digoxin [Lanoxin] 250 mcg PO DAILY 11/30/16 05/06/17 Furosemide [Lasix] 40 mg PO BID 11/30/16 05/06/17 Isosorbide Mononitrate ER [Imdur] 60 mg PO DAILY 11/30/16 05/06/17 L.acidoph,Paracasei, B.lactis 1 cap PO DAILY 11/30/16 05/06/17 [Probiotic] Lactose-Reduced Food [Boost] 237 ml PO TID-W/MEALS 11/30/16 05/06/17 Lisinopril [Zestril] 2.5 mg PO DAILY 11/30/16 05/06/17 Potassium Chloride ER [K-Dur 20] 20 meq PO BID 11/30/16 05/06/17 Rosuvastatin Calcium [Crestor] 10 mg PO HS 11/30/16 05/06/17 Previous Rx's Medication Instructions Recorded Aspirin 81 mg PO DAILY chew 12/02/16 predniSONE 20 mg PO BID 5 Days tab 02/13/18 Ciprofloxacin HCl [Cipro] 500 mg PO Q12HR #20 tablet 02/19/18 Allergies Allergy/AdvReac Type Severity Reaction Status Date / Time Sulfa (Sulfonamide Allergy Rash/Hives Verified 02/13/18 11:32 Antibiotics) Review of Systems ROS Statement: Those systems with pertinent positive or pertinent negative responses have been documented in the HPI. ROS Other: All systems not noted in ROS Statement are negative. Past Medical History Past Medical History: Cancer, Hyperlipidemia, Hypertension, Myocardial Infarction ([place]) Additional Past Medical History / Comment(s): BASAL CELL SKIN CANCER, PARKINSONS , CONSTIPATION, PST CHARTINGREFLECTED LEGIONNAIRS DISEASE, RT FOOT WOUND(HX OF OSTEOMYELITIS -GOES TO THE [facility] EVERY WEDNESDAY) Last Myocardial Infarction Date:: 1991 History of Any Multi-Drug Resistant Organisms: MRSA Date of last positivie culture/infection: 03/03/16 MDRO Source:: right leg Past Surgical History: Coronary Bypass/CABG, Heart Catheterization With Stent, Tonsillectomy Additional Past Surgical History / Comment(s): " 4 VESSEL CABG 23 OR 24 YEARS AGO"CATARACTS,SEVERAL HEART CATHS," X12 STENTS" Past Anesthesia/Blood Transfusion Reactions: No Reported Reaction Date of Last Stent Placement:: 2010 Past Psychological History: No Psychological Hx Reported Smoking Status: Never smoker Past Alcohol Use History: Occasional Past Drug Use History: None Reported - Past Family History Father History Unknown: Yes Family Medical History: Myocardial Infarction ([place]) Mother Family Medical History: Cancer, Diabetes Mellitus Additional Family Medical History / Comment(s): "stomach problems and had bowel sx-"part of intestines removed" General Exam General appearance: alert, in no apparent distress Head exam: Present: atraumatic, normocephalic, normal inspection Eye exam: Present: normal appearance, PERRL, EOMI. Absent: scleral icterus, conjunctival injection, periorbital swelling ENT exam: Present: normal exam, mucous membranes moist Neck exam: Present: normal inspection. Absent: tenderness, meningismus, lymphadenopathy Respiratory exam: Present: normal lung sounds bilaterally. Absent: respiratory distress, wheezes, rales, rhonchi, stridor Cardiovascular Exam: Present: regular rate, normal rhythm, normal heart sounds. Absent: systolic murmur, diastolic murmur, rubs, gallop, clicks GI/Abdominal exam: Present: soft, normal bowel sounds. Absent: distended, tenderness, guarding, rebound, rigid Extremities exam: Present: normal inspection, full ROM, normal capillary refill. Absent: tenderness, pedal edema, joint swelling, calf tenderness Back exam: Present: normal inspection Neurological exam: Present: alert, oriented X3, CN II-XII intact Psychiatric exam: Present: normal affect, normal mood Skin exam: Present: warm, dry, intact, normal color. Absent: rash Course Vital Signs 02/19/18 02/19/18 02/19/18 01:19 03:04 04:05 Temperature 97.8 F 97.6 F Pulse Rate 73 62 62 Respiratory 16 16 16 Rate Blood Pressure 109/59 115/64 132/68 O2 Sat by Pulse 97 97 97 Oximetry - Reevaluation(s) Reevaluation #1: Patient states he is out of stay in hospital currently EKG Findings - EKG Comments: EKG Findings:: EKG shows sinus rhythm at 72, WI 170, QRS 114, QTc 435 Medical Decision Making - Medical Decision Making 87 male the ER for evaluation of nausea weakness lightheadedness and sleeping. Positive UTI. Patient given hydration here in the ER feels better would like to be discharged home - Lab Data Result diagrams: 02/19/18 01:25 02/19/18 01:25 Lab Results 02/19/18 02/19/18 02/19/18 Range/Units 01:15 01:25 01:25 WBC 14.3 H (3.8-10.6) k/uL RBC 3.33 L (4.30-5.90) m/uL Hgb 11.2 L (13.0-17.5) gm/dL Hct 34.0 L (39.0-53.0) % MCV 101.9 H (80.0-100.0) fL MCH 33.7 (25.0-35.0) pg MCHC 33.1 (31.0-37.0) g/dL RDW 13.7 (11.5-15.5) % Plt Count 248 (150-450) k/uL Neutrophils % 83 % Lymphocytes % 7 % Monocytes % 8 % Eosinophils % 1 % Basophils % 0 % Neutrophils # 11.8 H (1.3-7.7) k/uL Lymphocytes # 1.1 (1.0-4.8) k/uL Monocytes # 1.1 H (0-1.0) k/uL Eosinophils # 0.1 (0-0.7) k/uL Basophils # 0.0 (0-0.2) k/uL Macrocytosis Slight PT (9.0-12.0) sec INR (<1.2) APTT (22.0-30.0) sec Sodium (137-145) mmol/L Potassium (3.5-5.1) mmol/L Chloride (98-107) mmol/L Carbon Dioxide (22-30) mmol/L Anion Gap mmol/L BUN (9-20) mg/dL Creatinine (0.66-1.25) mg/dL Est GFR (CKD-EPI)AfAm (>60 ml/min/1.73 sqM) Est GFR (CKD-EPI)NonAf (>60 ml/min/1.73 sqM) Glucose (74-99) mg/dL Plasma Lactic Acid Omk[place] (0.7-2.0) mmol/L Calcium (8.4-10.2) mg/dL Phosphorus (2.5-4.5) mg/dL Magnesium (1.6-2.3) mg/dL Total Bilirubin (0.2-1.3) mg/dL AST (17-59) U/L ALT (21-72) U/L Alkaline Phosphatase (38-126) U/L Total Creatine Kinase 26 L (55-170) U/L CK-MB (CK-2) 1.0 (0.0-2.4) ng/mL CK-MB (CK-2) Rel Index 3.8 Troponin I 0.031 (0.000-0.034) ng/mL Total Protein (6.3-8.2) g/dL Albumin (3.5-5.0) g/dL TSH (0.465-4.680) mIU/L Urine Color Light Yellow Urine Appearance Clear (Clear) Urine pH 6.5 (5.0-8.0) Ur Specific [place] 1.007 (1.001-1.035) Urine Protein Negative (Negative) Urine Glucose (UA) Negative (Negative) Urine Ketones Negative (Negative) Urine Blood Negative (Negative) Urine Nitrite Negative (Negative) Urine Bilirubin Negative (Negative) Urine Urobilinogen <2.0 (<2.0) mg/dL Ur Leukocyte Esterase Large H (Negative) Urine RBC <1 (0-5) /hpf Urine WBC 62 H (0-5) /hpf Ur Squamous Epith Cells <1 (0-4) /hpf Urine Bacteria Many H (None) /hpf Urine Mucus Rare H (None) /hpf 02/19/18 02/19/1802/19/18 Range/Units 01:25 01:25 01:25 WBC (3.8-10.6) k/uL RBC (4.30-5.90) m/uL Hgb (13.0-17.5) gm/dL Hct (39.0-53.0) % MCV (80.0-100.0) fL MCH (25.0-35.0) pg MCHC (31.0-37.0) g/dL RDW (11.5-15.5) % Plt Count (150-450) k/uL Neutrophils % % Lymphocytes % % Monocytes % % Eosinophils % % Basophils % % Neutrophils # (1.3-7.7) k/uL Lymphocytes # (1.0-4.8) k/uL Monocytes # (0-1.0) k/uL Eosinophils # (0-0.7) k/uL Basophils # (0-0.2) k/uL Macrocytosis PT 11.9 (9.0-12.0) sec INR 1.3 H (<1.2) APTT 23.7 (22.0-30.0) sec Sodium 130 L (137-145) mmol/L Potassium 4.4 (3.5-5.1) mmol/L Chloride 93 L (98-107) mmol/L Carbon Dioxide 28 (22-30) mmol/L Anion Gap 9 mmol/L BUN 19 (9-20) mg/dL Creatinine 0.60 L (0.66-1.25) mg/dL Est GFR (CKD-EPI)AfAm >90 (>60 ml/min/1.73 sqM) Est GFR (CKD-EPI)NonAf >90 (>60 ml/min/1.73 sqM) Glucose 138 H (74-99) mg/dL Plasma Lactic Acid [place]mk[place] 1.2 (0.7-2.0) mmol/L Calcium 8.7 (8.4-10.2) mg/dL Phosphorus 3.6 (2.5-4.5) mg/dL Magnesium 2.0 (1.6-2.3) mg/dL Total Bilirubin 0.6 (0.2-1.3) mg/dL AST 23 (17-59) U/L ALT 34 (21-72) U/L Alkaline Phosphatase 65 (38-126) U/L Total Creatine Kinase (55-170) U/L CK-MB (CK-2) (0.0-2.4) ng/mL CK-MB (CK-2) Rel Index Troponin I (0.000-0.034) ng/mL Total Protein 5.7 L (6.3-8.2) g/dL Albumin 3.5 (3.5-5.0) g/dL TSH 4.230 (0.465-4.680) mIU/L Urine Color Urine Appearance (Clear) Urine pH (5.0-8.0) Ur Specific [place] (1.001-1.035) Urine Protein (Negative) Urine Glucose (UA) (Negative) Urine Ketones (Negative) Urine Blood (Negative) Urine Nitrite (Negative) Urine Bilirubin (Negative) Urine Urobilinogen (<2.0) mg/dL Ur Leukocyte Esterase (Negative) Urine RBC (0-5) /hpf Urine WBC (0-5) /hpf Ur Squamous Epith Cells (0-4) /hpf Urine Bacteria (None) /hpf Urine Mucus (None) /hpf - Radiology Data Radiology results: report reviewed (Her chest x-rays negative for acute disease) , image reviewed Disposition Clinical Impression: Dehydration, Weakness, UTI (urinary tract infection) Disposition: HOME SELF-CARE Condition: Good Instructions: Dehydration (ED), Urinary Tract Infection in Men (ED) Prescriptions: Ciprofloxacin HCl [Cipro] 500 mg PO Q12HR #20 tablet Is patient prescribed a controlled substance at d/c from ED?: No Referrals: Hector Ibarra MD [Primary Care Provider] - 1-2 days
[2018-02-19 01:24] VITALS: RESP 16
[2018-02-19 01:34] LABS: Basophils % (A) 0 %; Eosinophils # (A) 0.1 k/uL (0-0.7); Eosinophils % (A) 1 %; HGB 11.2 gm/dL (13.0-17.5); Lymphocytes # (A) 1.1 k/uL (1.0-4.8); Lymphocytes % (A) 7 %; MCH 33.7 pg (25.0-35.0); MCHC 33.1 g/dL (31.0-37.0); MCV 101.9 fL (80.0-100.0); Macrocytosis Slight; Mean Platelet Volume 6.5; Monocytes # (A) 1.1 k/uL (0-1.0); Monocytes % (A) 8 %; Neutrophils # (A) 11.8 k/uL (1.3-7.7); Neutrophils % (A) 83 %; Platelet Count 248 k/uL (150-450); RBC 3.33 m/uL (4.30-5.90); RDW 13.7 % (11.5-15.5); WBC 14.3 k/uL (3.8-10.6)
[2018-02-19 01:45] LABS: INR 1.3 (<1.2); Partial Thromboplastin Time 23.7 sec (22.0-30.0); Prothrombin Time 11.9 sec (9.0-12.0)
[2018-02-19 01:48] LABS: ALT 34 U/L (21-72); AST 23 U/L (17-59); Albumin 3.5 g/dL (3.5-5.0); Alkaline Phosphatase 65 U/L (38-126); Anion Gap 9 mmol/L; Blood Urea Nitrogen 19 mg/dL (9-20); Calcium 8.7 mg/dL (8.4-10.2); Carbon Dioxide 28 mmol/L (22-30); Chloride 93 mmol/L (98-107); Glucose 138 mg/dL (74-99); Phosphorus 3.6 mg/dL (2.5-4.5); Potassium 4.4 mmol/L (3.5-5.1); Sodium 130 mmol/L (137-145); Total Bilirubin 0.6 mg/dL (0.2-1.3); Total Protein 5.7 g/dL (6.3-8.2)
--- NOTE | 2018-02-19 02:05 | XR ---
EXAMINATION TYPE: XR chest 2V DATE OF EXAM: 02/19/2018 COMPARISON: 11/30/2016 HISTORY: Weakness TECHNIQUE: Frontal and lateral views of the chest are obtained. FINDINGS: There is no heart failure nor confluent pneumonic infiltrate. Costophrenic angles are elvira r. There are chest leads. There are sternal wires. Heart appears slightly enlarged. There are chest l praveen. IMPRESSION: No active cardiopulmonary disease. Borderline cardiomegaly. No change.
[2018-02-19 02:07] LABS: Troponin I 0.031 ng/mL (0.000-0.034)
[2018-02-19] MEDS ORDERED: SODIUM CHLORIDE 0.9% 1,000 ML IV STA (02:29)
[2018-02-19 03:05] VITALS: PULSE 62; TEMP 97.6
[2018-02-19 03:47] LABS: Appearance,Urine Clear (Clear); Bacteria,Urine Many /hpf; Bilirubin,Urine Negative (Negative); Blood,Urine Negative (Negative); Color,Urine Light Yellow; Glucose,Urine (UA) Negative (Negative); Ketones,Urine Negative (Negative); Leukocyte Esterase,Urine Large (Negative); Mucus,Urine Rare /hpf; Nitrite,Urine Negative (Negative); PH, Urine 6.5 (5.0-8.0); Protein,Urine Negative (Negative); RBC,Urine <1 /hpf (0-5); Specific Gravity,Urine 1.007 (1.001-1.035); Squamous Epithelial Cell,Urine <1 /hpf (0-4); Urobilinogen,Urine <2.0 mg/dL (<2.0); WBC,Urine 62 /hpf (0-5)
[2018-02-19 04:05] VITALS: BP 132/68
[2018-02-19] MEDS ORDERED: cefTRIAXone IN SWFI 1,000 MG/10 ML SYRINGE IVP STA (04:42)
[2018-02-19] MEDS ORDERED: CIPROFLOXACIN HCL 500 MG TAB PO STA (04:43)
== END 2018-02-19 05:12 | disposition home or self-care (01) ==
LOC: EC 01:13
DX: E86.0 Dehydration (principal); N39.0 Urinary tract infection, site not specified; R53.1 Weakness; R11.0 Nausea; E78.5 Hyperlipidemia, unspecified; I10 Essential (primary) hypertension; I25.2 Old myocardial infarction; G20 Parkinson's disease; Z85.828 Personal history of other malignant neoplasm of skin; Z86.14 Personal history of Methicillin resistant Staphylococcus aureus infection; Z79.01 Long term (current) use of anticoagulants; Z79.899 Other long term (current) drug therapy; Z88.2 Allergy status to sulfonamides; Z95.1 Presence of aortocoronary bypass graft; Z95.5 Presence of coronary angioplasty implant and graft; Z53.29 Procedure and treatment not carried out because of patient's decision for other reasons
CPT/HCPCS: 36415; 71046; 80053; 81001; 82550; 82553; 83605; 83735; 84100; 84443; 84484; 85025; 85610; 85730; 87077; 87086; 87186; 93005; 96360; 99285

== ENCOUNTER 2018-06-26 11:08 | Emergency (ER) | payer MEDICARE, BC ==
[2018-06-26 11:32] VITALS: BP 103/50; PULSE 128; RESP 18; TEMP 98.2
[2018-06-26] MEDS ORDERED: CLOTRIMAZOLE 1% CREAM 15 GM TUBE TOPICAL ONE (11:51)
[2018-06-26] MEDS ORDERED: hydrOXYzine HCL 25 MG TAB PO STA (11:52)
--- NOTE | 2018-06-26 11:58 | ED ---
General Adult HPI - General Chief complaint: Skin/Abscess/Foreign Body Stated complaint: Rash Time Seen by Provider: 06/26/18 11:38 Source: patient Mode of arrival: wheelchair Limitations: no limitations - History of Present Illness Initial comments: Patient is an 86-year-old male presents with a chief complaint of a rash. Patient says of the rash began about 2 days ago. He has had similar rashes in the past for which she has seen dermatologists and been placed on steroid cream. Patient states that the rash is itchy in nature and is now painful secondary to scratching. Patient states it keeps him up at night. He identify an inciting incident. There is no changes to soaps, detergents, clothing, or fragrances. Patient denies any other complaints today. No aggravating or alleviating factors to his itch. He has tried the steroid cream without any relief. - Related Data Home Medications Medication Instructions Recorded Confirmed Apixaban [Eliquis] 5 mg PO Q12H 11/30/16 05/06/17 Carbidopa-Levodopa 25-100 mg 1 tab PO BID 11/30/16 05/06/17 [Sinemet 25-100 mg] Carvedilol [Coreg] 6.25 mg PO BID 11/30/16 05/06/17 Clopidogrel [Plavix] 75 mg PO DAILY 11/30/16 05/06/17 Digoxin [Lanoxin] 250 mcg PO DAILY 11/30/16 05/06/17 Furosemide [Lasix] 40 mg PO BID 11/30/16 05/06/17 Isosorbide Mononitrate ER [Imdur] 60 mg PO DAILY 11/30/16 05/06/17 L.acidoph,Paracasei, B.lactis 1 cap PO DAILY 11/30/16 05/06/17 [Probiotic] Lactose-Reduced Food [Boost] 237 ml PO TID-W/MEALS 11/30/16 05/06/17 Lisinopril [Zestril] 2.5 mg PO DAILY 11/30/16 05/06/17 Potassium Chloride ER [K-Dur 20] 20 meq PO BID 11/30/16 05/06/17 Rosuvastatin Calcium [Crestor] 10 mg PO HS 11/30/16 05/06/17 Previous Rx's Medication Instructions Recorded Aspirin 81 mg PO DAILY chew 12/02/16 predniSONE 20 mg PO BID 5 Days tab 02/13/18 Ciprofloxacin HCl [Cipro] 500 mg PO Q12HR #20 tablet 02/19/18 Clotrimazole Cream [Lotrimin Cream] 1 applic TOPICAL BID 28 Days #1 06/26/18 tube hydrOXYzine HCL [Atarax] 50 mg PO TID PRN #20 tab 06/26/18 Allergies Allergy/AdvReac Type Severity Reaction Status Date / Time Sulfa (Sulfonamide Allergy Rash/Hives Verified 06/26/18 11:32 Antibiotics) Review of Systems ROS Statement: Those systems with pertinent positive or pertinent negative responses have been documented in the HPI. ROS Other: All systems not noted in ROS Statement are negative. Skin: Reports: rash, pruritus Past Medical History Past Medical History: Cancer, Hyperlipidemia, Hypertension, Myocardial Infarction ([place]) Additional Past Medical History / Comment(s): BASAL CELL SKIN CANCER, PARKINSONS , CONSTIPATION, PST CHARTINGREFLECTED LEGIONNAIRS DISEASE, RT FOOT WOUND(HX OF OSTEOMYELITIS -GOES TO THE [facility] EVERY WEDNESDAY) Last Myocardial Infarction Date:: 1991 History of Any Multi-Drug Resistant Organisms: MRSA Date of last positivie culture/infection: 03/03/16 MDRO Source:: right leg Past Surgical History: Coronary Bypass/CABG, Heart Catheterization With Stent, Tonsillectomy Additional Past Surgical History / Comment(s): " 4 VESSEL CABG 23 OR 24 YEARS AGO"CATARACTS,SEVERAL HEART CATHS," X12 STENTS" Past Anesthesia/Blood Transfusion Reactions: No Reported Reaction Date of Last Stent Placement:: 2010 Past Psychological History: No Psychological Hx Reported Smoking Status: Never smoker Past Alcohol Use History: Daily Past Drug Use History: None Reported - Past Family History Father History Unknown: Yes Family Medical History: Myocardial Infarction ([place]) Mother Family Medical History: Cancer, Diabetes Mellitus Additional Family Medical History / Comment(s): "stomach problems and had bowel sx-"part of intestines removed" General Exam Limitations: no limitations General appearance: alert, in no apparent distress Head exam: Present: atraumatic, normocephalic Eye exam: Present: normal appearance ENT exam: Present: normal exam Neck exam: Present: normal inspection Respiratory exam: Present: normal lung sounds bilaterally. Absent: respiratory distress, wheezes Cardiovascular Exam: Present: regular rate, normal rhythm GI/Abdominal exam: Present: soft. Absent: distended, tenderness Rectal exam: Present: deferred Extremities exam: Present: normal inspection Back exam: Present: normal inspection Neurological exam: Present: alert, oriented X3 Psychiatric exam: Present: normal affect, normal mood Skin exam: Present: warm, dry, intact, rash (patient has a mildly erythematous rash in the skin folds. B/L AC fossa, axilla, and inner thighs affected. the rash is no raised, flat and shiny in nature. consistent with tinea corporis. ) Course Vital Signs 06/26/18 11:29 Temperature 98.2 F Pulse Rate 128 H Respiratory 18 Rate Blood Pressure 103/50 O2 Sat by Pulse 100 Oximetry Medical Decision Making - Medical Decision Making patient presents with a shiny pruritic rash in the AC fossa's, lower back, axilla and inner thighs. initial VS in triage show tachycardia but are otherwise stable. in exam room, VS normal. rash consistent with tinea corporis given shiny appearance, recent use of steroids and non-identification of other sources. patient given atarax and anti-fungal cream. patient and his state they will be able to follow up with derm and pcp this week. at this time, patient stabe for discharge, he was instucted to follow up in 1-2 days, return to the Ed if sx worsen or change. Disposition Clinical Impression: Tinea corporis Disposition: HOME SELF-CARE Condition: Good Instructions: Tinea Corporis (ED) Prescriptions: Clotrimazole Cream [Lotrimin Cream] 1 applic TOPICAL BID 28 Days #1 tube hydrOXYzine HCL [Atarax] 50 mg PO TID PRN #20 tab PRN Reason: Itching Is patient prescribed a controlled substance at d/c from ED?: No Referrals: Hector Ibarra MD [Primary Care Provider] - 1-2 days
== END 2018-06-26 12:24 | disposition home or self-care (01) ==
LOC: EC 11:08
DX: B35.4 Tinea corporis (principal); E78.5 Hyperlipidemia, unspecified; I10 Essential (primary) hypertension; I25.2 Old myocardial infarction; G20 Parkinson's disease; Z85.828 Personal history of other malignant neoplasm of skin; Z86.14 Personal history of Methicillin resistant Staphylococcus aureus infection; Z79.01 Long term (current) use of anticoagulants; Z79.899 Other long term (current) drug therapy; Z88.2 Allergy status to sulfonamides; Z95.1 Presence of aortocoronary bypass graft; Z95.5 Presence of coronary angioplasty implant and graft
CPT/HCPCS: 99282

== ENCOUNTER 2019-02-19 18:03 | Emergency (ER) | payer MEDICARE, BC ==
--- NOTE | 2019-02-19 18:13 | ED ---
General Adult HPI - General Stated complaint: neuro deficit Time Seen by Provider: 02/19/19 18:06 Source: patient, EMS, RN notes reviewed Mode of arrival: EMS Limitations: no limitations - History of Present Illness Initial comments: Patient is a pleasant 88-year-old male presenting to the emergency department with concern for stroke. Onset of symptoms was around noon. Patient states she had a gradual mild headache that has resolved. Headache was never severe. Headache was not sudden onset. Patient states it was left frontal. Patient has noticed he has had some decreased vision out of the left side however is unclear if it is one or 2 eyes. Patient has not noticed any extremity weakness. reported that patient was leaning to the left side. Patient originally denied this to EMS and then later told him it was abnormal. No history of similar symptoms previously. 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 No chest pain. - Related Data Home Medications Medication Instructions Recorded Confirmed Apixaban [Eliquis] 5 mg PO Q12H 11/30/16 05/06/17 Carbidopa-Levodopa 25-100 mg 1 tab PO BID 11/30/16 05/06/17 [Sinemet 25-100 mg] Carvedilol [Coreg] 6.25 mg PO BID 11/30/16 05/06/17 Clopidogrel [Plavix] 75 mg PO DAILY 11/30/16 05/06/17 Digoxin [Lanoxin] 250 mcg PO DAILY 11/30/16 05/06/17 Furosemide [Lasix] 40 mg PO BID 11/30/16 05/06/17 Isosorbide Mononitrate ER [Imdur] 60 mg PO DAILY 11/30/16 05/06/17 L.acidoph,Paracasei, B.lactis 1 cap PO DAILY 11/30/16 05/06/17 [Probiotic] Lactose-Reduced Food [Boost] 237 ml PO TID-W/MEALS 11/30/16 05/06/17 Lisinopril [Zestril] 2.5 mg PO DAILY 11/30/16 05/06/17 Potassium Chloride ER [K-Dur 20] 20 meq PO BID 11/30/16 05/06/17 Rosuvastatin Calcium [Crestor] 10 mg PO HS 11/30/16 05/06/17 Previous Rx's Medication Instructions Recorded Aspirin 81 mg PO DAILY chew 12/02/16 predniSONE 20 mg PO BID 5 Days tab 02/13/18 Ciprofloxacin HCl [Cipro] 500 mg PO Q12HR #20 tablet 02/19/18 Clotrimazole Cream [Lotrimin Cream] 1 applic TOPICAL BID 28 Days #1 06/26/18 tube hydrOXYzine HCL [Atarax] 50 mg PO TID PRN #20 tab 06/26/18 Allergies Allergy/AdvReac Type Severity Reaction Status Date / Time Sulfa (Sulfonamide Allergy Rash/Hives Verified 02/19/19 18:36 Antibiotics) Review of Systems ROS Statement: Those systems with pertinent positive or pertinent negative responses have been documented in the HPI. ROS Other: All systems not noted in ROS Statement are negative. Constitutional: Denies: fever Eyes: Reports: as per HPI, vision change. Denies: eye pain ENT: Denies: ear pain Respiratory: Denies: cough Cardiovascular: Denies: chest pain Endocrine: Denies: fatigue Gastrointestinal: Denies: abdominal pain Genitourinary: Denies: dysuria Musculoskeletal: Denies: back pain Skin: Denies: rash Neurological: Reports: as per HPI, headache, weakness. Denies: confusion Past Medical History Past Medical History: Cancer, Hyperlipidemia, Hypertension, Myocardial Infarction ([place]) Additional Past Medical History / Comment(s): BASAL CELL SKIN CANCER, PARKINSONS, CONSTIPATION, PST CHARTINGREFLECTED LEGIONNAIRS DISEASE, RT FOOT WOUND(HX OF OSTEOMYELITIS -GOES TO THE [facility] EVERY WEDNESDAY) Last Myocardial Infarction Date:: 1991 History of Any Multi-Drug Resistant Organisms: MRSA Date of last positivie culture/infection: 03/03/16 MDRO Source:: right leg Past Surgical History: Coronary Bypass/CABG, Heart Catheterization With Stent, Tonsillectomy Additional Past Surgical History / Comment(s): " 4 VESSEL CABG 23 OR 24 YEARS AGO"CATARACTS,SEVERAL HEART CATHS," X12 STENTS" Past Anesthesia/Blood Transfusion Reactions: No Reported Reaction Date of Last Stent Placement:: 2010 Past Psychological History: No Psychological Hx Reported Smoking Status: Never smoker Past Alcohol Use History: Daily Past Drug Use History: None Reported - Past Family History Father History Unknown: Yes Family Medical History: Myocardial Infarction ([place]) Mother Family Medical History: Cancer, Diabetes Mellitus Additional Family Medical History / Comment(s): "stomach problems and had bowel sx-"part of intestines removed" General Exam Limitations: no limitations General appearance: alert, in no apparent distress Head exam: Present: atraumatic Eye exam: Present: normal appearance, PERRL, other (Patient unable to move either eye left of the midline.) ENT exam: Present: normal oropharynx Neck exam: Present: normal inspection Respiratory exam: Present: normal lung sounds bilaterally Cardiovascular Exam: Present: regular rate, normal rhythm, systolic murmur GI/Abdominal exam: Present: soft. Absent: tenderness Extremities exam: Present: other (Bilateral AKA) Neurological exam: Present: alert, oriented X3, other (Left-sided neglect. Unable to move eyes left of midline. No facial palsy.) Expanded Cranial nerves: EOM's Intact: Abnormal Left (Unable to move eyes left of midline), Nystagmus: Abnormal Left (Decreased sensation left forehead) Sensory exam: Upper Extremity Light Touch: Abnormal Left, Lower Extremity Light Touch: Abnormal Left Motor strength exam: RUE: 5, LUE: 4, RLE: 5, LLE: 5 Eye Response: (4) open spontaneously Motor Response: (6) obeys commands Verbal Response: (5) oriented Psychiatric exam: Present: normal affect, normal mood Skin exam: Present: normal color Course Vital Signs 02/19/19 18:03 Temperature 98.3 F Pulse Rate 91 Respiratory 18 Rate Blood Pressure 124/77 O2 Sat by Pulse 98 Oximetry - Reevaluation(s) Reevaluation #1: 02/19/19 18:24 Case was earlier discussed with Dr. Velasco who will evaluate films and call back. Case again discussed with Dr. 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 He does request transfer to [facility]. 02/19/19 18:34 Patient reevaluated. Patient and family updated. Patient is not a candidate for TPA secondary to onset greater Than 4.5 hours. In addition patient is on Eliquis. 02/19/19 18:42 Case was discussed in detail with Dr. Camarena at [facility], who will accept transfer. EKG Findings - EKG Comments: EKG Findings:: Sinus rhythm at 74. MO 188. QRS 122. QT 442. QTC 490. Left axis. Nonspecific intraventricular conduction delay. No acute ST change. Medical Decision Making - Lab Data Lab Results 02/19/19 Range/Units 18:07 POC Glucose (mg/dL) 163 H (75-99) mg/dL POC Glu Dice Dealer ID Sony Avendano - Radiology Data Radiology results: report reviewed (Computed tomography scan of the brain is reported by radiology as no acute abnormality. As discussed with neurology, Dr. Velasco he does have concern for right occipital infarct.) Critical Care Time Critical Care Time: Yes Total Critical Care Time: 32 Disposition Clinical Impression: Cerebrovascular accident Disposition: OTHER INSTITUTION NOT DEFINED Is patient prescribed a controlled substance at d/c from ED?: No Referrals: Hector Ibarra MD [Primary Care Provider] - 1-2 days Time of Disposition: 18:43 - Out of Hospital Transfer - Req. Specs Out of Hospital Transfer - Requested Specifics: Other Emergency Center
--- NOTE | 2019-02-19 18:33 | CT ---
EXAMINATION TYPE: CT brain wo con for TPA DATE OF EXAM: 02/19/2019 COMPARISON: 11/30/2016 HISTORY: Weakness CT DLP: mGycm Automated exposure control for dose reduction was used. FINDINGS: There is cerebral cortical atrophy. There is no mass effect nor midline shift. There is no sign of in tracranial hemorrhage. The calvarium is intact. Skull base is intact. IMPRESSION: CEREBRAL ATROPHY. NO ACUTE INTRACRANIAL ABNORMALITY. NO CHANGE.
[2019-02-19 18:36] LABS: Glucose,Whole Blood 163 mg/dL (75-99)
--- NOTE | 2019-02-19 18:41 | CT ---
EXAMINATION TYPE: CT angio head neck DATE OF EXAM: 02/19/2019 HISTORY: Weakness COMPARISON: None CT DLP: mGycm. Automated Exposure Control for Dose Reduction was Utilized. TECHNIQUE: CTA scan of the neck is performed , patient injected with mL of , axial images are obtain ed, coronal and sagittal reformatted images are reviewed. Three-D reconstructed images are created on an independent workstation and reviewed. The contrast was Isovue 50 mL. FINDINGS: There are moderate bilateral pleural effusions. Thoracic aorta is atheromatous. There is normal branc ingris pattern of the great vessels on the aortic arch. There is bilateral arterial flow in the subclav lico arteries. There is arterial flow in the common internal and external carotid arteries bilaterally . There is arterial flow in both vertebral arteries. There is no evidence of carotid or vertebral art ventura dissection. There is plaque formation at the carotid artery bifurcations bilaterally with lumen narrowing less th an 15%. The basilar artery fills mostly from the left vertebral artery. There is arterial flow in the anterior middle and posterior cerebral arteries. There is arterial flow in the vertebrobasilar artery system. There is normal contrast opacification of the venous sinuses. I see no evidence of intracranial arterial stenosis. There is no aneurysm or neovascularity. IMPRESSION: No evidence of hemodynamic stenosis. Minimal plaque at the carotid artery bifurcations.
[2019-02-19 18:46] LABS: Anisocytosis Slight; Basophils % (A) 1 %; Eosinophils # (A) 0.5 k/uL (0-0.7); Eosinophils % (A) 9 %; HCT 32.4 % (39.0-53.0); HGB 10.4 gm/dL (13.0-17.5); Lymphocytes # (A) 0.6 k/uL (1.0-4.8); Lymphocytes % (A) 12 %; MCH 32.1 pg (25.0-35.0); MCHC 32.2 g/dL (31.0-37.0); MCV 99.6 fL (80.0-100.0); Macrocytosis Slight; Mean Platelet Volume 7.3; Monocytes # (A) 0.4 k/uL (0-1.0); Monocytes % (A) 7 %; Neutrophils # (A) 3.5 k/uL (1.3-7.7); Neutrophils % (A) 69 %; Platelet Count 223 k/uL (150-450); RBC 3.25 m/uL (4.30-5.90); RDW 16.6 % (11.5-15.5); WBC 5.1 k/uL (3.8-10.6)
[2019-02-19 18:54] VITALS: RESP 18
[2019-02-19 18:54] LABS: INR 1.1 (<1.2); Partial Thromboplastin Time 27.4 sec (22.0-30.0); Prothrombin Time 11.9 sec (9.0-12.0)
[2019-02-19 18:56] LABS: ALT 15 U/L (21-72); AST 22 U/L (17-59); African American GFR (CKD) >90 (>60 ml/min/1.73 sqM); Albumin 3.1 g/dL (3.5-5.0); Alkaline Phosphatase 70 U/L (38-126); Anion Gap 7 mmol/L; Blood Urea Nitrogen 13 mg/dL (9-20); Calcium 8.9 mg/dL (8.4-10.2); Carbon Dioxide 27 mmol/L (22-30); Chloride 103 mmol/L (98-107); Glucose 126 mg/dL (74-99); Potassium 4.2 mmol/L (3.5-5.1); Sodium 137 mmol/L (137-145); Total Bilirubin 0.9 mg/dL (0.2-1.3); Total Protein 5.8 g/dL (6.3-8.2)
[2019-02-19 19:04] VITALS: BP 122/71; PULSE 91; TEMP 97.9
== END 2019-02-19 19:30 | disposition other institution (70) ==
LOC: EC 18:03
DX: I63.9 Cerebral infarction, unspecified (principal); R29.705 NIHSS score 5; I10 Essential (primary) hypertension; E78.5 Hyperlipidemia, unspecified; I25.2 Old myocardial infarction; Z79.01 Long term (current) use of anticoagulants; Z79.02 Long term (current) use of antithrombotics/antiplatelets; Z79.899 Other long term (current) drug therapy; Z88.2 Allergy status to sulfonamides; Z95.5 Presence of coronary angioplasty implant and graft; Z85.828 Personal history of other malignant neoplasm of skin
CPT/HCPCS: 36415; 93005; 80053; 84484; 85025; 85610; 85730; 70496; 70450; 70498; 99291; Q9967

== ENCOUNTER 2022-02-27 19:12 | Inpatient (IN) | payer MEDICARE, BC ==
[2022-02-27] MEDS ORDERED: SODIUM CHLORIDE 0.9% 1,000 ML IV ONE (19:24)
--- NOTE | 2022-02-27 19:28 | ED ---
General Adult HPI - General Stated complaint: Altered Mental Status Time Seen by Provider: 02/27/22 19:12 Source: patient, EMS, RN notes reviewed Mode of arrival: EMS Limitations: no limitations - History of Present Illness Initial comments: Patient is a pleasant 89-year-old male presenting to the emergency department with concerns with altered mental status. He should states he feels fine and has no complaints. On evaluation mouth appears dry and patient admits that it does feel dry. Patient does not feel confused. Patient denies weakness. Patient states skin lesions are from previous skin cancer. - Related Data Home Medications Medication Instructions Recorded Confirmed Carbidopa-Levodopa 25-100 mg 1 tab PO BID 11/30/16 02/19/19 [Sinemet 25-100 mg] Clopidogrel [Plavix] 75 mg PO DAILY 11/30/16 02/19/19 Rosuvastatin Calcium [Crestor] 10 mg PO HS 11/30/16 02/19/19 carvediloL [Coreg] 6.25 mg PO BID 11/30/16 02/19/19 Baclofen [Lioresal] 10 mg PO BID PRN 02/19/19 02/19/19 Docusate [Colace] 100 mg PO BID PRN 02/19/19 02/19/19 Multivitamins, Thera [Multivitamin 1 tab PO DAILY 02/19/19 02/19/19 (formulary)] Pantoprazole Sodium [Protonix] 40 mg PO DAILY 02/19/19 02/19/19 Sennosides [Senna] 8.6 mg PO BID PRN 02/19/19 02/19/19 Previous Rx's Medication Instructions Recorded Aspirin 81 mg PO DAILY chew 12/02/16 Allergies Allergy/AdvReac Type Severity Reaction Status Date / Time Sulfa (Sulfonamide Allergy Rash/Hives Verified 02/19/19 18:36 Antibiotics) Review of Systems ROS Statement: Those systems with pertinent positive or pertinent negative responses have been documented in the HPI. ROS Other: All systems not noted in ROS Statement are negative. Constitutional: Denies: fever Eyes: Denies: eye pain ENT: Denies: ear pain Respiratory: Denies: cough Cardiovascular: Denies: chest pain Endocrine: Denies: fatigue Gastrointestinal: Denies: abdominal pain Genitourinary: Denies: dysuria Musculoskeletal: Denies: back pain Skin: Denies: rash Neurological: Reports: as per HPI. Denies: headache Past Medical History Past Medical History: Cancer, Hyperlipidemia, Hypertension, Myocardial Infarction ([place]) Additional Past Medical History / Comment(s): BASAL CELL SKIN CANCER, PARKINSONS, CONSTIPATION, PST CHARTINGREFLECTED LEGIONNAIRS DISEASE, RT FOOT WOUND(HX OF OSTEOMYELITIS -GOES TO THE [facility] EVERY WEDNESDAY) Last Myocardial Infarction Date:: 1991 History of Any Multi-Drug Resistant Organisms: MRSA Date of last positivie culture/infection: 03/03/16 MDRO Source:: right leg Past Surgical History: Coronary Bypass/CABG, Heart Catheterization With Stent, Tonsillectomy Additional Past Surgical History / Comment(s): " 4 VESSEL CABG 23 OR 24 YEARS AGO"CATARACTS,SEVERAL HEART CATHS," X12 STENTS" Past Anesthesia/Blood Transfusion Reactions: No Reported Reaction Date of Last Stent Placement:: 2010 Past Psychological History: No Psychological Hx Reported Past Alcohol Use History: Daily Past Drug Use History: None Reported - Past Family History Father History Unknown: Yes Family Medical History: Myocardial Infarction ([place]) Mother Family Medical History: Cancer, Diabetes Mellitus Additional Family Medical History / Comment(s): "stomach problems and had bowel sx-"part of intestines removed" General Exam Limitations: no limitations General appearance: alert, in no apparent distress Head exam: Present: atraumatic, other (Multiple scalp lesions) Eye exam: Present: normal appearance, PERRL, EOMI ENT exam: Present: mucous membranes dry Neck exam: Present: normal inspection Respiratory exam: Present: normal lung sounds bilaterally Cardiovascular Exam: Present: regular rate, normal rhythm GI/Abdominal exam: Present: soft. Absent: tenderness Extremities exam: Present: other (Bilateral AKA) Neurological exam: Present: alert, oriented X3, CN II-XII intact. Absent: motor sensory deficit Expanded Neurological exam: Present: protecting the airway Patient oriented to: Present: person, place, time Motor strength exam: RUE: 5, LUE: 5 Eye Response: (4) open spontaneously Motor Response: (6) obeys commands Verbal Response: (5) oriented Psychiatric exam: Present: normal affect, normal mood Skin exam: Present: other (Multiple scalp lesions) Course Vital Signs 02/27/22 02/27/22 02/27/22 19:15 20:00 21:00 Temperature 98.2 F Pulse Rate 83 82 77 Respiratory 18 15 18 Rate Blood Pressure 112/72 112/72 116/78 O2 Sat by Pulse 96 98 96 Oximetry EKG Findings - EKG Comments: EKG Findings:: A. fib with rate of 72. QRS 126. QT 434. QTC 458. Left axis. Inferior Q waves. No acute ST change. Medical Decision Making - Medical Decision Making Patient reevaluated and resting comfortably in bed. Family is present. Family states patient has been acting abnormal and drowsy today. They're concerned symptoms are similar to previous stroke. Patient and family updated on results and plan. Case was discussed with Dr. fernandze, who will admit for Dr. Moreno, who admits for Dr. Kay - Lab Data Result diagrams: 02/27/22 19:38 02/27/22 19:38 Lab Results 02/27/22 02/27/22 02/27/22 Range/Units 19:29 19:38 19:38 WBC 13.2 H (3.8-10.6) k/uL RBC 3.33 L (4.30-5.90) m/uL Hgb 11.1 L (13.0-17.5) gm/dL Hct 33.8 L (39.0-53.0) % MCV 101.6 H (80.0-100.0) fL MCH 33.3 (25.0-35.0) pg MCHC 32.7 (31.0-37.0) g/dL RDW 14.9 (11.5-15.5) % Plt Count 149 L (150-450) k/uL MPV 7.7 Neutrophils % 91 % Lymphocytes % 2 % Monocytes % 6 % Eosinophils % 0 % Basophils % 0 % Neutrophils # 12.0 H (1.3-7.7) k/uL Lymphocytes # 0.3 L (1.0-4.8) k/uL Monocytes # 0.8 (0-1.0) k/uL Eosinophils # 0.1 (0-0.7) k/uL Basophils # 0.0 (0-0.2) k/uL Macrocytosis Slight Sodium 135 L (137-145) mmol/L Potassium 4.1 (3.5-5.1) mmol/L Chloride 103 (98-107) mmol/L Carbon Dioxide 24 (22-30) mmol/L Anion Gap 8 mmol/L BUN 21 H (9-20) mg/dL Creatinine 0.37 L (0.66-1.25) mg/dL Est GFR (CKD-EPI)AfAm >90 (>60 ml/min/1.73 sqM) Est GFR (CKD-EPI)NonAf >90 (>60 ml/min/1.73 sqM) Glucose 121 H (74-99) mg/dL Calcium 8.8 (8.4-10.2) mg/dL Total Bilirubin 1.6 H (0.2-1.3) mg/dL AST 33 (17-59) U/L ALT 7 (4-49) U/L Alkaline Phosphatase 107 (38-126) U/L Troponin I (0.000-0.034) ng/mL Total Protein 6.5 (6.3-8.2) g/dL Albumin 3.8 (3.5-5.0) g/dL Urine Color Yellow Urine Appearance Cloudy (Clear) Urine pH 5.5 (5.0-8.0) Ur Specific [place] 1.022 (1.001-1.035) Urine Protein 1+ H (Negative) Urine Glucose (UA) Negative (Negative) Urine Ketones Negative (Negative) Urine Blood Moderate H (Negative) Urine Nitrite Positive (Negative) Urine Bilirubin Negative (Negative) Urine Urobilinogen <2.0 (<2.0) mg/dL Ur Leukocyte Esterase Large H (Negative) Urine RBC 25 H (0-5) /hpf Urine WBC >182 H (0-5) /hpf Ur Squamous Epith Cells 1 (0-4) /hpf Urine Bacteria Many H (None) /hpf Hyaline Casts 6 H (0-2) /lpf Urine Mucus Many H (None) /hpf 02/27/22 Range/Units 19:38 WBC (3.8-10.6) k/uL RBC (4.30-5.90) m/uL Hgb (13.0-17.5) gm/dL Hct (39.0-53.0) % MCV (80.0-100.0) fL MCH (25.0-35.0) pg MCHC (31.0-37.0) g/dL RDW (11.5-15.5) % Plt Count (150-450) k/uL MPV Neutrophils % % Lymphocytes % % Monocytes % % Eosinophils % % Basophils % % Neutrophils # (1.3-7.7) k/uL Lymphocytes # (1.0-4.8) k/uL Monocytes # (0-1.0) k/uL Eosinophils # (0-0.7) k/uL Basophils # (0-0.2) k/uL Macrocytosis Sodium (137-145) mmol/L Potassium (3.5-5.1) mmol/L Chloride (98-107) mmol/L Carbon Dioxide (22-30) mmol/L Anion Gap mmol/L BUN (9-20) mg/dL Creatinine (0.66-1.25) mg/dL Est GFR (CKD-EPI)AfAm (>60 ml/min/1.73 sqM) Est GFR (CKD-EPI)NonAf (>60 ml/min/1.73 sqM) Glucose (74-99) mg/dL Calcium (8.4-10.2) mg/dL Total Bilirubin (0.2-1.3) mg/dL AST (17-59) U/L ALT (4-49) U/L Alkaline Phosphatase (38-126) U/L Troponin I 0.051 H* (0.000-0.034) ng/mL Total Protein (6.3-8.2) g/dL Albumin (3.5-5.0) g/dL Urine Color Urine Appearance (Clear) Urine pH (5.0-8.0) Ur Specific [place] (1.001-1.035) Urine Protein (Negative) Urine Glucose (UA) (Negative) Urine Ketones (Negative) Urine Blood (Negative) Urine Nitrite (Negative) Urine Bilirubin (Negative) Urine Urobilinogen (<2.0) mg/dL Ur Leukocyte Esterase (Negative) Urine RBC (0-5) /hpf Urine WBC (0-5) /hpf Ur Squamous Epith Cells (0-4) /hpf Urine Bacteria (None) /hpf Hyaline Casts (0-2) /lpf Urine Mucus (None) /hpf - Radiology Data Radiology results: image reviewed (Chest x-ray shows right pleural effusion.) Disposition Clinical Impression: Altered mental status, Urinary tract infection, Pleural effusion, Atrial fibrillation Disposition: ADMITTED IP TO THIS HOSP Is patient prescribed a controlled substance at d/c from ED?: No Referrals: Melida,Alfredo Frank, MD [Primary Care Provider] - 1-2 days Time of Disposition: 21:30
[2022-02-27 19:53] LABS: Appearance,Urine Cloudy (Clear); Color,Urine Yellow; Specific Gravity,Urine 1.022 (1.001-1.035)
[2022-02-27 19:54] LABS: Bacteria,Urine Many /hpf; Bilirubin,Urine Negative (Negative); Blood,Urine Moderate (Negative); Glucose,Urine (UA) Negative (Negative); Hyaline Casts,Urine 6 /lpf (0-2); Ketones,Urine Negative (Negative); Leukocyte Esterase,Urine Large (Negative); Mucus,Urine Many /hpf; Nitrite,Urine Positive (Negative); PH, Urine 5.5 (5.0-8.0); Protein,Urine 1+ (Negative); RBC,Urine 25 /hpf (0-5); Squamous Epithelial Cell,Urine 1 /hpf (0-4); Urobilinogen,Urine <2.0 mg/dL (<2.0); WBC,Urine >182 /hpf (0-5)
[2022-02-27 19:54] LABS: Basophils % (A) 0 %; Eosinophils # (A) 0.1 k/uL (0-0.7); Eosinophils % (A) 0 %; HCT 33.8 % (39.0-53.0); HGB 11.1 gm/dL (13.0-17.5); Lymphocytes # (A) 0.3 k/uL (1.0-4.8); Lymphocytes % (A) 2 %; MCH 33.3 pg (25.0-35.0); MCHC 32.7 g/dL (31.0-37.0); MCV 101.6 fL (80.0-100.0); Macrocytosis Slight; Mean Platelet Volume 7.7; Monocytes # (A) 0.8 k/uL (0-1.0); Monocytes % (A) 6 %; Neutrophils % (A) 91 %; Platelet Count 149 k/uL (150-450); RBC 3.33 m/uL (4.30-5.90); RDW 14.9 % (11.5-15.5); WBC 13.2 k/uL (3.8-10.6)
[2022-02-27 20:01] LABS: ALT 7 U/L (4-49); AST 33 U/L (17-59); African American GFR (CKD) >90 (>60 ml/min/1.73 sqM); Albumin 3.8 g/dL (3.5-5.0); Alkaline Phosphatase 107 U/L (38-126); Anion Gap 8 mmol/L; Blood Urea Nitrogen 21 mg/dL (9-20); Calcium 8.8 mg/dL (8.4-10.2); Carbon Dioxide 24 mmol/L (22-30); Chloride 103 mmol/L (98-107); Glucose 121 mg/dL (74-99); Non-African American GFR(CKD) >90 (>60 ml/min/1.73 sqM); Potassium 4.1 mmol/L (3.5-5.1); Sodium 135 mmol/L (137-145); Total Bilirubin 1.6 mg/dL (0.2-1.3); Total Protein 6.5 g/dL (6.3-8.2)
--- NOTE | 2022-02-27 20:17 | XR ---
EXAMINATION TYPE: XR chest 2V DATE OF EXAM: 02/27/2022 7:51 PM COMPARISON: Multiple radiographs, with the most recent on 02/19/2018. TECHNIQUE: XR chest 2V Frontal and lateral views of the chest. CLINICAL INDICATION:Male, 89 years old with history of altered mental status; FINDINGS: Lungs/Pleura: Blunting of the right costophrenic angle. No evidence of pneumothorax or focal consolid ation. Pulmonary vascularity: Unremarkable. Heart/mediastinum: Cardiomediastinal silhouette is enlarged and stable. Musculoskeletal: No acute osseous pathology. Midline sternotomy wires are noted and stable. IMPRESSION: 1. Right pleural effusion which is new from prior. 2. Similar cardiomegaly.
--- NOTE | 2022-02-27 20:54 | CT ---
EXAMINATION TYPE: CT brain wo con CT DLP: 1166.4 mGycm, Automated exposure control for dose reduction was used. DATE OF EXAM: 02/27/2022 8:23 PM COMPARISON: CT brain 03/10/2019 CLINICAL INDICATION:Male, 89 years old with history of Altered mental status, TECHNIQUE: Brain: Multiple axial CT images of the brain were obtained without IV contrast. FINDINGS: Brain: Extra-axial spaces: No abnormal extra-axial fluid collections. Ventricular system: Dilatation in proportion to cerebral atrophy. Cerebral parenchyma: Encephalomalacia of the right occipital lobe, temporal and portions of parietal lobe from prior injury. No acute intraparenchymal hemorrhage or mass effect. The booker-white junction is well differentiated. Scattered hypoattenuating areas are seen within the white matter. Cerebellum: Unremarkable. Mass effect: No evidence of midline shift. Intracranial vasculature: Atherosclerotic calcifications of the intracranial vessels. Soft tissues: Normal. Calvarium/osseous structures: No depressed skull fracture. Paranasal sinuses and mastoid air cells: Mild scattered paranasal sinus disease. Visualized orbits: Bilateral aphakia IMPRESSION: 1. No acute intracranial process. 2. Nonspecific white matter changes, likely secondary to chronic small vessel ischemic disease. 3. Encephalomalacia of the right occipital lobe, temporal and portions of parietal lobe from prior i njury.
[2022-02-27] MEDS ORDERED: HEPARIN SODIUM 1,000 UN/ML (10ML VL) IV PRN (21:31)
[2022-02-27] MEDS ORDERED: NALOXONE 0.4 MG/ML 1 ML VIAL IV PRN (21:32)
[2022-02-27] MEDS ORDERED: cefTRIAXone IN SWFI 1,000 MG/10 ML SYRINGE IVP STA (21:34)
[2022-02-27] MEDS ORDERED: HEPARIN SOD,PORK IN 0.45% NACL 25,000 UNIT in 0.45% NACL 1 250ML.BAG IV SCH (21:45)
[2022-02-27 21:47] LABS: INR 1.3 (<1.2); Partial Thromboplastin Time 28.1 sec (22.0-30.0)
[2022-02-28] MEDS ORDERED: HYDROcodone/APAP 5-325MG 1 EACH TAB PO PRN (04:01)
--- NOTE | 2022-02-28 04:04 | P.HPIM ---
History of Present Illness H&P Date: 02/27/22 Patient is an 89-year-old male with an extensive PMH including bilateral AKA, hypertension, hyperlipidemia, coronary artery disease status post CABG, basal cell carcinoma of the scalp status post skin grafting, who was brought into the emergency room by his family members due to concerns of altered mentation. The patient was reportedly at his baseline with his oriented and able to communicate until this morning when the family found him to be confused. The patient was slow to respond and history was thereby admitted. He did however report feeling okay and denied any active complaints. She denied expensive abdominal pain, urinary complaints, fever, chills. In the emergency room, laboratory values was remarkable for a UA consistent with UTI, troponin 0.051, and WBC count 13.2 with platelet count 149[address] brain revealed encephalomalacia. Chest x-ray was unremarkable with EKG showing A. fib at 72 bpm with inferior lead Q waves as well as poor R-wave progression. Review of systems: Pertinent positives and negatives as discussed in HPI, a complete review of systems was performed and all other systems are negative. Physical examination: General: Chronically ill-appearing male, no distress, appears at stated age, frail Derm: no unusual rashes/lesions, warm Head: atraumatic, normocephalic, symmetric Eyes: EOMI, no lid lag, anicteric sclera, pupils equal round reactive to light ENT: Nose and ears atraumatic Neck: No cervical lymphadenopathy, trachea midline, supple Mouth: no lip lesion, mucus membranes dry Cardiovascular: S1S2 reg, no murmur, positive dorsalis pedis pulse bilateral, no edema Lungs: CTA bilateral, no rhonchi, no rales, no accessory muscle use Abdominal: soft, nontender to palpation, no guarding Ext: Bilateral AKA, no gross muscle atrophy, no contractures, Neuro: CN II-XI grossly intact, no gross focal neuro deficits Psych: Slow to respond but oriented to person, place, and year Assessment/plan Altered mental status, likely toxic metabolic encephalopathy secondary to UTI -Continue with ceftriaxone -Follow up cultures Thrombocytopenia, may be due to ongoing infection -Monitor for now Newly diagnosed A. fib -Patient currently on Eliquis reportedly for peripheral vascular disease Elevated troponin, likely due to ongoing A. fib -Trend for now -Cardiology consulted -Cardiac monitoring DVT prophylaxis -Eliquis The patient is admitted with an anticipated greater than 2 midnight stay for evaluation of UTI CODE STATUS: Full Code Discussed with: Patient Anticipated discharge date: 2-[address]: Home Past Medical History Past Medical History: Cancer, Hyperlipidemia, Hypertension, Myocardial Infarction ([place]) Additional Past Medical History / Comment(s): BASAL CELL SKIN CANCER, PARKINSONS, CONSTIPATION, RT FOOT WOUND(HX OF OSTEOMYELITIS -GOES TO THE [facility] EVERY WEDNESDAY), Nadia KUMAR 2018 Last Myocardial Infarction Date:: 1991 History of Any Multi-Drug Resistant Organisms: MRSA Date of last positivie culture/infection: 03/03/16 MDRO Source:: right leg Past Surgical History: Coronary Bypass/CABG, Heart Catheterization With Stent, Tonsillectomy Additional Past Surgical History / Comment(s): " 4 VESSEL CABG 23 OR 24 YEARS AGO"CATARACTS,SEVERAL HEART CATHS," X12 STENTS", nadia KUMAR Past Anesthesia/Blood Transfusion Reactions: No Reported Reaction Date of Last Stent Placement:: 2010 Past Psychological History: No Psychological Hx Reported Additional Psychological History / Comment(s): lives in the family home, (has 1 pet cat).-HAS 2 STEPS TO GET INTO HOME AND HOME IS A SINGLE LEVEL. GETS VISITING NURSES X1 WEEK, has cane/waler,scooter,w/c lift chair and built in shower chair. No recent travel, served in the [employer]. Retired used to work in purchasing. No new animal exposures Smoking Status: Never smoker Past Alcohol Use History: None Reported Past Drug Use History: None Reported - Past Family History Father History Unknown: Yes Family Medical History: Myocardial Infarction ([place]) Mother Family Medical History: Cancer, Diabetes Mellitus Additional Family Medical History / Comment(s): "stomach problems and had bowel sx-"part of intestines removed" Medications and Allergies Home Medications Medication Instructions Recorded Confirmed Type carvediloL [Coreg] 6.25 mg PO BID 11/30/16 02/27/22 History Aspirin 81 mg PO DAILY chew 12/02/16 02/27/22 Rx Docusate [Colace] 100 mg PO HS 02/19/19 02/27/22 History Multivitamins, Thera [Multivitamin 1 tab PO DAILY 02/19/19 02/27/22 History (formulary)] Acitretin [Soriatane] 10 mg PO DAILY 02/27/22 02/27/22 History Apixaban [Eliquis] 2.5 mg PO BID 02/27/22 02/27/22 History Betamethasone Dipropionate 1 applic TOPICAL BID 02/27/22 02/27/22 History [Diprolene AF 0.05% Cream] Carbidopa-Levodopa ER 50-200Mg 1 tab PO BID 02/27/22 02/27/22 History [Sinemet CR 50-200 mg] Ferrous Sulfate [Feosol] 325 mg PO Q48H 02/27/22 02/27/22 History Furosemide [Lasix] 20 mg PO BID 02/27/22 02/27/22 History HYDROcodone/APAP 5-325MG [[place] 1 tab PO TID PRN 02/27/22 02/27/22 History 5-325] Ipratropium-Albuterol Nebulize 3 ml INHALATION RT-BID 02/27/22 02/27/22 History [Duoneb 0.5 mg-3 mg/3 ml Soln] Isosorbide Mononitrate ER [Imdur] 30 mg PO DAILY 02/27/22 02/27/22 History Nystatin 100,000Unit/gm Cream 1 applic TOPICAL BID 02/27/22 02/27/22 History [Mycostatin Cream] Potassium Chloride ER [K-Dur 20] 20 meq PO BID 02/27/22 02/27/22 History Rosuvastatin Calcium [Crestor] 5 mg PO HS 02/27/22 02/27/22 History Tamsulosin [Flomax] 0.4 mg PO HS 02/27/22 02/27/22 History Vitamin D3(Unknown) 1 tab PO DAILY 02/27/22 02/27/22 History hydrOXYzine HCL [Atarax] 25 mg PO HS PRN 02/27/22 02/27/22 History Allergies Allergy/AdvReac Type Severity Reaction Status Date / Time Sulfa (Sulfonamide Allergy Rash/Hives Verified 02/27/22 21:30 Antibiotics) amoxicillin [From Augmentin] AdvReac Caused Verified 02/27/22 21:30 yeast infection ciprofloxacin [From Cipro] AdvReac Caused Verified 02/27/22 21:30 yeast infection clavulanic acid AdvReac Caused Verified 02/27/22 21:30 [From Augmentin] yeast infection fluconazole AdvReac Caused Verified 02/27/22 21:30 yeast infection Physical Exam Vitals: Vital Signs Temp Pulse Pulse Resp BP BP Pulse Ox 02/27/22 23:15 99.3 F 73 18 121/54 96 02/27/22 22:51 97.8 F 82 20 122/78 96 02/27/22 21:00 77 18 116/78 96 02/27/22 20:00 82 15 112/72 98 02/27/22 19:15 98.2 F 83 80 18 112/72 96 Intake and Output 02/27/22 02/27/22 02/28/22 14:59 22:59 06:59 Other: Weight 65.317 kg 65.317 kg Results CBC & Chem 7: 02/27/22 19:38 02/27/22 19:38 Labs: Abnormal Lab Results - Last 24 Hours (Table) 02/27/22 02/27/22 02/27/22 Range/Units 19:29 19:38 19:38 WBC 13.2 H (3.8-10.6) k/uL RBC 3.33 L (4.30-5.90) m/uL Hgb 11.1 L (13.0-17.5) gm/dL Hct 33.8 L (39.0-53.0) % MCV 101.6 H (80.0-100.0) fL Plt Count 149 L (150-450) k/uL Neutrophils # 12.0 H (1.3-7.7) k/uL Lymphocytes # 0.3 L (1.0-4.8) k/uL PT (9.0-12.0) sec INR (<1.2) Sodium 135 L (137-145) mmol/L BUN 21 H (9-20) mg/dL Creatinine 0.37 L (0.66-1.25) mg/dL Glucose 121 H (74-99) mg/dL Total Bilirubin 1.6 H (0.2-1.3) mg/dL Troponin I (0.000-0.034) ng/mL Urine Protein 1+ H (Negative) Urine Blood Moderate H (Negative) Ur Leukocyte Esterase Large H (Negative) Urine RBC 25 H (0-5) /hpf Urine WBC >182 H (0-5) /hpf Urine Bacteria Many H (None) /hpf Hyaline Casts 6 H (0-2) /lpf Urine Mucus Many H (None) /hpf 02/27/22 02/27/22 02/27/22 Range/Units 19:38 21:17 22:38 WBC (3.8-10.6) k/uL RBC (4.30-5.90) m/uL Hgb (13.0-17.5) gm/dL Hct (39.0-53.0) % MCV (80.0-100.0) fL Plt Count (150-450) k/uL Neutrophils # (1.3-7.7) k/uL Lymphocytes # (1.0-4.8) k/uL PT 14.0 H (9.0-12.0) sec INR 1.3 H (<1.2) Sodium (137-145) mmol/L BUN (9-20) mg/dL Creatinine (0.66-1.25) mg/dL Glucose (74-99) mg/dL Total Bilirubin (0.2-1.3) mg/dL Troponin I 0.051 H* 0.056 H* (0.000-0.034) ng/mL Urine Protein (Negative) Urine Blood (Negative) Ur Leukocyte Esterase (Negative) Urine RBC (0-5) /hpf Urine WBC (0-5) /hpf Urine Bacteria (None) /hpf Hyaline Casts (0-2) /lpf Urine Mucus (None) /hpf Microbiology - Last 24 Hours (Table) 02/27/22 19:29 Urine Culture - Preliminary Urine,Clean Catch Thrombosis Risk Factor Assmnt - Choose All That Apply Any of the Below Risk Factors Present?: Yes Each Factor Represents 1 point: Medical pt on bed rest, Obesity (BMI >25) Each Risk Factor Represents 2 Points: Patient confined to bed Each Risk Factor Represents 3 Points: Age 75 years or older Other congenital or acquired thrombophilia - If yes, enter type in comment: No Thrombosis Risk Factor Assessment Total Risk Factor Score: 7 Thrombosis Risk Factor Assessment Level: High Risk
[2022-02-28 04:31] LABS: Basophils # (A) 0.1 k/uL (0-0.2); Basophils % (A) 0 %; Eosinophils % (A) 0 %; HCT 32.6 % (39.0-53.0); HGB 10.7 gm/dL (13.0-17.5); Lymphocytes # (A) 0.3 k/uL (1.0-4.8); Lymphocytes % (A) 2 %; MCH 33.6 pg (25.0-35.0); MCV 101.8 fL (80.0-100.0); Macrocytosis Slight; Mean Platelet Volume 7.8; Monocytes # (A) 1.1 k/uL (0-1.0); Monocytes % (A) 6 %; Neutrophils % (A) 91 %; Platelet Count 145 k/uL (150-450); WBC 16.5 k/uL (3.8-10.6)
[2022-02-28 04:42] LABS: INR 1.4 (<1.2); Partial Thromboplastin Time 28.9 sec (22.0-30.0); Prothrombin Time 14.7 sec (9.0-12.0)
[2022-02-28 04:43] LABS: African American GFR (CKD) >90 (>60 ml/min/1.73 sqM); Anion Gap 7 mmol/L; Blood Urea Nitrogen 21 mg/dL (9-20); Calcium 8.7 mg/dL (8.4-10.2); Carbon Dioxide 23 mmol/L (22-30); Chloride 105 mmol/L (98-107); Glucose 116 mg/dL (74-99); Non-African American GFR(CKD) >90 (>60 ml/min/1.73 sqM); Potassium 4.2 mmol/L (3.5-5.1); Sodium 135 mmol/L (137-145)
[2022-02-28] MEDS: FUROSEMIDE 20 MG TAB PO SCH ×2 (08:33→16:13)
[2022-02-28] MEDS ORDERED: carvediloL 6.25 MG TAB PO SCH (09:00)
[2022-02-28] MEDS ORDERED: ISOSORBIDE MONONITRATE ER 30 MG TAB.ER.24H PO SCH (09:00)
[2022-02-28] MEDS ORDERED: ASPIRIN 81 MG PO SCH (09:00)
[2022-02-28] MEDS ORDERED: CARBIDOPA-LEVODOPA ER 50-200MG 1 EACH TABLET.ER PO SCH (09:00)
[2022-02-28] MEDS ORDERED: APIXABAN 2.5 MG TABLET PO SCH (09:00)
[2022-02-28] MEDS ORDERED: FAMOTIDINE 20 MG TAB PO SCH (09:00)
--- NOTE | 2022-02-28 10:54 | P.CRDCN ---
History of Present Illness Consult date: 02/28/22 History of present illness: History of Present Illness: The patient is an 89-year-old male with a known history of CAD, post CABG, history of PAD, status post bilateral AKA who presents with change in mental status and evidence of UTI. He was noted to be in atrial fibrillation. On reviewing the old records patient had prior history of paroxysmal atrial fibrillation. The patient is awake and answering some questions but appears to be confused. He denies any chest discomfort, dizziness or palpitations. He is in atrial fibrillation with controlled ventricular response. He has been anticoagulated in the past. There is no evidence of tachycardia arrhythmia or significant pauses. It is unclear if the patient atrial fibrillation has been going on for a while. On presentation his troponin are mildly elevated but flat. Medications: He continues to be on Flomax, Crestor, Coreg 6.5 mg twice a day, aspirin, Lasix, isosorbide, Sinemet, potassium, Eliquis 2.5 mg twice a day Review of Systems: Very limited, could not obtain a good review of system Physical Examination: 89-year-old female alert confused no apparent distress ,Blood pressure 137/60, Heart rate 80 Head: Normocephalic. Rash noted on the scalp Eyes: Sclerae nonicteric. Neck: Good carotid upstroke, no bruit, no jugular venous distention. Lungs: Clear to auscultation. Heart: Irregular rate and rhythm, S1-S2, no S3, no rub. systolic murmur. Abdomen: Soft nontender, positive bowel sounds no organomegaly. Extremities: Post bilateral AKA Labs: BUN 21, creatinine 8.35, potassium 4.2. Hemoglobin 10.7. White blood cells 16.5. Troponin 0.051, 0.056, 0.069 EKG: Atrial fibrillation with left axis deviation probable inferior wall myocardial infarction, nonspecific ST-T wave changes Impression: 1. Change in mental status with UTI 2. History of CAD status post CABG 3. Atrial fibrillation of unknown duration, appears to be persistent. The patient had paroxysmal atrial ablation in the past, anticoagulated 4. Peripheral vascular disease status post bilateral AKA 5. History of hyperlipidemia Plan: 1. Continue present therapy with anticoagulation 2. Obtain an echocardiogram with Doppler 3. The troponin elevation appears to be related to his UTI, no evidence of acute coronary syndrome. 4. Depending on his progress further recommendations will be made 5. Thank you for this consult we will follow with you Past Medical History Past Medical History: Cancer, Hyperlipidemia, Hypertension, Myocardial Infarction ([place]) Additional Past Medical History / Comment(s): BASAL CELL SKIN CANCER, PARKINSONS, CONSTIPATION, RT FOOT WOUND(HX OF OSTEOMYELITIS -GOES TO THE [facility] EVERY WEDNESDAY), Nadia KUMAR 2018 Last Myocardial Infarction Date:: 1991 History of Any Multi-Drug Resistant Organisms: MRSA Date of last positivie culture/infection: 03/03/16 MDRO Source:: right leg Past Surgical History: Coronary Bypass/CABG, Heart Catheterization With Stent, Tonsillectomy Additional Past Surgical History / Comment(s): " 4 VESSEL CABG 23 OR 24 YEARS AGO"CATARACTS,SEVERAL HEART CATHS," X12 STENTS", nadia KUMAR Past Anesthesia/Blood Transfusion Reactions: No Reported Reaction Date of Last Stent Placement:: 2010 Past Psychological History: No Psychological Hx Reported Additional Psychological History / Comment(s): lives in the family home, (has 1 pet cat).-HAS 2 STEPS TO GET INTO HOME AND HOME IS A SINGLE LEVEL. GETS VISITING NURSES X1 WEEK, has cane/waler,scooter,w/c lift chair and built in shower chair. No recent travel, served in the [employer]. Retired used to work in purchasing. No new animal exposures Smoking Status: Never smoker Past Alcohol Use History: None Reported Past Drug Use History: None Reported - Past Family History Father History Unknown: Yes Family Medical History: Myocardial Infarction ([place]) Mother Family Medical History: Cancer, Diabetes Mellitus Additional Family Medical History / Comment(s): "stomach problems and had bowel sx-"part of intestines removed" Medications and Allergies Home Medications Medication Instructions Recorded Confirmed Type carvediloL [Coreg] 6.25 mg PO BID 11/30/16 02/27/22 History Aspirin 81 mg PO DAILY chew 12/02/16 02/27/22 Rx Docusate [Colace] 100 mg PO HS 02/19/19 02/27/22 History Multivitamins, Thera [Multivitamin 1 tab PO DAILY 02/19/19 02/27/22 History (formulary)] Acitretin [Soriatane] 10 mg PO DAILY 02/27/22 02/27/22 History Apixaban [Eliquis] 2.5 mg PO BID 02/27/22 02/27/22 History Betamethasone Dipropionate 1 applic TOPICAL BID 02/27/22 02/27/22 History [Diprolene AF 0.05% Cream] Carbidopa-Levodopa ER 50-200Mg 1 tab PO BID 02/27/22 02/27/22 History [Sinemet CR 50-200 mg] Ferrous Sulfate [Feosol] 325 mg PO Q48H 02/27/22 02/27/22 History Furosemide [Lasix] 20 mg PO BID 02/27/22 02/27/22 History HYDROcodone/APAP 5-325MG [[place] 1 tab PO TID PRN 02/27/22 02/27/22 History 5-325] Ipratropium-Albuterol Nebulize 3 ml INHALATION RT-BID 02/27/22 02/27/22 History [Duoneb 0.5 mg-3 mg/3 ml Soln] Isosorbide Mononitrate ER [Imdur] 30 mg PO DAILY 02/27/22 02/27/22 History Nystatin 100,000Unit/gm Cream 1 applic TOPICAL BID 02/27/22 02/27/22 History [Mycostatin Cream] Potassium Chloride ER [K-Dur 20] 20 meq PO BID 02/27/22 02/27/22 History Rosuvastatin Calcium [Crestor] 5 mg PO HS 02/27/22 02/27/22 History Tamsulosin [Flomax] 0.4 mg PO HS 02/27/22 02/27/22 History Vitamin D3(Unknown) 1 tab PO DAILY 02/27/22 02/27/22 History hydrOXYzine HCL [Atarax] 25 mg PO HS PRN 02/27/22 02/27/22 History Allergies Allergy/AdvReac Type Severity Reaction Status Date / Time Sulfa (Sulfonamide Allergy Rash/Hives Verified 02/27/22 21:30 Antibiotics) amoxicillin [From Augmentin] AdvReac Caused Verified 02/27/22 21:30 yeast infection ciprofloxacin [From Cipro] AdvReac Caused Verified 02/27/22 21:30 yeast infection clavulanic acid AdvReac Caused Verified 02/27/22 21:30 [From Augmentin] yeast infection fluconazole AdvReac Caused Verified 02/27/22 21:30 yeast infection Physical Exam Vitals: Vital Signs Temp Pulse Pulse Resp BP BP Pulse Ox 02/28/22 08:28 97.4 F L 84 16 137/60 98 02/28/22 03:58 99.3 F 78 115/62 97 02/27/22 23:15 99.3 F 73 18 121/54 96 02/27/22 22:51 97.8 F 82 20 122/78 96 02/27/22 21:00 77 18 116/78 96 02/27/22 20:00 82 15 112/72 98 02/27/22 19:15 98.2 F 83 80 18 112/72 96 Intake and Output 02/27/22 02/28/22 02/28/22 22:59 06:59 14:59 Intake Total 425 Output Total 150 225 Balance -150 200 Intake: Intake, IV Titration 375 Amount Sodium Chloride 0.9% 1, 325 000 ml @ 75 mls/hr IV . [id number] ONE Rx#:[id number] cefTRIAXone 1 gm In 50 Sodium Chloride 0.9% 50 ml @ 100 mls/hr IVPB Q12H CAROLYN Rx#:[id number] Oral 50 Output: Urine 150 225 Other: Voiding Method External Catheter External Catheter Weight 65.317 kg 65.317 kg Results 02/28/22 03:47 02/28/22 03:47 Cardiac Enzymes 02/27/22 02/27/22 02/27/22 Range/Units 19:38 19:38 22:38 AST 33 (17-59) U/L Troponin I 0.051 H* 0.056 H* (0.000-0.034) ng/mL 02/28/22 Range/Units 01:21 AST (17-59) U/L Troponin I 0.069 H* (0.000-0.034) ng/mL Coagulation 02/27/22 02/28/22 Range/Units 21:17 03:47 PT 14.0 H 14.7 H (9.0-12.0) sec APTT 28.1 28.9 (22.0-30.0) sec CBC 02/27/22 02/28/22 Range/Units 19:38 03:47 WBC 13.2 H 16.5 H (3.8-10.6) k/uL RBC 3.33 L 3.20 L (4.30-5.90) m/uL Hgb 11.1 L 10.7 L (13.0-17.5) gm/dL Hct 33.8 L 32.6 L (39.0-53.0) % Plt Count 149 L 145 L (150-450) k/uL Comprehensive Metabolic Panel 02/27/22 02/28/22 Range/Units 19:38 03:47 Sodium 135 L 135 L (137-145) mmol/L Potassium 4.1 4.2 (3.5-5.1) mmol/L Chloride 103 105 (98-107) mmol/L Carbon Dioxide 24 23 (22-30) mmol/L BUN 21 H 21 H (9-20) mg/dL Creatinine 0.37 L 0.35 L (0.66-1.25) mg/dL Glucose 121 H 116 H (74-99) mg/dL Calcium 8.8 8.7 (8.4-10.2) mg/dL AST 33 (17-59) U/L ALT 7 (4-49) U/L Alkaline Phosphatase 107 (38-126) U/L Total Protein 6.5 (6.3-8.2) g/dL Albumin 3.8 (3.5-5.0) g/dL Current Medications Generic Name Dose Route Start Last Admin Trade Name Freq PRN Reason Stop Dose Admin Hydrocodone Bitart/Acetaminophen 1 each 02/28/22 04:01 02/28/22 08:38 Hydrocodone/Apap 5-325mg 1 Each Tab PO 1 each TID PRN Administration Pain Apixaban 2.5 mg 02/28/22 09:00 02/28/22 08:33 Apixaban 2.5 Mg Tablet PO 2.5 mg BID CAROLYN Administration Protocol Aspirin 81 mg 02/28/22 09:00 02/28/22 08:33 Aspirin 81 Mg PO 81 mg DAILY CAROLYN Administration Atorvastatin Calcium 10 mg 02/28/22 21:00 Atorvastatin 10 Mg Tab PO HS CAROLYN Carbidopa/Levodopa 1 each 02/28/22 09:00 02/28/22 08:34 Carbidopa-Levodopa Er 50-200mg 1 Each Tablet.Er PO 1 each BID CAROLYN Administration Carvedilol 6.25 mg 02/28/22 09:00 02/28/22 08:33 Carvedilol 6.25 Mg Tab PO 6.25 mg BID CAROLYN Administration Famotidine 20 mg 02/28/22 09:00 02/28/22 08:33 Famotidine 20 Mg Tab PO 20 mg BID CAROLYN Administration Furosemide 20 mg 02/28/22 09:00 02/28/22 08:33 Furosemide 20 Mg Tab PO 20 mg BID@0900,1600 CAROLYN Administration Heparin Sodium (Porcine) 0 unit 02/27/22 21:31 Heparin Sodium 1,000 Un/Ml (10ml Vl) IV PER PROTOCOL PRN Low PTT Protocol Ceftriaxone Sodium 1 gm/ 50 mls @ 100 mls/hr 02/28/22 10:00 02/28/22 08:33 Sodium Chloride IVPB 100 mls/hr Q12H CAROLYN Administration Protocol Isosorbide Mononitrate 30 mg 02/28/22 09:00 02/28/22 08:33 Isosorbide Mononitrate Er 30 Mg Tab.Er.24h PO 30 mg DAILY CAROLYN Administration Naloxone HCl 0.2 mg 02/27/22 21:32 Naloxone 0.4 Mg/Ml 1 Ml Vial IV Q2M PRN Opioid Reversal Tamsulosin HCl 0.4 mg 02/28/22 21:00 Tamsulosin 0.4 Mg Cap.Er.24h PO HS [facility] Intake and Output 02/27/22 02/28/22 02/28/22 22:59 06:59 14:59 Intake Total 425 Output Total 150 225 Balance -150 200 Intake: Intake, IV Titration 375 Amount Sodium Chloride 0.9% 1, 325 000 ml @ 75 mls/hr IV . [id number] ONE Rx#:[id number] cefTRIAXone 1 gm In 50 Sodium Chloride 0.9% 50 ml @ 100 mls/hr IVPB Q12H CAROLYN Rx#:[id number] Oral 50 Output: Urine 150 225 Other: Voiding Method External Catheter External Catheter Weight 65.317 kg 65.317 kg 02/28/22 03:47 02/28/22 03:47
[2022-02-28 11:34] VITALS: BP 108/49; PULSE 61; RESP 18; TEMP 98.4
[2022-02-28 11:53] VITALS: BMI 18.4
--- NOTE | 2022-02-28 13:30 | CA ---
Transthoracic Echo Report Name: Ike Maharaj Age: 89 Gender: M : 1930 Exam Date: 02/28/2022 11:45 Exam Location: [place] [facility] Ht (in): 74 Wt (lb): 143 Ordering Physician: Neil Burnett MD ([id number]) Attending/Referring Phys: Cecil Mullins DO [employer] Prema Thompson RDCS Procedure CPT: Indications: CAD Cardiac Hx: Technical Quality: Technically difficult study Contrast 1: Lumason Total Dose (mL): 3 Contrast 2: Total Dose (mL): MEASUREMENTS (Male / Female) Normal Values 2D ECHO LV Diastolic Diameter PLAX 3.5 cm 4.2 - 5.9 / 3.9 - 5.3 cm LV Systolic Diameter PLAX 2.7 cm IVS Diastolic Thickness 1.6 cm 0.6 - 1.0 / 0.6 - 0.9 cm LVPW Diastolic Thickness 1.6 cm 0.6 - 1.0 / 0.6 - 0.9 cm LV Relative Wall Thickness 0.9 RV Internal Dim ED PLAX 2.8 cm LA Volume 105.0 cm??? 18 - 58 / 22 - 52 cm??? M-MODE Aortic Root Diameter MM 4.6 cm AV Cusp Separation MM 0.8 cm DOPPLER AV Peak Velocity 201.3 cm/s AV Peak Gradient 16.2 mmHg AV Mean Velocity 147.2 cm/s AV Mean Gradient 9.5 mmHg AV Velocity Time Integral 43.7 cm LVOT Peak Velocity 55.2 cm/s LVOT Peak Gradient 1.2 mmHg MV Area PHT 4.0 cm??? TR Peak Velocity 278.3 cm/s TR Peak Gradient 31.0 mmHg Right Ventricular Systolic Press 34.0 mmHg FINDINGS Left Ventricle Moderately increased left ventricular wall thickness. Left ventricular ejection fraction is estimated at 25-30 %. The mid anterior, the apex and anteroseptal wall are akinetic the rest of the cueto are hypokinetic. Right Ventricle Normal right ventricular size. Mild pulmonary hypertension. Right Atrium Right atrium not well visualized. Left Atrium Severely increased left atrial volume. No evidence for an atrial septal defect. Mitral Valve Moderate mitral annular calcification. Moderate mitral regurgitation. Mitral valve thickened. Aortic Valve Trace to mild aortic regurgitation. Mild aortic stenosis with a peak gradient of 16 mmHg and a mean gradient of 10 mmHg. Underestimated Aortic valve stenosis severity due to decreased systolic function. Tricuspid Valve Mild tricuspid regurgitation. The tricuspid valve appears to be normal Pulmonic Valve Trace pulmonic regurgitation. Not well visualized Pericardium No pericardial effusion. Aorta Normal size aortic root and proximal ascending aorta. CONCLUSIONS 1. Severely impaired systolic function with segmental wall motion abnormality 2. Moderate mitral regurgitation 3. Mild aortic stenosis 4. Mild tricuspid regurgitation with normal right-sided pressure. Previewed by: Dr. Neil Burnett MD (Electronically Signed) Final Date: 28 February 2022 13:29
--- NOTE | 2022-02-28 15:06 | P.DS ---
Providers Date of admission: 02/27/22 21:32 Expected date of discharge: 02/28/22 Attending physician: Kaiser Crump MD Consults: 02/27/22 21:32 Consult Physician Urgent Consulting Provider: Neil Burnett Consult Reason/Comments: a fib, pleural effusion, elevated trop Do you want consulting provider notified?: Yes Primary care physician: Alfredo Montez MD Hospital Course: Toxic metabolic encephalopathy Complicated UTI Thrombocytopenia, Paroxysmal A. fib Elevated troponin, likely due to ongoing A. fib Chronic Systolic Heart Failure, EF 25-30% Patient is an 89-year-old male with an extensive PMH including bilateral AKA, hypertension, hyperlipidemia, coronary artery disease status post CABG, basal cell carcinoma of the scalp status post skin grafting, who was brought into the emergency room by his family members due to concerns of altered mentation. In the emergency room, laboratory values was remarkable for a UA consistent with UTI, troponin 0.051, and WBC count 13.2 with platelet count 149[address] brain revealed encephalomalacia. Chest x-ray was unremarkable with EKG showing A. fib at 72 bpm with inferior lead Q waves as well as poor R-wave progression. By the following day patients mental status improved to baseline. He was discharged home with 6 additional days of antibiotics and PCP f/u. He was also seen by cardiology for A Fib, and his echo noted chronically reduced EF of 25-30%. No changes to home meds. I did request patient see urology next week for probable BPH given PVR of 240cc, but no creatinine bump. Gen: awake, alert HEENT: normocephalic, atraumatic, good hearing acuity, moist mucous membranes Resp: good air exchange, breathing comfortably with no accessory muscle use CVS: good distal perfusion x 4, GI: soft, NTTP, ND : no SPT, no CVAT, valente catheter not present MSK: no pitting edema, no clubbing Neuro: non-focal, moving all extremities Psych: cooperative, euthymic mood Patient Condition at Discharge: Good Plan - Discharge Summary Discharge Rx Participant: No New Discharge Prescriptions: New Cefdinir [Omnicef] 300 mg PO Q12HR #12 capsule Continue carvediloL [Coreg] 6.25 mg PO BID Aspirin 81 mg PO DAILY chew Multivitamins, Thera [Multivitamin (formulary)] 1 tab PO DAILY Docusate [Colace] 100 mg PO HS hydrOXYzine HCL [Atarax] 25 mg PO HS PRN PRN Reason: Itching Ipratropium-Albuterol Nebulize [Duoneb 0.5 mg-3 mg/3 ml Soln] 3 ml INHALATION RT-BID Betamethasone Dipropionate [Diprolene AF 0.05% Cream] 1 applic TOPICAL BID Tamsulosin [Flomax] 0.4 mg PO HS Potassium Chloride ER [K-Dur 20] 20 meq PO BID Isosorbide Mononitrate ER [Imdur] 30 mg PO DAILY Vitamin D3(Unknown) 1 tab PO DAILY Acitretin [Soriatane] 10 mg PO DAILY Nystatin 100,000Unit/gm Cream [Mycostatin Cream] 1 applic TOPICAL BID HYDROcodone/APAP 5-325MG [[place] 5-325] 1 tab PO TID PRN PRN Reason: Pain Carbidopa-Levodopa ER 50-200Mg [Sinemet CR 50-200 mg] 1 tab PO BID Apixaban [Eliquis] 2.5 mg PO BID Rosuvastatin Calcium [Crestor] 5 mg PO HS Furosemide [Lasix] 20 mg PO BID Ferrous Sulfate [Iron (65 MG Elemental)] 325 mg PO Q48H Discharge Medication List carvediloL [Coreg] 6.25 mg PO BID 11/30/16 [History] Aspirin 81 mg PO DAILY chew 12/02/16 [Rx] Docusate [Colace] 100 mg PO HS 02/19/19 [History] Multivitamins, Thera [Multivitamin (formulary)] 1 tab PO DAILY 02/19/19 [History] Acitretin [Soriatane] 10 mg PO DAILY 02/27/22 [History] Apixaban [Eliquis] 2.5 mg PO BID 02/27/22 [History] Betamethasone Dipropionate [Diprolene AF 0.05% Cream] 1 applic TOPICAL BID 02/27/22 [History] Carbidopa-Levodopa ER 50-200Mg [Sinemet CR 50-200 mg] 1 tab PO BID 02/27/22 [History] Ferrous Sulfate [Iron (65 MG Elemental)] 325 mg PO Q48H 02/27/22 [History] Furosemide [Lasix] 20 mg PO BID 02/27/22 [History] HYDROcodone/APAP 5-325MG [[place] 5-325] 1 tab PO TID PRN 02/27/22 [History] Ipratropium-Albuterol Nebulize [Duoneb 0.5 mg-3 mg/3 ml Soln] 3 ml INHALATION RT-BID 02/27/22 [History] Isosorbide Mononitrate ER [Imdur] 30 mg PO DAILY 02/27/22 [History] Nystatin 100,000Unit/gm Cream [Mycostatin Cream] 1 applic TOPICAL BID 02/27/22 [History] Potassium Chloride ER [K-Dur 20] 20 meq PO BID 02/27/22 [History] Rosuvastatin Calcium [Crestor] 5 mg PO HS 02/27/22 [History] Tamsulosin [Flomax] 0.4 mg PO HS 02/27/22 [History] Vitamin D3(Unknown) 1 tab PO DAILY 02/27/22 [History] hydrOXYzine HCL [Atarax] 25 mg PO HS PRN 02/27/22 [History] Cefdinir [Omnicef] 300 mg PO Q12HR #12 capsule 02/28/22 [Rx] Follow up Appointment(s)/Referral(s): Alfredo Montez MD [Primary Care Provider] - 1-2 days (Offices are closed. Please call for a follow up appointment date and time.) Patient Instructions/Handouts: Urinary Tract Infection in Older Adults (DC) Discharge Disposition: HOME SELF-CARE
[2022-02-28] MEDS ORDERED: TAMSULOSIN 0.4 MG CAP.ER.24H PO SCH (21:00)
[2022-02-28] MEDS ORDERED: ATORVASTATIN 10 MG TAB PO SCH (21:00)
== END 2022-02-28 17:59 | disposition home or self-care (01) | DRG 689 ==
LOC: EC 19:12 → 3SCARD 21:32
PROVIDERS: ADMIT Internal Medicine; ATTEND Internal Medicine
DX: N39.0 Urinary tract infection, site not specified (principal); G92.8 Other toxic encephalopathy; I50.22 Chronic systolic (congestive) heart failure; I11.0 Hypertensive heart disease with heart failure; D69.6 Thrombocytopenia, unspecified; E78.5 Hyperlipidemia, unspecified; G20 Parkinson's disease; G93.89 Other specified disorders of brain; R79.89 Other specified abnormal findings of blood chemistry; I25.10 Atherosclerotic heart disease of native coronary artery without angina pectoris; I25.2 Old myocardial infarction; I48.0 Paroxysmal atrial fibrillation; B96.89 Other specified bacterial agents as the cause of diseases classified elsewhere; I27.20 Pulmonary hypertension, unspecified; I08.3 Combined rheumatic disorders of mitral, aortic and tricuspid valves; I37.1 Nonrheumatic pulmonary valve insufficiency; I73.9 Peripheral vascular disease, unspecified; L98.9 Disorder of the skin and subcutaneous tissue, unspecified; N40.0 Benign prostatic hyperplasia without lower urinary tract symptoms; Z79.01 Long term (current) use of anticoagulants; Z79.02 Long term (current) use of antithrombotics/antiplatelets; Z79.82 Long term (current) use of aspirin; Z79.899 Other long term (current) drug therapy; Z82.49 Family history of ischemic heart disease and other diseases of the circulatory system; Z83.3 Family history of diabetes mellitus; Z85.828 Personal history of other malignant neoplasm of skin; Z86.73 Personal history of transient ischemic attack (TIA), and cerebral infarction without residual deficits; Z89.611 Acquired absence of right leg above knee; Z89.612 Acquired absence of left leg above knee; Z95.1 Presence of aortocoronary bypass graft; Z88.2 Allergy status to sulfonamides; Z88.1 Allergy status to other antibiotic agents; Z88.0 Allergy status to penicillin; Z86.14 Personal history of Methicillin resistant Staphylococcus aureus infection; Z98.42 Cataract extraction status, left eye; Z98.41 Cataract extraction status, right eye
CPT/HCPCS: 36415; 70450; 71046; 80048; 80053; 81001; 84484; 85025; 85610; 85730; 87077; 87086; 87186; 93005; 93306; 94760; 96361; 96365; 99285

== ENCOUNTER 2022-05-15 15:02 | Inpatient (IN) | payer MEDICARE, BC ==
[2022-05-15] MEDS ORDERED: SODIUM CHLORIDE 0.9% 500 ML 500 ML IV STA (15:33)
[2022-05-15] MEDS ORDERED: PIPERACILLIN-TAZOBACTAM 3.375 GM in SODIUM CHLORIDE 0.9% 100 ML IVPB STA (15:45)
--- NOTE | 2022-05-15 15:52 | ED ---
General Adult HPI - General Chief complaint: Urogenital Stated complaint: UTI Time Seen by Provider: 05/15/22 15:07 Source: patient, family, EMS Mode of arrival: EMS - History of Present Illness Initial comments: Dictation was produced using [employer] dictation software. please excuse any grammatical, word or spelling errors. Chief Complaint: 89-year-old male with history of ESBL UTI and other multiple comorbidities presents to the ER for IV antibiotics History of Present Illness: Patient is an 89-year-old male multiple comorbidities. History of present illness obtained from at the bedside. Patient is allegedly instructed to come to the emergency department for treatment of urinary tract infection. Patient has history of ESBL. He has been having on and off UTIs for the last 3 months. His urine checked on Wednesday and received a call today from visiting physicians to bring the patient to the emergency department for IV antibiotic treatment. Patient has been admitted to the hospital for IV but antibiotics in the past to treat urinary tract infections. Patient has been feeling weak and confused. Patient has no other complaints at this time. The ROS documented in this emergency department record has been reviewed and confirmed by me. Those systems with pertinent positive or negative responses have been documented in the HPI. All other systems are other negative and/or noncontributory. PHYSICAL EXAM: General Impression: Alert and oriented x3, not in acute distress, frail HEENT: Normocephalic atraumatic, extra-ocular movements intact, pupils equal and reactive to light bilaterally, mucous membranes moist. Cardiovascular: Heart regular rate and rhythm Chest: Able to complete full sentences, no retractions, no tachypnea Abdomen: abdomen soft, non-tender, non-distended, no organomegaly Musculoskeletal: Bilateral lower extremity amputations Motor: no focal deficits noted Neurological: CN II-XII grossly intact, no focal motor or sensory deficits noted Psych: Normal affect and mood ED course: 89-year-old male presents to the emergency Department for urinary tract infection. History of ESBL. As upon arrival are within acceptable limits. Patient not showing any signs of extremity. He is well-appearing. Sepsis unlikely. Buccal pathology results have been reviewed from the past. In February 2022 he had a urine clean catch that showed ESBL sensitive to oral medications. Patient started on Zosyn here. does not have the results of patient's urine studies from [facility]. Laboratory evaluation obtained. No leukocytosis. Hemoglobin stable at 4.3. Metabolic panel is unremarkable. Urinalysis shows 114 white blood cells. Given patient's history of ESBL he will be started on IV antibiotics. The admitted to the hospital with consultation to infectious disease. - Related Data Home Medications Medication Instructions Recorded Confirmed carvediloL [Coreg] 6.25 mg PO BID 11/30/16 05/15/22 Docusate [Colace] 100 mg PO HS 02/19/19 05/15/22 Multivitamins, Thera [Multivitamin 1 tab PO DAILY 02/19/19 05/15/22 (formulary)] Acitretin [Soriatane] 10 mg PO DAILY 02/27/22 05/15/22 Apixaban [Eliquis] 2.5 mg PO BID 02/27/22 05/15/22 Carbidopa-Levodopa ER 50-200Mg 1 tab PO BID 02/27/22 05/15/22 [Sinemet CR 50-200 mg] Ferrous Sulfate [Iron (65 MG 325 mg PO Q48H 02/27/22 05/15/22 Elemental)] Furosemide [Lasix] 20 mg PO BID 02/27/22 05/15/22 HYDROcodone/APAP 5-325MG [[place] 1 tab PO BID PRN 02/27/22 05/15/22 5-325] Isosorbide Mononitrate ER [Imdur] 30 mg PO DAILY 02/27/22 05/15/22 Potassium Chloride ER [K-Dur 20] 20 meq PO BID 02/27/22 05/15/22 Rosuvastatin Calcium [Crestor] 5 mg PO HS 02/27/22 05/15/22 Tamsulosin [Flomax] 0.4 mg PO HS 02/27/22 05/15/22 Cholecalciferol [Vitamin D3 (25 25 mcg PO DAILY 05/15/22 05/15/22 Mcg = 1000 Iu)] HYDROcodone/APAP 5-325MG [[place] 0.5 tab PO HS 05/15/22 05/15/22 5-325] Previous Rx's Medication Instructions Recorded Aspirin 81 mg PO DAILY chew 12/02/16 Allergies Allergy/AdvReac Type Severity Reaction Status Date / Time Sulfa (Sulfonamide Allergy Rash/Hives Verified 05/15/22 16:53 Antibiotics) amoxicillin [From Augmentin] AdvReac Caused Verified 05/15/22 16:53 yeast infection ciprofloxacin [From Cipro] AdvReac Caused Verified 05/15/22 16:53 yeast infection clavulanic acid AdvReac Caused Verified 05/15/22 16:53 [From Augmentin] yeast infection fluconazole AdvReac Caused Verified 05/15/22 16:53 yeast infection Review of Systems ROS Statement: Those systems with pertinent positive or pertinent negative responses have been documented in the HPI. ROS Other: All systems not noted in ROS Statement are negative. Past Medical History Past Medical History: Cancer, Hyperlipidemia, Hypertension, Myocardial Infarctio n ([place]) Additional Past Medical History / Comment(s): BASAL CELL SKIN CANCER, PARKINSONS, CONSTIPATION, RT FOOT WOUND(HX OF OSTEOMYELITIS -GOES TO THE [facility] EVERY WEDNESDAY), [place] KUMAR 2018 Last Myocardial Infarction Date:: 1991 History of Any Multi-Drug Resistant Organisms: ESBL, MRSA Date of last positivie culture/infection: 02/27/22 ESBL E.coli; 03/03/16 MRSA MDRO Source:: ESBL-Urine MRSA- Right Leg Past Surgical History: Coronary Bypass/CABG, Heart Catheterization With Stent, Tonsillectomy Additional Past Surgical History / Comment(s): " 4 VESSEL CABG 23 OR 24 YEARS AGO"CATARACTS,SEVERAL HEART CATHS," X12 STENTS", nadia [place] Past Anesthesia/Blood Transfusion Reactions: No Reported Reaction Date of Last Stent Placement:: 2010 Past Psychological History: No Psychological Hx Reported Smoking Status: Never smoker Past Alcohol Use History: None Reported Past Drug Use History: None Reported - Past Family History Father History Unknown: Yes Family Medical History: Myocardial Infarction ([place]) Mother Family Medical History: Cancer, Diabetes Mellitus Additional Family Medical History / Comment(s): "stomach problems and had bowel sx-"part of intestines removed" Course Vital Signs 05/15/22 15:02 Temperature 98.3 F Pulse Rate 92 Respiratory 18 Rate Blood Pressure 104/77 O2 Sat by Pulse 96 Oximetry Medical Decision Making - Lab Data Result diagrams: 05/15/22 15:51 05/15/22 15:51 Lab Results 05/15/22 05/15/22 05/15/22 Range/Units 15:51 15:51 15:51 WBC 7.0 (3.8-10.6) k/uL RBC 3.65 L (4.30-5.90) m/uL Hgb 12.3 L (13.0-17.5) gm/dL Hct 38.3 L (39.0-53.0) % MCV 105.0 H (80.0-100.0) fL MCH 33.8 (25.0-35.0) pg MCHC 32.2 (31.0-37.0) g/dL RDW 14.6 (11.5-15.5) % Plt Count 189 (150-450) k/uL MPV 7.6 Neutrophils % 83 % Lymphocytes % 7 % Monocytes % 5 % Eosinophils % 3 % Basophils % 0 % Neutrophils # 5.9 (1.3-7.7) k/uL Lymphocytes # 0.5 L (1.0-4.8) k/uL Monocytes # 0.4 (0-1.0) k/uL Eosinophils # 0.2 (0-0.7) k/uL Basophils # 0.0 (0-0.2) k/uL Hypochromasia Slight Macrocytosis Moderate Sodium 140 (137-145) mmol/L Potassium 4.3 (3.5-5.1) mmol/L Chloride 97 L (98-107) mmol/L Carbon Dioxide 30 (22-30) mmol/L Anion Gap 13 mmol/L BUN 22 H (9-20) mg/dL Creatinine 0.37 L (0.66-1.25) mg/dL Est GFR (CKD-EPI)AfAm >90 (>60 ml/min/1.73 sqM) Est GFR (CKD-EPI)NonAf >90 (>60 ml/min/1.73 sqM) Glucose 111 H (74-99) mg/dL Plasma Lactic Acid [place] 1.3 (0.7-2.0) mmol/L Calcium 9.3 (8.4-10.2) mg/dL Urine Color Urine Appearance (Clear) Urine pH (5.0-8.0) Ur Specific Golden (1.001-1.035) Urine Protein (Negative) Urine Glucose (UA) (Negative) Urine Ketones (Negative) Urine Blood (Negative) Urine Nitrite (Negative) Urine Bilirubin (Negative) Urine Urobilinogen (<2.0) mg/dL Ur Leukocyte Esterase (Negative) Urine RBC (0-5) /hpf Urine WBC (0-5) /hpf Ur Squamous Epith Cells (0-4) /hpf Urine Bacteria (None) /hpf Urine Mucus (None) /hpf 05/15/22 Range/Units 16:34 WBC (3.8-10.6) k/uL RBC (4.30-5.90) m/uL Hgb (13.0-17.5) gm/dL Hct (39.0-53.0) % MCV (80.0-100.0) fL MCH (25.0-35.0) pg MCHC (31.0-37.0) g/dL RDW (11.5-15.5) % Plt Count (150-450) k/uL MPV Neutrophils % % Lymphocytes % % Monocytes % % Eosinophils % % Basophils % % Neutrophils # (1.3-7.7) k/uL Lymphocytes # (1.0-4.8) k/uL Monocytes # (0-1.0) k/uL Eosinophils # (0-0.7) k/uL Basophils # (0-0.2) k/uL Hypochromasia Macrocytosis Sodium (137-145) mmol/L Potassium (3.5-5.1) mmol/L Chloride (98-107) mmol/L Carbon Dioxide (22-30) mmol/L Anion Gap mmol/L BUN (9-20) mg/dL Creatinine (0.66-1.25) mg/dL Est GFR (CKD-EPI)AfAm (>60 ml/min/1.73 sqM) Est GFR (CKD-EPI)NonAf (>60 ml/min/1.73 sqM) Glucose (74-99) mg/dL Plasma Lactic Acid [place]mk[place] (0.7-2.0) mmol/L Calcium (8.4-10.2) mg/dL Urine Color Yellow Urine Appearance Cloudy (Clear) Urine pH 6.5 (5.0-8.0) Ur Specific [place] 1.027 (1.001-1.035) Urine Protein 1+ H (Negative) Urine Glucose (UA) Negative (Negative) Urine Ketones Negative (Negative) Urine Blood Negative (Negative) Urine Nitrite Positive (Negative) Urine Bilirubin Negative (Negative) Urine Urobilinogen 2.0 (<2.0) mg/dL Ur Leukocyte Esterase Large H (Negative) Urine RBC 4 (0-5) /hpf Urine WBC 114 H (0-5) /hpf Ur Squamous Epith Cells 1 (0-4) /hpf Urine Bacteria Many H (None) /hpf Urine Mucus Many H (None) /hpf Disposition Clinical Impression: Urinary tract infection due to extended-spectrum beta lactamase (ESBL) producing Escherichia coli Disposition: ADMITTED IP TO THIS HOSP Condition: Serious Referrals: Wu Gibson MD [Primary Care Provider] - 1-2 days Decision Time: 17:42
[2022-05-15 16:09] LABS: Basophils % (A) 0 %; Eosinophils # (A) 0.2 k/uL (0-0.7); Eosinophils % (A) 3 %; HCT 38.3 % (39.0-53.0); HGB 12.3 gm/dL (13.0-17.5); Hypochromasia Slight; Lymphocytes # (A) 0.5 k/uL (1.0-4.8); Lymphocytes % (A) 7 %; MCH 33.8 pg (25.0-35.0); MCHC 32.2 g/dL (31.0-37.0); Macrocytosis Moderate; Mean Platelet Volume 7.6; Monocytes # (A) 0.4 k/uL (0-1.0); Monocytes % (A) 5 %; Neutrophils # (A) 5.9 k/uL (1.3-7.7); Neutrophils % (A) 83 %; Platelet Count 189 k/uL (150-450); RBC 3.65 m/uL (4.30-5.90); RDW 14.6 % (11.5-15.5)
[2022-05-15 16:15] LABS: African American GFR (CKD) >90 (>60 ml/min/1.73 sqM); Anion Gap 13 mmol/L; Blood Urea Nitrogen 22 mg/dL (9-20); Calcium 9.3 mg/dL (8.4-10.2); Carbon Dioxide 30 mmol/L (22-30); Chloride 97 mmol/L (98-107); Glucose 111 mg/dL (74-99); Non-African American GFR(CKD) >90 (>60 ml/min/1.73 sqM); Potassium 4.3 mmol/L (3.5-5.1); Sodium 140 mmol/L (137-145)
[2022-05-15 16:57] LABS: Appearance,Urine Cloudy (Clear); Bacteria,Urine Many /hpf; Bilirubin,Urine Negative (Negative); Blood,Urine Negative (Negative); Color,Urine Yellow; Glucose,Urine (UA) Negative (Negative); Ketones,Urine Negative (Negative); Leukocyte Esterase,Urine Large (Negative); Mucus,Urine Many /hpf; Nitrite,Urine Positive (Negative); PH, Urine 6.5 (5.0-8.0); Protein,Urine 1+ (Negative); RBC,Urine 4 /hpf (0-5); Specific Gravity,Urine 1.027 (1.001-1.035); Squamous Epithelial Cell,Urine 1 /hpf (0-4); WBC,Urine 114 /hpf (0-5)
[2022-05-15] MEDS ORDERED: NALOXONE 0.4 MG/ML 1 ML VIAL IV PRN (17:25)
[2022-05-15] MEDS ORDERED: ACETAMINOPHEN TAB 325 MG TAB PO PRN (17:25)
[2022-05-15] MEDS ORDERED: ONDANSETRON 4 MG/2 ML VIAL IVP PRN (17:25)
[2022-05-15] MEDS ORDERED: HEPARIN SODIUM,PORCINE/PF 5,000 UNIT/0.5 ML SYRINGE SQ SCH (21:00)
[2022-05-15] MEDS: SODIUM CHLORIDE 0.9% 1,000 ML IV SCH (21:27)
[2022-05-15] MEDS ORDERED: HYDROcodone/APAP 5-325MG 1 EACH TAB PO PRN (21:55)
[2022-05-15] MEDS: APIXABAN 2.5 MG TABLET PO SCH (22:41)
[2022-05-15] MEDS: carvediloL 6.25 MG TAB PO SCH (22:41)
[2022-05-15] MEDS: CARBIDOPA-LEVODOPA ER 50-200MG 1 EACH TABLET.ER PO SCH (22:41)
[2022-05-15] MEDS: TAMSULOSIN 0.4 MG CAP.ER.24H PO SCH (22:41)
[2022-05-15] MEDS: HYDROcodone/APAP 5-325MG 1 EACH TAB PO SCH (22:42)
[2022-05-15] MEDS: ATORVASTATIN 10 MG TAB PO SCH (22:42)
--- NOTE | 2022-05-15 22:44 | P.HPIM ---
History of Present Illness H&P Date: 05/15/22 Chief Complaint: UTI This is a 89-year-old patient, follows a visiting physicians Dr. Gibson. Chronic stable medical conditions include hypertension, hyperlipidemia, recent c ell cancer of the scalp, Parkinson's, bilateral AKA, CAD with stent/bypass. Patient was sent in because he was treated for UTI as outpatient. Then given a second course of antibiotic. Subsequent cultures showing ESBL for which he needed IV antibiotics and sent to the ER. Patient denies any burning of the urine. No fever no chills. Appetite is fair. No change in bowel pattern. Review of systems: GEN.: Tired EYES: None HEENT: None NECK: None RESPIRATORY: None CARDIOVASCULAR: None GASTROINTESTINAL: None GENITOURINARY: None MUSCULOSKELETAL: Joint pains, bilateral AKA LYMPHATICS: None HEMATOLOGICAL: None PSYCHIATRY: Bit forgetful NEUROLOGICAL: None Past medical history to include: Hyperlipidemia, hypertension, basal cell cancer, Parkinson's, bilateral above- knee amputation, coronary bypass, CAD with stent Social history: . Does use a wheelchair. Retired from work in purchasing. Nonsmoker. No alcohol. Physical examination: VITAL SIGNS: 98.3, 92, 18, 104/77, 96% room air GENERAL: BMI 20.8, laying in bed awake, tired. EYES: Pupils equal. Conjunctiva normal. HEENT: External appearance of nose and ears normal, oral cavity grossly normal. Irregular skin with scarring on the scalp NECK: JVD not raised; masses not palpable. HEART: First and second heart sounds are normal; no edema. LUNGS: Respiratory rate normal; clear to auscultation. ABDOMEN: Soft, nontender, liver spleen not palpable, no masses palpable. PSYCH: Alert and oriented x3; mood and affect normal. MUSCULOSKELETAL:No Clubbing/cyanosis;muscles-grossly intact. Evidence of OA. NEUROLOGICAL: Cranial nerves grossly intact; no facial asymmetry, power and sensation grossly intact. LYMPHATICS: No lymph nodes palpable in the axilla and neck INVESTIGATIONS, reviewed in the clinical context: White count 17 hemoglobin 12.3 platelets 19 potassium 4.3 BUN 22 creatinine 0.37 UA positive for routine, leukoesterase, WBC negative for nitrite Assessment and plan: -Acute UTI with cystitis from ESBL. Consult ID. -Bilateral above-knee amputation -Hyperlipidemia Crestor 5 mg daily at bedtime -Essential hypertension Coreg 6.25 mg twice a day -Basal cell carcinoma of the skin/New allograft -CAD with stents to prior history of coronary bypass Aspirin, Imdur Resume home medications. Care was discussed with the patient. Consult ID. Urine cultures sent. -BPH Flomax 0.4 mg daily at bedtime -Parkinson's disorder Sinemet CR 50/200 one tablet twice a day Past Medical History Past Medical History: Cancer, Hyperlipidemia, Hypertension, Myocardial Infarction ([place]) Additional Past Medical History / Comment(s): BASAL CELL SKIN CANCER, PARKINSONS, CONSTIPATION, RT FOOT WOUND(HX OF OSTEOMYELITIS -GOES TO [facility] EVERY WEDNESDAY), [place] 2018 Last Myocardial Infarction Date:: 1991 History of Any Multi-Drug Resistant Organisms: ESBL, MRSA Date of last positivie culture/infection: 02/27/22 ESBL E.coli; 03/03/16 MRSA MDRO Source:: ESBL-Urine MRSA- Right Leg Past Surgical History: Coronary Bypass/CABG, Heart Catheterization With Stent, Tonsillectomy Additional Past Surgical History / Comment(s): " 4 VESSEL CABG 23 OR 24 YEARS AGO"CATARACTS,SEVERAL HEART CATHS," X12 STENTS", bil[place] Past Anesthesia/Blood Transfusion Reactions: No Reported Reaction Date of Last Stent Placement:: 2010 Past Psychological History: No Psychological Hx Reported Smoking Status: Never smoker Past Alcohol Use History: None Reported Past Drug Use History: None Reported - Past Family History Father History Unknown: Yes Family Medical History: Myocardial Infarction ([place]) Mother Family Medical History: Cancer, Diabetes Mellitus Additional Family Medical History / Comment(s): "stomach problems and had bowel sx-"part of intestines removed" Medications and Allergies Home Medications Medication Instructions Recorded Confirmed Type carvediloL [Coreg] 6.25 mg PO BID 11/30/16 05/15/22 History Aspirin 81 mg PO DAILY chew 12/02/16 05/15/22 Rx Docusate [Colace] 100 mg PO HS 02/19/19 05/15/22 History Multivitamins, Thera [Multivitamin 1 tab PO DAILY 02/19/19 05/15/22 History (formulary)] Acitretin [Soriatane] 10 mg PO DAILY 02/27/22 05/15/22 History Apixaban [Eliquis] 2.5 mg PO BID 02/27/22 05/15/22 History Carbidopa-Levodopa ER 50-200Mg 1 tab PO BID 02/27/22 05/15/22 History [Sinemet CR 50-200 mg] Ferrous Sulfate [Iron (65 MG 325 mg PO Q48H 02/27/22 05/15/22 History Elemental)] Furosemide [Lasix] 20 mg PO BID 02/27/22 05/15/22 History HYDROcodone/APAP 5-325MG [[place] 1 tab PO BID PRN 02/27/22 05/15/22 History 5-325] Isosorbide Mononitrate ER [Imdur] 30 mg PO DAILY 02/27/22 05/15/22 History Potassium Chloride ER [K-Dur 20] 20 meq PO BID 02/27/22 05/15/22 History Rosuvastatin Calcium [Crestor] 5 mg PO HS 02/27/22 05/15/22 History Tamsulosin [Flomax] 0.4 mg PO HS 02/27/22 05/15/22 History Cholecalciferol [Vitamin D3 (25 25 mcg PO DAILY 05/15/22 05/15/22 History Mcg = 1000 Iu)] HYDROcodone/APAP 5-325MG [[place] 0.5 tab PO HS 05/15/22 05/15/22 History 5-325] Allergies Allergy/AdvReac Type Severity Reaction Status Date / Time Sulfa (Sulfonamide Allergy Rash/Hives Verified 05/15/22 16:53 Antibiotics) amoxicillin [From Augmentin] AdvReac Caused Verified 05/15/22 16:53 yeast infection ciprofloxacin [From Cipro] AdvReac Caused Verified 05/15/22 16:53 yeast infection clavulanic acid AdvReac Caused Verified 05/15/22 16:53 [From Augmentin] yeast infection fluconazole AdvReac Caused Verified 05/15/22 16:53 yeast infection Physical Exam Vitals: Vital Signs Temp Pulse Resp BP Pulse Ox 05/15/22 21:25 70 18 111/66 99 05/15/22 15:02 98.3 F 92 18 104/77 96 Intake and Output 05/15/22 05/15/22 05/15/22 06:59 14:59 22:59 Other: Voiding Method Urinal Weight 30.844 kg Results CBC & Chem 7: 05/15/22 15:51 05/15/22 15:51 Labs: Abnormal Lab Results - Last 24 Hours (Table) 05/15/22 05/15/22 05/15/22 Range/Units 15:51 15:51 16:34 RBC 3.65 L (4.30-5.90) m/uL Hgb 12.3 L (13.0-17.5) gm/dL Hct 38.3 L (39.0-53.0) % MCV 105.0 H (80.0-100.0) fL Lymphocytes # 0.5 L (1.0-4.8) k/uL Chloride 97 L (98-107) mmol/L BUN 22 H (9-20) mg/dL Creatinine 0.37 L (0.66-1.25) mg/dL Glucose 111 H (74-99) mg/dL Urine Protein 1+ H (Negative) Ur Leukocyte Esterase Large H (Negative) Urine WBC 114 H (0-5) /hpf Urine Bacteria Many H (None) /hpf Urine Mucus Many H (None) /hpf Microbiology - Last 24 Hours (Table) 05/15/22 16:34 Urine Culture - Preliminary Urine,Voided
[2022-05-16] MEDS: ACITRETIN 10 MG PO SCH (08:22)
[2022-05-16] MEDS: CHOLECALCIFEROL 25 MCG (1000 IU) TABLET PO SCH (08:29)
[2022-05-16] MEDS: APIXABAN 2.5 MG TABLET PO SCH ×2 (08:29→19:50)
[2022-05-16] MEDS: ISOSORBIDE MONONITRATE ER 30 MG TAB.ER.24H PO SCH (08:29)
[2022-05-16] MEDS: ASPIRIN 81 MG PO SCH (08:29)
[2022-05-16] MEDS: MULTIVITAMINS, THERA 1 EACH TAB PO SCH (08:29)
[2022-05-16] MEDS: carvediloL 6.25 MG TAB PO SCH ×2 (08:30→17:53)
[2022-05-16] MEDS: CARBIDOPA-LEVODOPA ER 50-200MG 1 EACH TABLET.ER PO SCH ×2 (09:26→20:18)
[2022-05-16] MEDS: SODIUM CHLORIDE 0.9% 1,000 ML IV SCH (14:09)
[2022-05-16] MEDS: ERTAPENEM 1 GM in SODIUM CHLORIDE 0.9% 50 ML IVPB SCH (14:09)
[2022-05-16] MEDS: ATORVASTATIN 10 MG TAB PO SCH (19:50)
[2022-05-16] MEDS: TAMSULOSIN 0.4 MG CAP.ER.24H PO SCH (19:50)
[2022-05-16] MEDS: HYDROcodone/APAP 5-325MG 1 EACH TAB PO SCH (19:50)
--- NOTE | 2022-05-16 21:18 | P.PN ---
Progress Note - Text Progress Note Date: 05/16/22 Chief Complaint: UTI This is a 89-year-old patient, follows a visiting physicians Dr. Gibson. Chronic stable medical conditions include hypertension, hyperlipidemia, recent cell cancer of the scalp, Parkinson's, bilateral AKA, CAD with stent/bypass. Patient was sent in because he was treated for UTI as outpatient. Then given a second course of antibiotic. Subsequent cultures showing ESBL for which he needed IV antibiotics and sent to the ER. Patient denies any burning of the urine. No fever no chills. Appetite is fair. No change in bowel pattern. Admitted with acute UTI with cystitis from ESBL. May 16: Seen by ID. IV ertapenem. Eating fair. Tired. In bed. Active Medications Acetaminophen (Acetaminophen Tab 325 Mg Tab) 650 mg PO Q6HR PRN PRN Reason: Mild Pain or Fever > 100.5 Hydrocodone Bitart/Acetaminophen (Hydrocodone/Apap 5-325mg 1 Each Tab) 0.5 each PO HS [facility] Last Admin: 05/16/22 19:50 Dose: 0.5 each Hydrocodone Bitart/Acetaminophen (Hydrocodone/Apap 5-325mg 1 Each Tab) 1 each PO BID PRN PRN Reason: Pain Apixaban (Apixaban 2.5 Mg Tablet) 2.5 mg PO BID [facility]; Protocol Last Admin: 05/16/22 19:50 Dose: 2.5 mg Aspirin (Aspirin 81 Mg) 81 mg PO DAILY [facility] Last Admin: 05/16/22 08:29 Dose: 81 mg Atorvastatin Calcium (Atorvastatin 10 Mg Tab) 10 mg PO HS [facility] Last Admin: 05/16/22 19:50 Dose: 10 mg Carbidopa/Levodopa (Carbidopa-Levodopa Er 50-200mg 1 Each Tablet.Er) 1 each PO BID [facility] Last Admin: 05/16/22 20:18 Dose: 1 each Carvedilol (Carvedilol 6.25 Mg Tab) 6.25 mg PO BID-W/MEALS [facility] Last Admin: 05/16/22 17:53 Dose: 6.25 mg Cholecalciferol (Cholecalciferol 25 Mcg (1000 Iu) Tablet) 25 mcg PO DAILY [facility] Last Admin: 05/16/22 08:29 Dose: 25 mcg Sodium Chloride (Saline 0.9%) 1,000 mls @ 20 mls/hr IV .Q24H [facility] Last Admin: 05/16/22 14:09 Dose: 20 mls/hr Ertapenem 1 gm/ Sodium (Chloride) 50 mls @ 100 mls/hr IVPB DAILY [facility]; Protocol Last Admin: 05/16/22 14:09 Dose: 100 mls/hr Isosorbide Mononitrate (Isosorbide Mononitrate Er 30 Mg Tab.Er.24h) 30 mg PO DAILY [facility] Last Admin: 05/16/22 08:29 Dose: 30 mg Multivitamins (Multivitamins, Thera 1 Each Tab) 1 each PO DAILY [facility] Last Admin: 05/16/22 08:29 Dose: 1 each Naloxone HCl (Naloxone 0.4 Mg/Ml 1 Ml Vial) 0.2 mg IV Q2M PRN PRN Reason: Opioid Reversal Non-Formulary Medication (Acitretin [Soriatane]) 10 mg PO DAILY [facility] Last Admin: 05/16/22 08:22 Dose: Not Given Ondansetron HCl (Ondansetron 4 Mg/2 Ml Vial) 4 mg IVP Q8HR PRN PRN Reason: Nausea And Vomiting Tamsulosin HCl (Tamsulosin 0.4 Mg Cap.Er.24h) 0.4 mg PO HS [facility] Last Admin: 05/16/22 19:50 Dose: 0.4 mg Past medical history to include: Hyperlipidemia, hypertension, basal cell cancer, Parkinson's, bilateral above- knee amputation, coronary bypass, CAD with stent Social history: . Does use a wheelchair. Retired from work in purchasing. Nonsmoker. No alcohol. Physical examination: VITAL SIGNS: 97.6, 74, 16, 128/74, 97% room air GENERAL: laying in bed awake, tired. EYES: Pupils equal. Conjunctiva normal. HEENT: External appearance of nose and ears normal, oral cavity grossly normal. Irregular skin with scarring on the scalp NECK: JVD not raised; masses not palpable. HEART: First and second heart sounds are normal; no edema. LUNGS: Respiratory rate normal; clear to auscultation. ABDOMEN: Soft, nontender, liver spleen not palpable, no masses palpable. PSYCH: Alert and oriented x3; mood and affect normal. MUSCULOSKELETAL:No Clubbing/cyanosis;muscles-grossly intact. Evidence of OA. INVESTIGATIONS, reviewed in the clinical context: White count 17 hemoglobin 12.3 platelets 19 potassium 4.3 BUN 22 creatinine 0.37 UA positive for routine, leukoesterase, WBC negative for nitrite Assessment and plan: -Acute UTI with cystitis from ESBL. IV ertapenem. Follow with ID. -Bilateral above-knee amputation -Hyperlipidemia Crestor 5 mg daily at bedtime -Essential hypertension Coreg 6.25 mg twice a day -Basal cell carcinoma of the skin/New allograft -CAD with stents to prior history of coronary bypass Aspirin, Imdur Resume home medications. Care was discussed with the patient. Consult ID. Urine cultures sent. -BPH Flomax 0.4 mg daily at bedtime -Parkinson's disorder Sinemet CR 50/200 one tablet twice a day IV ertapenem added. Other medications to continue.
--- NOTE | 2022-05-17 01:40 | P.CONS ---
History of Present Illness - Reason for Consult Consult date: 05/16/22 - History of Present Illness Patient is a 89-year-old male with a past medical history significant for hypertension hyperlipidemia Parkinson disease and coronary artery disease patient also have a history of recurrent UTI and has been treated with a different courses of antibiotic therapy with recent outpatient urine culture positive for ESBL E. coli for the patient was sent to the hospital for further evaluation last urine culture in the system was from 02/27/2022 with ESBL E. coli patient on presentation to the hospital was afebrile and no fever have been recorded subsequently patient did have a normal white count kidney function has been normal did have a positive UA patient was given a dose of Zosyn has been admitted to hospital infectious disease was consulted for further management of antibiotic therapy patient currently denies having any fever or any chills no chest pain or shortness with or cough no nausea vomiting no abdominal pain no diarrhea Past Medical History Past Medical History: Cancer, Hyperlipidemia, Hypertension, Myocardial Infarction ([place]) Additional Past Medical History / Comment(s): BASAL CELL SKIN CANCER, PARKI NSONS, CONSTIPATION, RT FOOT WOUND(HX OF OSTEOMYELITIS -GOES TO THE [facility] EVERY WEDNESDAY), Melissa KUMAR 2018 Last Myocardial Infarction Date:: 1991 History of Any Multi-Drug Resistant Organisms: ESBL, MRSA Year Discovered:: 02/27/22 ESBL E.coli; 03/03/16 MRSA MDRO Source:: ESBL-Urine MRSA- Right Leg Past Surgical History: Coronary Bypass/CABG, Heart Catheterization With Stent, Tonsillectomy Additional Past Surgical History / Comment(s): " 4 VESSEL CABG 23 OR 24 YEARS AGO"CATARACTS,SEVERAL HEART CATHS," X12 STENTS", bilolga [place] Past Anesthesia/Blood Transfusion Reactions: No Reported Reaction Date of Last Stent Placement:: 2010 Past Psychological History: No Psychological Hx Reported Additional Psychological History / Comment(s): lives in the family home, (has 1 pet cat).-HAS 2 STEPS TO GET INTO HOME AND HOME IS A SINGLE LEVEL. GETS VISITING NURSES X1 WEEK, has cane/waler,scooter,w/c lift chair and built in shower chair. No recent travel, served in the [employer]. Retired used to work in purchasing. No new animal exposures Smoking Status: Never smoker Past Alcohol Use History: None Reported Past Drug Use History: None Reported - Past Family History Father History Unknown: Yes Family Medical History: Myocardial Infarction ([place]) Mother Family Medical History: Cancer, Diabetes Mellitus Additional Family Medical History / Comment(s): "stomach problems and had bowel sx-"part of intestines removed" Medications and Allergies Home Medications Medication Instructions Recorded Confirmed Type carvediloL [Coreg] 6.25 mg PO BID 11/30/16 05/15/22 History Aspirin 81 mg PO DAILY chew 12/02/16 05/15/22 Rx Docusate [Colace] 100 mg PO HS 02/19/19 05/15/22 History Multivitamins, Thera [Multivitamin 1 tab PO DAILY 02/19/19 05/15/22 History (formulary)] Acitretin [Soriatane] 10 mg PO DAILY 02/27/22 05/15/22 History Apixaban [Eliquis] 2.5 mg PO BID 02/27/22 05/15/22 History Carbidopa-Levodopa ER 50-200Mg 1 tab PO BID 02/27/22 05/15/22 History [Sinemet CR 50-200 mg] Ferrous Sulfate [Iron (65 MG 325 mg PO Q48H 02/27/22 05/15/22 History Elemental)] Furosemide [Lasix] 20 mg PO BID 02/27/22 05/15/22 History HYDROcodone/APAP 5-325MG [[place] 1 tab PO BID PRN 02/27/22 05/15/22 History 5-325] Isosorbide Mononitrate ER [Imdur] 30 mg PO DAILY 02/27/22 05/15/22 History Potassium Chloride ER [K-Dur 20] 20 meq PO BID 02/27/22 05/15/22 History Rosuvastatin Calcium [Crestor] 5 mg PO HS 02/27/22 05/15/22 History Tamsulosin [Flomax] 0.4 mg PO HS 02/27/22 05/15/22 History Cholecalciferol [Vitamin D3 (25 25 mcg PO DAILY 05/15/22 05/15/22 History Mcg = 1000 Iu)] HYDROcodone/APAP 5-325MG [[place] 0.5 tab PO HS 05/15/22 05/15/22 History 5-325] Allergies Allergy/AdvReac Type Severity Reaction Status Date / Time Sulfa (Sulfonamide Allergy Rash/Hives Verified 05/15/22 16:53 Antibiotics) amoxicillin [From Augmentin] AdvReac Caused Verified 05/15/22 16:53 yeast infection ciprofloxacin [From Cipro] AdvReac Caused Verified 05/15/22 16:53 yeast infection clavulanic acid AdvReac Caused Verified 05/15/22 16:53 [From Augmentin] yeast infection fluconazole AdvReac Caused Verified 05/15/22 16:53 yeast infection Physical Exam Vitals: Vital Signs Temp Pulse Pulse Resp BP BP Pulse Ox 05/16/22 13:04 97.6 F 74 16 128/74 97 05/16/22 08:00 97.5 F L 77 16 138/65 98 05/15/22 21:25 70 18 111/66 99 05/15/22 15:02 98.3 F 92 18 104/77 96 Intake and Output 05/15/22 05/16/22 05/16/22 22:59 06:59 14:59 Other: Voiding Method Urinal Urinal Diaper Weight 30.844 kg Results CBC & Chem 7: 05/15/22 15:51 05/15/22 15:51 Labs: Abnormal Lab Results - Last 24 Hours (Table) 05/15/22 05/15/22 05/15/22 Range/Units 15:51 15:51 16:34 RBC 3.65 L (4.30-5.90) m/uL Hgb 12.3 L (13.0-17.5) gm/dL Hct 38.3 L (39.0-53.0) % MCV 105.0 H (80.0-100.0) fL Lymphocytes # 0.5 L (1.0-4.8) k/uL Chloride 97 L (98-107) mmol/L BUN 22 H (9-20) mg/dL Creatinine 0.37 L (0.66-1.25) mg/dL Glucose 111 H (74-99) mg/dL Urine Protein 1+ H (Negative) Ur Leukocyte Esterase Large H (Negative) Urine WBC 114 H (0-5) /hpf Urine Bacteria Many H (None) /hpf Urine Mucus Many H (None) /hpf Microbiology - Last 24 Hours (Table) 05/15/22 16:34 Urine Culture - Preliminary Urine,Voided Assessment and Plan Plan: 1patient with a history of recurrent UTI did have some difficulty urination with outpatient urine culture positive for ESBL patient did not have any fever during this admission or elevated white count did have a positive UA possible cystitis, clinically behaving as a deep infection. 2- Patient with multiple antibiotic allergies that would limit the number of antibiotics safe to use 3-we will start the patient on Invanz 1 g daily evaluating for repeat urine cultures to further We will follow on clinical condition and cultures to further adjust medication if needed Thank you for this consultation will follow this patient along with you Time with Patient: Greater than 30
[2022-05-17 05:44] LABS: Basophils % (A) 1 %; Eosinophils # (A) 0.2 k/uL (0-0.7); Eosinophils % (A) 4 %; HCT 34.5 % (39.0-53.0); HGB 10.9 gm/dL (13.0-17.5); Hypochromasia Slight; Lymphocytes # (A) 0.4 k/uL (1.0-4.8); Lymphocytes % (A) 11 %; MCH 33.1 pg (25.0-35.0); MCHC 31.5 g/dL (31.0-37.0); MCV 105.1 fL (80.0-100.0); Macrocytosis Moderate; Mean Platelet Volume 7.8; Monocytes # (A) 0.3 k/uL (0-1.0); Monocytes % (A) 8 %; Neutrophils # (A) 2.7 k/uL (1.3-7.7); Neutrophils % (A) 74 %; Platelet Count 161 k/uL (150-450); RBC 3.29 m/uL (4.30-5.90); RDW 14.2 % (11.5-15.5); WBC 3.7 k/uL (3.8-10.6)
[2022-05-17 06:00] LABS: African American GFR (CKD) >90 (>60 ml/min/1.73 sqM); Anion Gap 10 mmol/L; Blood Urea Nitrogen 15 mg/dL (9-20); Calcium 8.7 mg/dL (8.4-10.2); Carbon Dioxide 24 mmol/L (22-30); Chloride 101 mmol/L (98-107); Glucose 82 mg/dL (74-99); Non-African American GFR(CKD) >90 (>60 ml/min/1.73 sqM); Potassium 3.9 mmol/L (3.5-5.1); Sodium 135 mmol/L (137-145)
[2022-05-17] MEDS: carvediloL 6.25 MG TAB PO SCH ×2 (08:12→17:26)
[2022-05-17] MEDS: ASPIRIN 81 MG PO SCH (08:12)
[2022-05-17] MEDS: CHOLECALCIFEROL 25 MCG (1000 IU) TABLET PO SCH (08:12)
[2022-05-17] MEDS: APIXABAN 2.5 MG TABLET PO SCH ×2 (08:12→20:48)
[2022-05-17] MEDS: CARBIDOPA-LEVODOPA ER 50-200MG 1 EACH TABLET.ER PO SCH ×2 (08:12→20:49)
[2022-05-17] MEDS: MULTIVITAMINS, THERA 1 EACH TAB PO SCH (08:12)
[2022-05-17] MEDS: ISOSORBIDE MONONITRATE ER 30 MG TAB.ER.24H PO SCH (08:13)
[2022-05-17] MEDS: ERTAPENEM 1 GM in SODIUM CHLORIDE 0.9% 50 ML IVPB SCH (08:13)
[2022-05-17] MEDS: ACITRETIN 10 MG PO SCH (08:13)
--- NOTE | 2022-05-17 14:53 | P.PN ---
Progress Note - Text Progress Note Date: 05/17/22 Chief Complaint: UTI This is a 89-year-old patient, follows a visiting physicians Dr. Gibson. Chronic stable medical conditions include hypertension, hyperlipidemia, recent cell cancer of the scalp, Parkinson's, bilateral AKA, CAD with stent/bypass. Patient was sent in because he was treated for UTI as outpatient. Then given a second course of antibiotic. Subsequent cultures showing ESBL for which he needed IV antibiotics and sent to the ER. Patient denies any burning of the urine. No fever no chills. Appetite is fair. No change in bowel pattern. Admitted with acute UTI with cystitis from ESBL. May 16: Seen by ID. IV ertapenem. Eating fair. Tired. In bed. May 17: Eating good. IV ertapenem. IV fluids cutback. Comfortable. Follow with ID. Active Medications Acetaminophen (Acetaminophen Tab 325 Mg Tab) 650 mg PO Q6HR PRN PRN Reason: Mild Pain or Fever > 100.5 Hydrocodone Bitart/Acetaminophen (Hydrocodone/Apap 5-325mg 1 Each Tab) 0.5 each PO HS [facility] Last Admin: 05/16/22 19:50 Dose: 0.5 each Hydrocodone Bitart/Acetaminophen (Hydrocodone/Apap 5-325mg 1 Each Tab) 1 each PO BID PRN PRN Reason: Pain Apixaban (Apixaban 2.5 Mg Tablet) 2.5 mg PO BID [facility]; Protocol Last Admin: 05/17/22 08:12 Dose: 2.5 mg Aspirin (Aspirin 81 Mg) 81 mg PO DAILY [facility] Last Admin: 05/17/22 08:12 Dose: 81 mg Atorvastatin Calcium (Atorvastatin 10 Mg Tab) 10 mg PO HS [facility] Last Admin: 05/16/22 19:50 Dose: 10 mg Carbidopa/Levodopa (Carbidopa-Levodopa Er 50-200mg 1 Each Tablet.Er) 1 each PO BID [facility] Last Admin: 05/17/22 08:12 Dose: 1 each Carvedilol (Carvedilol 6.25 Mg Tab) 6.25 mg PO BID-W/MEALS [facility] Last Admin: 05/17/22 08:12 Dose: 6.25 mg Cholecalciferol (Cholecalciferol 25 Mcg (1000 Iu) Tablet) 25 mcg PO DAILY [facility] Last Admin: 05/17/22 08:12 Dose: 25 mcg Sodium Chloride (Saline 0.9%) 1,000 mls @ 20 mls/hr IV .Q24H [facility] Last Admin: 05/16/22 14:09 Dose: 20 mls/hr Ertapenem 1 gm/ Sodium (Chloride) 50 mls @ 100 mls/hr IVPB DAILY [facility]; Protocol Last Admin: 05/17/22 08:13 Dose: 100 mls/hr Isosorbide Mononitrate (Isosorbide Mononitrate Er 30 Mg Tab.Er.24h) 30 mg PO DAILY [facility] Last Admin: 05/17/22 08:13 Dose: 30 mg Multivitamins (Multivitamins, Thera 1 Each Tab) 1 each PO DAILY [facility] Last Admin: 05/17/22 08:12 Dose: 1 each Naloxone HCl (Naloxone 0.4 Mg/Ml 1 Ml Vial) 0.2 mg IV Q2M PRN PRN Reason: Opioid Reversal Non-Formulary Medication (Acitretin [Soriatane]) 10 mg PO DAILY [facility] Last Admin: 05/17/22 08:13 Dose: Not Given Ondansetron HCl (Ondansetron 4 Mg/2 Ml Vial) 4 mg IVP Q8HR PRN PRN Reason: Nausea And Vomiting Tamsulosin HCl (Tamsulosin 0.4 Mg Cap.Er.24h) 0.4 mg PO HS [facility] Last Admin: 05/16/22 19:50 Dose: 0.4 mg Past medical history to include: Hyperlipidemia, hypertension, basal cell cancer, Parkinson's, bilateral above- knee amputation, coronary bypass, CAD with stent Social history: . Does use a wheelchair. Retired from work in purchasing. Nonsmoker. No alcohol. Physical examination: VITAL SIGNS: 97.6, 73, 18, 120/71, 95% room air GENERAL: laying in bed awake, comfortable EYES: Pupils equal. Conjunctiva normal. HEENT: External appearance of nose and ears normal, oral cavity grossly normal. Irregular skin with scarring on the scalp NECK: JVD not raised; masses not palpable. HEART: First and second heart sounds are normal; no edema. LUNGS: Respiratory rate normal; clear to auscultation. ABDOMEN: Soft, nontender, liver spleen not palpable, no masses palpable. PSYCH: Alert and oriented x3; mood and affect normal. MUSCULOSKELETAL:No Clubbing/cyanosis;muscles-grossly intact. Evidence of OA. INVESTIGATIONS, reviewed in the clinical context: Urine culture: Gram-negative bacilli May 17: WBC 3.7 hemoglobin 10.9 potassium 3.9 creatinine 0.33 pro- calcitonin 0.04 White count 17 hemoglobin 12.3 platelets 19 potassium 4.3 BUN 22 creatinine 0.37 UA positive for routine, leukoesterase, WBC negative for nitrite Assessment and plan: -Acute UTI with cystitis from ESBL. IV ertapenem. Follow with ID. repeat cultures growing gram-negative bacilli -Bilateral above-knee amputation -Hyperlipidemia Crestor 5 mg daily at bedtime -Essential hypertension Coreg 6.25 mg twice a day -Basal cell carcinoma of the skin/New allograft -CAD with stents to prior history of coronary bypass Aspirin, Imdur Resume home medications. Care was discussed with the patient. Consult ID. Urine cultures sent. -BPH Flomax 0.4 mg daily at bedtime -Parkinson's disorder Sinemet CR 50/200 one tablet twice a day IV ertapenem . Repeat urine culture gram-negative bacilli. Continue current medications. Discussed with patient.
--- NOTE | 2022-05-17 16:55 | P.PN ---
Subjective Progress Note Date: 05/17/22 Principal diagnosis: Urinary tract infection Patient is 89 year old male with multiple comorbidity and history of recurrent UTI apparently outpatient culture positive for ESBL E. coli admitted to the hospital for symptomatic UTI. On today's evaluation that is 05/17/2022, the patient denies having any fever or any chills, the patient is breathing comfortably on room he denies any chest pain or shortness of breath or cough no abdominal pain no diarrhea Objective - Vital Signs Vital signs: Vital Signs Temp 97.6 F 05/17/22 12:56 Pulse 73 05/17/22 12:56 Resp 18 05/17/22 12:56 BP 120/71 05/17/22 12:56 Pulse Ox 95 05/17/22 12:56 FiO2 Intake & Output 05/16/22 05/17/22 05/17/22 18:59 06:59 18:59 Intake Total 485 Output Total 400 200 Balance -400 285 Weight 30.844 kg Intake: Oral 485 Output: Urine 400 200 Other: Voiding Method Urinal Urinal Urinal Diaper Diaper Diaper # Voids 1 # Bowel Movements 1 - Exam GENERAL DESCRIPTION: An elderly male lying in bed in no distress RESPIRATORY SYSTEM: Unlabored breathing , decreased breath sounds at bases HEART: S1 S2 regular rate and rhythm , ABDOMEN: Soft , no tenderness EXTREMITIES: No edema feet - Labs CBC & Chem 7: 05/17/22 05:07 05/17/22 05:07 Labs: Abnormal Lab Results - Last 24 Hours (Table) 05/17/22 05/17/22 Range/Units 05:07 05:07 WBC 3.7 L (3.8-10.6) k/uL RBC 3.29 L (4.30-5.90) m/uL Hgb 10.9 L (13.0-17.5) gm/dL Hct 34.5 L (39.0-53.0) % MCV 105.1 H (80.0-100.0) fL Lymphocytes # 0.4 L (1.0-4.8) k/uL Sodium 135 L (137-145) mmol/L Creatinine 0.33 L (0.66-1.25) mg/dL Microbiology - Last 24 Hours (Table) 05/15/22 15:35 Blood Culture - Preliminary Blood No Growth after 24 hours 05/15/22 15:50 Blood Culture - Preliminary Blood No Growth after 24 hours 05/15/22 16:34 Urine Culture - Preliminary Urine,Voided Gram Neg Bacilli Assessment and Plan (1) Urinary tract infection due to extended-spectrum beta lactamase (ESBL) producing Escherichia coli Current Visit: Yes Status: Acute Code(s): N39.0 - URINARY TRACT INFECTION, SITE NOT SPECIFIED; B96.29 - OTH ESCHERICHIA COLI THE CAUSE OF DISEASES CLASSD ELSWHR; Z16.12 - EXTENDED SPECTRUM BETA LACTAMASE (ESBL) RESISTANCE SNOMED Code(s): 160810635 Plan: 1patient with a history of recurrent UTI did have some difficulty urination with outpatient urine culture positive for ESBL patient did not have any fever d uring this admission or elevated white count did have a positive UA possible cystitis, clinically behaving as a deep infection. 2- Patient with multiple antibiotic allergies that would limit the number of antibiotics safe to use 3-patient will continue with Invanz 1 g daily while waiting for repeat urine cultures to finalize Time with Patient: Less than 30
[2022-05-17] MEDS: SODIUM CHLORIDE 0.9% 1,000 ML IV SCH (17:26)
[2022-05-17] MEDS: HYDROcodone/APAP 5-325MG 1 EACH TAB PO SCH (20:46)
[2022-05-17] MEDS: TAMSULOSIN 0.4 MG CAP.ER.24H PO SCH (20:49)
[2022-05-17] MEDS: ATORVASTATIN 10 MG TAB PO SCH (20:49)
[2022-05-18] MEDS: ERTAPENEM 1 GM in SODIUM CHLORIDE 0.9% 50 ML IVPB SCH (09:16)
[2022-05-18] MEDS: carvediloL 6.25 MG TAB PO SCH ×2 (09:16→17:50)
[2022-05-18] MEDS: CHOLECALCIFEROL 25 MCG (1000 IU) TABLET PO SCH (09:17)
[2022-05-18] MEDS: APIXABAN 2.5 MG TABLET PO SCH ×2 (09:17→20:19)
[2022-05-18] MEDS: ISOSORBIDE MONONITRATE ER 30 MG TAB.ER.24H PO SCH (09:17)
[2022-05-18] MEDS: MULTIVITAMINS, THERA 1 EACH TAB PO SCH (09:17)
[2022-05-18] MEDS: ASPIRIN 81 MG PO SCH (09:17)
[2022-05-18] MEDS: CARBIDOPA-LEVODOPA ER 50-200MG 1 EACH TABLET.ER PO SCH ×2 (09:17→20:19)
[2022-05-18] MEDS: ACITRETIN 10 MG PO SCH (10:47)
--- NOTE | 2022-05-18 12:36 | P.PN ---
Subjective Progress Note Date: 05/18/22 Principal diagnosis: Urinary tract infection Patient is 89 year old male with multiple comorbidity and history of recurrent UTI apparently outpatient culture positive for ESBL E. coli admitted to the hospital for symptomatic UTI. On today's evaluation that is 05/18/2022, the patient remains to be afebrile, the patient is breathing comfortably on room , the patient denies any chest pain or shortness of breath or cough no abdominal pain no diarrhea Objective - Vital Signs Vital signs: Vital Signs Temp 97.6 F 05/18/22 11:37 Pulse 77 05/18/22 11:37 Resp 15 05/18/22 11:37 BP 119/53 05/18/22 11:37 Pulse Ox 97 05/18/22 11:37 FiO2 Intake & Output 05/17/22 05/18/22 05/18/22 18:59 06:59 18:59 Intake Total 80 Output Total 300 400 Balance -300 -320 Intake: IV 80 Sodium Chloride 0.9% 1, 80 000 ml @ 20 mls/hr IV . Q24H [facility] Rx#:[id number] Output: Urine 300 400 Other: Voiding Method Urinal Urinal Urinal Diaper # Voids 1 2 # Bowel Movements 0 - Exam GENERAL DESCRIPTION: An elderly male lying in bed in no distress RESPIRATORY SYSTEM: Unlabored breathing , decreased breath sounds at bases HEART: S1 S2 regular rate and rhythm , ABDOMEN: Soft , no tenderness EXTREMITIES: No edema feet - Labs CBC & Chem 7: 05/17/22 05:07 05/17/22 05:07 Labs: Microbiology - Last 24 Hours (Table) 05/15/22 15:50 Blood Culture - Preliminary Blood No Growth after 48 hours 05/15/22 15:35 Blood Culture - Preliminary Blood No Growth after 48 hours Assessment and Plan (1) Urinary tract infection due to extended-spectrum beta lactamase (ESBL) producing Escherichia coli Current Visit: Yes Status: Acute Code(s): N39.0 - URINARY TRACT INFECTION, SITE NOT SPECIFIED; B96.29 - OTH ESCHERICHIA COLI THE CAUSE OF DISEASES CLASSD ELSWHR; Z16.12 - EXTENDED SPECTRUM BETA LACTAMASE (ESBL) RESISTANCE SNOMED Code(s): 280862340 Plan: 1patient with a history of recurrent UTI did have some difficulty urination with outpatient urine culture positive for ESBL patient did not have any fever during this admission or elevated white count did have a positive UA possible cystitis, clinically behaving as a deep infection. 2- Patient with multiple antibiotic allergies that would limit the number of antibiotics safe to use 3-patient has shows some clinical improvement and will continue with Invanz 1 g daily while waiting for repeat urine cultures to finalize
[2022-05-18 15:27] VITALS: BMI 20.7
[2022-05-18] MEDS: SODIUM CHLORIDE 0.9% 1,000 ML IV SCH (17:50)
[2022-05-18] MEDS: ATORVASTATIN 10 MG TAB PO SCH (20:17)
[2022-05-18] MEDS: TAMSULOSIN 0.4 MG CAP.ER.24H PO SCH (20:17)
[2022-05-18] MEDS: HYDROcodone/APAP 5-325MG 1 EACH TAB PO SCH (20:18)
--- NOTE | 2022-05-18 23:44 | P.PN ---
Subjective Progress Note Date: 05/18/22 Chief Complaint: UTI This is a 89-year-old patient, follows a visiting physicians Dr. Gibson. Chronic stable medical conditions include hypertension, hyperlipidemia, recent cell cancer of the scalp, Parkinson's, bilateral AKA, CAD with stent/bypass. Patient was sent in because he was treated for UTI as outpatient. Then given a second course of antibiotic. Subsequent cultures showing ESBL for which he needed IV antibiotics and sent to the ER. Patient denies any burning of the urine. No fever no chills. Appetite is fair. No change in bowel pattern. Admitted with acute UTI with cystitis from ESBL. May 16: Seen by ID. IV ertapenem. Eating fair. Tired. In bed. May 17: Eating good. IV ertapenem. IV fluids cutback. Comfortable. Follow with ID. 05/18/2022 Patient is seen in follow up today and ID following for UTI. Patient has chronic indwelling valente catheter and recurrent UTI due to this. Patient lives at home and cares for him with some family help and home care. Awaiting repeat urine cultures and repeat is gram negative bacilli. Continued on Invanz with ID following. Case management to follow as well in the event patient requires IV abx outpatient. Patient denies chest pain or shortness of breath. Patient is afebrile. Denies nausea or vomiting and tolerating diet. Physical examination: GENERAL: laying in bed awake, comfortable EYES: Pupils equal. Conjunctiva normal. HEENT: External appearance of nose and ears normal, oral cavity grossly normal. Irregular skin with scarring on the scalp NECK: JVD not raised; masses not palpable. HEART: First and second heart sounds are normal; no edema. LUNGS: Respiratory rate normal; clear to auscultation. ABDOMEN: Soft, nontender, liver spleen not palpable, no masses palpable. PSYCH: Alert and oriented x3; mood and affect normal. MUSCULOSKELETAL:No Clubbing/cyanosis;muscles-grossly intact. Evidence of OA. INVESTIGATIONS, reviewed in the clinical context: Urine culture: Gram-negative bacilli, ecoli with resistance and esbl May 17: WBC 3.7 hemoglobin 10.9 potassium 3.9 creatinine 0.33 pro- calcitonin 0.04 White count 17 hemoglobin 12.3 platelets 19 potassium 4.3 BUN 22 creatinine 0.37 UA positive for routine, leukoesterase, WBC negative for nitrite Assessment: -Acute UTI with cystitis from ESBL. -Bilateral above-knee amputation -Hyperlipidemia -Essential hypertension -Basal cell carcinoma of the skin/New allograft -CAD with stents to prior history of coronary bypass -BPH -Parkinson's disorder -Full code Plan: Recommend to continue with IV ertapenem . Repeat urine culture gram-negative bacilli and awaiting finalized cultures with ID following. May possibly need IV abx and case management following and verifying coverage. Discuss with family at the bedside and refusing any form of rehab and will be returning home per . Continue current medications. Discussed with patient. Possible discharge in 24- 48 hours. The impression and plan of care has been dictated by Nelly Castillo, Nurse Practitioner as directed. Dr. Ashlee MD I have performed a history and examination and MDM of this patient, discussed the same with the dictator, and agree with the dictator's assessment and plan as written ,documented as a scribe. Based on total visit time, I have performed more than 50% of the visit. Objective - Vital Signs Vital signs: Vital Signs Temp 97.5 F L 05/18/22 04:07 Pulse 102 H 05/18/22 09:26 Resp 15 05/18/22 04:07 BP 125/82 05/18/22 09:26 Pulse Ox 97 05/18/22 04:07 FiO2 Intake & Output 05/17/22 05/18/22 05/18/22 18:59 06:59 18:59 Intake Total 80 Output Total 300 400 Balance -300 -320 Intake: IV 80 Sodium Chloride 0.9% 1, 80 000 ml @ 20 mls/hr IV . Q24H [facility] Rx#:[id number] Output: Urine 300 400 Other: Voiding Method Urinal Urinal Diaper # Voids 1 2 # Bowel Movements 0 - Labs CBC & Chem 7: 05/17/22 05:07 05/17/22 05:07 Labs: Microbiology - Last 24 Hours (Table) 05/15/22 15:50 Blood Culture - Preliminary Blood No Growth after 48 hours 05/15/22 15:35 Blood Culture - Preliminary Blood No Growth after 48 hours
[2022-05-19] MEDS: ACITRETIN 10 MG PO SCH (08:42)
[2022-05-19] MEDS: carvediloL 6.25 MG TAB PO SCH (08:42)
[2022-05-19] MEDS: ERTAPENEM 1 GM in SODIUM CHLORIDE 0.9% 50 ML IVPB SCH (08:46)
[2022-05-19] MEDS: ASPIRIN 81 MG PO SCH (08:47)
[2022-05-19] MEDS: CHOLECALCIFEROL 25 MCG (1000 IU) TABLET PO SCH (08:47)
[2022-05-19] MEDS: ISOSORBIDE MONONITRATE ER 30 MG TAB.ER.24H PO SCH (08:47)
[2022-05-19] MEDS: CARBIDOPA-LEVODOPA ER 50-200MG 1 EACH TABLET.ER PO SCH (08:47)
[2022-05-19] MEDS: APIXABAN 2.5 MG TABLET PO SCH (08:47)
[2022-05-19] MEDS: MULTIVITAMINS, THERA 1 EACH TAB PO SCH (08:50)
[2022-05-19 11:59] VITALS: BP 104/64; PULSE 72; RESP 15; TEMP 98.1
[2022-05-19] MEDS: SODIUM CHLORIDE 0.9% 1,000 ML IV SCH (17:33)
--- NOTE | 2022-05-20 15:54 | P.DS ---
Providers Date of admission: 05/15/22 17:27 Expected date of discharge: 05/19/22 Attending physician: Octavio Moreno Consults: 05/15/22 17:25 Consult Physician Routine Consulting Provider: Aramis Walls Consult Reason/Comments: uti, hx of esbl Do you want consulting provider notified?: Yes Primary care physician: Wu Gibson Hospital Course: Final diagnosis -Acute UTI with cystitis from ESBL. 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 Patient will follow-up with visiting physicians Dr. Gibson in the outpatient setting upon discharge. Patient is to continue with IV antibiotics in the form of Invanz daily for the next 10 days. Total time taken is greater than 35 minutes. Hospital course This is a 89-year-old male who was recently admitted with UTI with frequent urinary tract infections and ESBL. Patient chronically has indwelling Hernadez catheter and urine culture finalized with E. coli ESBL and will receive a midline today for outpatient IV antibiotics in the form of Invanz for the next 10 days. Blood cultures remain negative. Patient with multiple medical comorbidities suggesting maybe rehab although family is adamantly refusing and reports they will care for him at home and he will not be going to any rehab. Patient was being followed by infectious disease and maintained on antibiotics and will continue for 10 days to complete a course. Currently no reports of chest pain, shortness of breath, or palpitations. Patient is afebrile. No reports of nausea or vomiting and patient is tolerating diet. Patient will be discharged home today. Guarded prognosis. Physical exam: Gen: This is a 89-year-old male awake, alert and oriented 2-3, slow to respond and hard of hearing, well-developed, well-nourished HEENT: Head is atraumatic, normocephalic. Pupils equal, round. Sclerae is anicteric. NECK: Supple. No JVD. No lymphadenopathy. No thyromegaly. LUNGS: Diminished breath sounds bilaterally with some scattered rhonchi noted. No intercostal retractions. HEART: Regular rate and rhythm. No murmur. ABDOMEN: Soft. Bowel sounds are present. No masses. No tenderness. EXTREMITIES: No pedal edema. No calf tenderness. NEUROLOGICAL: Patient is awake, alert and oriented x3. Cranial nerves 2 through 12 are grossly intact. Diffusely weak Please refer to medication reconciliation sheet for a list of medications. The impression and plan of care has been dictated by Nelly Castillo, Nurse Practitioner as directed. Dr. Ashlee MD I have performed a history and examination and MDM of this patient, discussed the same with the dictator, and agree with the dictator's assessment and plan as written ,documented as a scribe. Based on total visit time, I have performed more than 50% of the visit. Patient Condition at Discharge: Good Plan - Discharge Summary Discharge Rx Participant: No New Discharge Prescriptions: New Ertapenem [INVanz] 1 gm IVPB DAILY 10 Days #10 each Acetaminophen Tab [Tylenol] 650 mg PO Q6HR PRN tab PRN Reason: Mild Pain Or Fever > 100.5 Continue carvediloL [Coreg] 6.25 mg PO BID Aspirin 81 mg PO DAILY chew Multivitamins, Thera [Multivitamin (formulary)] 1 tab PO DAILY Docusate [Colace] 100 mg PO HS Tamsulosin [Flomax] 0.4 mg PO HS Potassium Chloride ER [K-Dur 20] 20 meq PO BID Isosorbide Mononitrate ER [Imdur] 30 mg PO DAILY Acitretin [Soriatane] 10 mg PO DAILY HYDROcodone/APAP 5-325MG [[place] 5-325] 0.5 tab PO HS Cholecalciferol [Vitamin D3 (25 Mcg = 1000 Iu)] 25 mcg PO DAILY HYDROcodone/APAP 5-325MG [[place] 5-325] 1 tab PO BID PRN PRN Reason: Pain Carbidopa-Levodopa ER 50-200Mg [Sinemet CR 50-200 mg] 1 tab PO BID Apixaban [Eliquis] 2.5 mg PO BID Rosuvastatin Calcium [Crestor] 5 mg PO HS Furosemide [Lasix] 20 mg PO BID Ferrous Sulfate [Iron (65 MG Elemental)] 325 mg PO Q48H Discharge Medication List carvediloL [Coreg] 6.25 mg PO BID 11/30/16 [History] Aspirin 81 mg PO DAILY chew 12/02/16 [Rx] Docusate [Colace] 100 mg PO HS 02/19/19 [History] Multivitamins, Thera [Multivitamin (formulary)] 1 tab PO DAILY 02/19/19 [History] Acitretin [Soriatane] 10 mg PO DAILY 02/27/22 [History] Apixaban [Eliquis] 2.5 mg PO BID 02/27/22 [History] Carbidopa-Levodopa ER 50-200Mg [Sinemet CR 50-200 mg] 1 tab PO BID 02/27/22 [History] Ferrous Sulfate [Iron (65 MG Elemental)] 325 mg PO Q48H 02/27/22 [History] Furosemide [Lasix] 20 mg PO BID 02/27/22 [History] HYDROcodone/APAP 5-325MG [[place] 5-325] 1 tab PO BID PRN 02/27/22 [History] Isosorbide Mononitrate ER [Imdur] 30 mg PO DAILY 02/27/22 [History] Potassium Chloride ER [K-Dur 20] 20 meq PO BID 02/27/22 [History] Rosuvastatin Calcium [Crestor] 5 mg PO HS 02/27/22 [History] Tamsulosin [Flomax] 0.4 mg PO HS 02/27/22 [History] Cholecalciferol [Vitamin D3 (25 Mcg = 1000 Iu)] 25 mcg PO DAILY 05/15/22 [History] HYDROcodone/APAP 5-325MG [[place] 5-325] 0.5 tab PO HS 05/15/22 [History] Acetaminophen Tab [Tylenol] 650 mg PO Q6HR PRN tab 05/19/22 [Rx] Ertapenem [INVanz] 1 gm IVPB DAILY 10 Days #10 each 05/19/22 [Rx] Follow up Appointment(s)/Referral(s): Juan Jose [facility], [NON-STAFF] - 1-2 Days [facility]Infusion [NON-STAFF] - 1 Week Wu Gibson MD [Primary Care Provider] - 1-2 days Patient Instructions/Handouts: Ertapenem (By injection), Urinary Tract Infection in Men (DC), Heart Healthy Diet (DC), Extended Spectrum Beta Lactamase (GEN), Midline Catheter (DC) Activity/Diet/Wound Care/Special Instructions: Activity Limited until follow-up Continue IV Invanz daily for the next 10 days Follow-up primary care provider on discharge Continue with home care Continue heart healthy diet Continue medications as prescribed Discharge Disposition: HOME WITH HOME HEALTH SERVICES
== END 2022-05-19 18:02 | disposition home health service (06) | DRG 690 ==
LOC: EC 15:02 → 5NMEDONC 17:27
PROVIDERS: ADMIT Hospitalist; ATTEND Hospitalist
PROC: 05HC33Z Insertion of Infusion Device into Left Basilic Vein, Percutaneous Approach (ICD-10-PCS; principal; 2022-05-19 15:20)
DX: N30.90 Cystitis, unspecified without hematuria (principal); Z16.12 Extended spectrum beta lactamase (ESBL) resistance; E78.5 Hyperlipidemia, unspecified; N40.0 Benign prostatic hyperplasia without lower urinary tract symptoms; G20 Parkinson's disease; B96.20 Unspecified Escherichia coli [E. coli] as the cause of diseases classified elsewhere; I10 Essential (primary) hypertension; I25.10 Atherosclerotic heart disease of native coronary artery without angina pectoris; Z95.5 Presence of coronary angioplasty implant and graft; Z95.1 Presence of aortocoronary bypass graft; Z89.611 Acquired absence of right leg above knee; Z89.612 Acquired absence of left leg above knee; I25.2 Old myocardial infarction; Z79.01 Long term (current) use of anticoagulants; Z79.82 Long term (current) use of aspirin; Z79.899 Other long term (current) drug therapy; Z85.828 Personal history of other malignant neoplasm of skin; Z86.19 Personal history of other infectious and parasitic diseases; Z87.440 Personal history of urinary (tract) infections; Z98.42 Cataract extraction status, left eye; Z98.41 Cataract extraction status, right eye; Z88.2 Allergy status to sulfonamides; Z88.1 Allergy status to other antibiotic agents; Z88.8 Allergy status to other drugs, medicaments and biological substances
CPT/HCPCS: 36410; 36415; 76937; 80048; 81001; 83605; 84145; 85025; 87040; 87077; 87086; 87186; 96365; 96366; 96375; 99284